=== PATIENT | female | born 1995 | race Caucasian/White ===

== ENCOUNTER 2019-05-07 16:49 | Emergency (ER) | payer MEDICAID, SELFPAY ==
[2019-05-07] VITALS (10 sets, daily range): BP systolic 91–124; BP diastolic 43–68; PULSE 63–92; RESP 16–20; TEMP 36.5–37.1; O2SAT 96–100; BMI 22.1
--- NOTE | 2019-05-07 16:56 | ED_ITS ---
Entered by Pari Wylie, acting as scribe for Documented by User: Tania Tran Key 05/07/19 17:47 HPI - Abdominal Pain General: Chief Complaint: Abdominal Pain Stated Complaint: Vomiting Time Seen by Provider: 05/07/19 16:55 Source: patient Mode of arrival: ambulatory History of Present Illness: HPI narrative: 23 yo female presents with nausea and vomiting. pt states this started last night. pt has had abdomen pain. pt states she is unable to stop vomiting and having muscle aches. pt has had diarrhea. pt denies any other symptoms at this time. MD elicited complaint: abdominal pain Onset (ago): day(s) (last night) Pain Consistency: constant Location: RLQ and LLQ Quality: cramping Radiation: LLQ and RLQ Exacerbating factors: vomiting Relieving factors: vomiting Associated Symptoms: Reports diarrhea Review of Systems GI: Reports: diarrhea PFSH ED PFSH: Statuses (acute, chronic, etc) shown below reflect problem list status as previously entered and may not be historically accurate Social History Smoking and tobacco status: never smoked Course Vital Signs: Vital signs: Vital Signs Temperature 97.7 F 05/07/19 16:57 Pulse Rate 82 05/07/19 18:35 Respiratory Rate 18 05/07/19 18:35 Blood Pressure 91/43 05/07/19 18:35 Pulse Oximetry 98 05/07/19 18:35 MDM - Abdominal Pain Lab Data: Labs: Lab Results 05/07/19 05/07/19 05/07/19 Range/Units 17:12 17:12 18:10 WBC 8.4 (4.0-10.0) 10^3/ uL RBC 4.43 (4.1-5.3) 10^6/u L Hgb 13.1 (11.5-15.3) g/dL Hct 38.6 (37.0-47.0) % MCV 87.1 (81-99) fL MCH 29.6 (28.0-34.0) pg MCHC 33.9 (30.0-36.0) g/dL RDW 12.5 (12.1-15.1) % Plt Count 248 (130-400) 10^3/c mm MPV 10.9 H (7.4-10.4) fL Neut % (Auto) 91.9 % Lymph % (Auto) 6.5 % [place] % (Auto) 1.3 % Eos % (Auto) 0.0 % Baso % (Auto) 0.1 % Neut # (Auto) 7.7 (1.8-7.7) 10^3/u L Lymph # (Auto) 0.5 L (0.8-4.8) 10^3/u L [place] # (Auto) 0.1 L (0.2-0.9) 10^3/u L Eos # (Auto) 0.0 (0.0-0.8) 10^3/u L Baso # (Auto) 0.0 (0.0-0.1) 10^3/u L Nucleated RBC % (a uto) 0 % Nucleated RBCs # 0.0 /100WBC Sodium 136 (136-145) mmol/L Potassium 3.6 (3.5-5.1) mmol/L Chloride 101 (98-107) mmol/L Carbon Dioxide 19 L (22-29) mmol/L Anion Gap 19.6 H (5-19) BUN 12 (6-20) mg/dL Creatinine 0.8 (0.5-0.9) mg/dL GFR Calculation 90.5 (90-130) mL/min Glucose 157 H (74-109) mg/dL Calcium 10.2 H (8.6-10.0) mg/Dl Total Bilirubin 0.5 (0.15-1.2) mg/dL AST 34 H (0-32) U/L ALT 40 H (0-33) U/L Alkaline Phosphata se 80 (35-105) IU/L Total Protein 7.6 (6.6-8.7) g/dL Albumin 5.0 (3.5-5.2) g/dL Globulin 2.6 (1.3-4.6) g/dL Lipase 8 L (13-60) U/L HCG, Qual Negative (Negative) Urine Color (Yellow) Urine Appearance (CLEAR) Urine pH (5-7) Ur Specific Gravit y (1.005-1.030) Urine Protein (Negative) Urine Glucose (UA) (Normal) Urine Ketones (Negative) Urine Occult Blood (Negative) Urine Nitrate (Negative) Urine Bilirubin (NEGATIVE) Urine Urobilinogen (Negative) mg/dL Ur Leukocyte Una ase (Negative) Urine RBC (0-2) /hpf Urine WBC (0-5) /hpf Ur Squamous Epith Cells (0-5) Amorphous Sediment Urine Bacteria (NONE) Urine Mucus 05/07/19 Range/Units 18:10 WBC (4.0-10.0) 10^3/ uL RBC (4.1-5.3) 10^6/u L Hgb (11.5-15.3) g/dL Hct (37.0-47.0) % MCV (81-99) fL MCH (28.0-34.0) pg MCHC (30.0-36.0) g/dL RDW (12.1-15.1) % Plt Count (130-400) 10^3/c mm MPV (7.4-10.4) fL Neut % (Auto) % Lymph % (Auto) % [place] % (Auto) % Eos % (Auto) % Baso % (Auto) % Neut # (Auto) (1.8-7.7) 10^3/u L Lymph # (Auto) (0.8-4.8) 10^3/u L [place] # (Auto) (0.2-0.9) 10^3/u L Eos # (Auto) (0.0-0.8) 10^3/u L Baso # (Auto) (0.0-0.1) 10^3/u L Nucleated RBC % (a uto) % Nucleated RBCs # /100WBC Sodium (136-145) mmol/L Potassium (3.5-5.1) mmol/L Chloride (98-107) mmol/L Carbon Dioxide (22-29) mmol/L Anion Gap (5-19) BUN (6-20) mg/dL Creatinine (0.5-0.9) mg/dL GFR Calculation (90-130) mL/min Glucose (74-109) mg/dL Calcium (8.6-10.0) mg/Dl Total Bilirubin (0.15-1.2) mg/dL AST (0-32) U/L ALT (0-33) U/L Alkaline Phosphata se (35-105) IU/L Total Protein (6.6-8.7) g/dL Albumin (3.5-5.2) g/dL Globulin (1.3-4.6) g/dL Lipase (13-60) U/L HCG, Qual (Negative) Urine Color Yellow (Yellow) Urine Appearance Cloudy (CLEAR) Urine pH 5 (5-7) Ur Specific Gravit y 1.020 (1.005-1.030) Urine Protein Trace (Negative) Urine Glucose (UA) Norm (Normal) Urine Ketones 1+ H (Negative) Urine Occult Blood Neg (Negative) Urine Nitrate Negative (Negative) Urine Bilirubin 1+ H (NEGATIVE) Urine Urobilinogen Norm (Negative) mg/dL Ur Leukocyte Una ase Negative (Negative) Urine RBC 0-4 H (0-2) /hpf Urine WBC 5-10 H (0-5) /hpf Ur Squamous Epith Cells 5-10 H (0-5) Amorphous Sediment 3+ Urine Bacteria 1+ H (NONE) Urine Mucus Trace Discharge Plan Discharge Patient Disposition: Home, Self-Care Clinical Impression: Gastroenteritis Condition: Stable Prescriptions: New ondansetron HCl [Zofran] 4 mg tablet 4 mg PO Q6H PRN (Reason: nausea and vomiting) Qty: 10 RF: 0 ketorolac 10 mg tablet 10 mg PO TID PRN (Reason: pain) Qty: 10 RF: 0 Discharge Orders: Discharge Order (Routine); Ordered 05/07/19 Ordered By: Deshaun Earl Referrals: Aureliano Rodas MD [Primary Care Provider] - Discharge Diet: Advance as tolerated Discharge Activity: Increase activity as tolerated Patient Instructions: Acute Nausea and Vomiting (ED), Gastroenteritis (ED) Activity Restrictions/Additional Instructions: Clear liquids for the next 12 hours, then advance diet as tolerated. Return for vomiting liquids despite medications, continued fever despite medications, worsening pain, other concerning symptoms. Coding Level of Care Code ED Aircraft Assembler for Chg Fwd Documented by User: Deshaun Earl DO 05/07/19 19:30 HPI - Abdominal Pain General: Chief Complaint: Abdominal Pain Stated Complaint: Vomiting Time Seen by Provider: 05/07/19 16:55 PFSH ED PFS: Statuses (acute, chronic, etc) shown below reflect problem list status as previously entered and may not be historically accurate Social History Smoking and tobacco status: never smoked Course ED course: 23-year-old female with vomiting and diarrhea. Seen earlier by Dr. Lang, and checked out to me. She states on reexam she is feeling much better. She is held down liquids here. Her labs are benign save a bicarbonate level of 19. She has had 2 L. She will be allowed discharge Vital Signs: Vital signs: Vital Signs Temperature 97.7 F 05/07/19 16:57 Pulse Rate 82 05/07/19 18:35 Respiratory Rate 18 05/07/19 18:35 Blood Pressure 91/43 05/07/19 18:35 Pulse Oximetry 98 05/07/19 18:35 MDM - Abdominal Pain Lab Data: Labs: Lab Results 05/07/19 05/07/19 05/07/19 Range/Units 17:12 17:12 18:10 WBC 8.4 (4.0-10.0) 10^3/ uL RBC 4.43 (4.1-5.3) 10^6/u L Hgb 13.1 (11.5-15.3) g/dL Hct 38.6 (37.0-47.0) % MCV 87.1 (81-99) fL MCH 29.6 (28.0-34.0) pg MCHC 33.9 (30.0-36.0) g/dL RDW 12.5 (12.1-15.1) % Plt Count 248 (130-400) 10^3/c mm MPV 10.9 H (7.4-10.4) fL Neut % (Auto) 91.9 % Lymph % (Auto) 6.5 % [place] % (Auto) 1.3 % Eos % (Auto) 0.0 % Baso % (Auto) 0.1 % Neut # (Auto) 7.7 (1.8-7.7) 10^3/u L Lymph # (Auto) 0.5 L (0.8-4.8) 10^3/u L [place] # (Auto) 0.1 L (0.2-0.9) 10^3/u L Eos # (Auto) 0.0 (0.0-0.8) 10^3/u L Baso # (Auto) 0.0 (0.0-0.1) 10^3/u L Nucleated RBC % (a uto) 0 % Nucleated RBCs # 0.0 /100WBC Sodium 136 (136-145) mmol/L Potassium 3.6 (3.5-5.1) mmol/L Chloride 101 (98-107) mmol/L Carbon Dioxide 19 L (22-29) mmol/L Anion Gap 19.6 H (5-19) BUN 12 (6-20) mg/dL Creatinine 0.8 (0.5-0.9) mg/dL GFR Calculation 90.5 (90-130) mL/min Glucose 157 H (74-109) mg/dL Calcium 10.2 H (8.6-10.0) mg/Dl Total Bilirubin 0.5 (0.15-1.2) mg/dL AST 34 H (0-32) U/L ALT 40 H (0-33) U/L Alkaline Phosphata se 80 (35-105) IU/L Total Protein 7.6 (6.6-8.7) g/dL Albumin 5.0 (3.5-5.2) g/dL Globulin 2.6 (1.3-4.6) g/dL Lipase 8 L (13-60) U/L HCG, Qual Negative (Negative) Urine Color (Yellow) Urine Appearance (CLEAR) Urine pH (5-7) Ur Specific Gravit y (1.005-1.030) Urine Protein (Negative) Urine Glucose (UA) (Normal) Urine Ketones (Negative) Urine Occult Blood (Negative) Urine Nitrate (Negative) Urine Bilirubin (NEGATIVE) Urine Urobilinogen (Negative) mg/dL Ur Leukocyte Una ase (Negative) Urine RBC (0-2) /hpf Urine WBC (0-5) /hpf Ur Squamous Epith Cells (0-5) Amorphous Sediment Urine Bacteria (NONE) Urine Mucus 05/07/19 Range/Units 18:10 WBC (4.0-10.0) 10^3/ uL RBC (4.1-5.3) 10^6/u L Hgb (11.5-15.3) g/dL Hct (37.0-47.0) % MCV (81-99) fL MCH (28.0-34.0) pg MCHC (30.0-36.0) g/dL RDW (12.1-15.1) % Plt Count (130-400) 10^3/c mm MPV (7.4-10.4) fL Neut % (Auto) % Lymph % (Auto) % [place] % (Auto) % Eos % (Auto) % Baso % (Auto) % Neut # (Auto) (1.8-7.7) 10^3/u L Lymph # (Auto) (0.8-4.8) 10^3/u L [place] # (Auto) (0.2-0.9) 10^3/u L Eos # (Auto) (0.0-0.8) 10^3/u L Baso # (Auto) (0.0-0.1) 10^3/u L Nucleated RBC % (a uto) % Nucleated RBCs # /100WBC Sodium (136-145) mmol/L Potassium (3.5-5.1) mmol/L Chloride (98-107) mmol/L Carbon Dioxide (22-29) mmol/L Anion Gap (5-19) BUN (6-20) mg/dL Creatinine (0.5-0.9) mg/dL GFR Calculation (90-130) mL/min Glucose (74-109) mg/dL Calcium (8.6-10.0) mg/Dl Total Bilirubin (0.15-1.2) mg/dL AST (0-32) U/L ALT (0-33) U/L Alkaline Phosphata se (35-105) IU/L Total Protein (6.6-8.7) g/dL Albumin (3.5-5.2) g/dL Globulin (1.3-4.6) g/dL Lipase (13-60) U/L HCG, Qual (Negative) Urine Color Yellow (Yellow) Urine Appearance Cloudy (CLEAR) Urine pH 5 (5-7) Ur Specific Gravit y 1.020 (1.005-1.030) Urine Protein Trace (Negative) Urine Glucose (UA) Norm (Normal) Urine Ketones 1+ H (Negative) Urine Occult Blood Neg (Negative) Urine Nitrate Negative (Negative) Urine Bilirubin 1+ H (NEGATIVE) Urine Urobilinogen Norm (Negative) mg/dL Ur Leukocyte Una ase Negative (Negative) Urine RBC 0-4 H (0-2) /hpf Urine WBC 5-10 H (0-5) /hpf Ur Squamous Epith Cells 5-10 H (0-5) Amorphous Sediment 3+ Urine Bacteria 1+ H (NONE) Urine Mucus Trace Discharge Plan Discharge Patient Disposition: Home, Self-Care Clinical Impression: Gastroenteritis Condition: Stable Prescriptions: New ondansetron HCl [Zofran] 4 mg tablet 4 mg PO Q6H PRN (Reason: nausea and vomiting) Qty: 10 RF: 0 ketorolac 10 mg tablet 10 mg PO TID PRN (Reason: pain) Qty: 10 RF: 0 Discharge Orders: Discharge Order (Routine); Ordered 05/07/19 Ordered By: Deshaun Earl Referrals: Aureliano Rodas MD [Primary Care Provider] - Discharge Diet: Advance as tolerated Discharge Activity: Increase activity as tolerated Patient Instructions: Acute Nausea and Vomiting (ED), Gastroenteritis (ED) Activity Restrictions/Additional Instructions: Clear liquids for the next 12 hours, then advance diet as tolerated. Return for vomiting liquids despite medications, continued fever despite medications, worsening pain, other concerning symptoms. Coding Level of Care Code ED Aircraft Assembler for Judyg Fwd The documentation recorded by the Dejan alvarado Bridget Annette, accurately reflects the service I personally performed and the decisions made by Key gillespie Eli N May 07, 2019 16:49
--- NOTE | 2019-05-07 16:59 | CTR_ITS ---
PROCEDURE INFORMATION: Exam: CT Abdomen And Pelvis With Contrast Exam date and time: 05/07/2019 5:05 PM Age: 23 years old Clinical indication: Abdominal pain; Additional info: Lower abdominal pain TECHNIQUE: Imaging protocol: Computed tomography of the abdomen and pelvis with intravenous contrast. Total DLP: 604.2 mGy-cm Radiation optimization: All CT scans at this facility use at least one of these dose optimization techniques: automated exposure control; mA and/or kV adjustment per patient size (includes targeted exams where dose is matched to clinical indication); or iterative reconstruction. Contrast material: OMNI 300; Contrast volume: 95 ml; Contrast route: IV; COMPARISON: CT abdomen pelvis w con* [id number] 03/19/2018 5:35 PM FINDINGS: Liver: Normal. No mass. Gallbladder and bile ducts: Normal. No calcified stones. No ductal dilation. Pancreas: Normal. No ductal dilation. Spleen: Normal. No splenomegaly. Adrenals: Normal. No mass. Kidneys and ureters: Normal. No hydronephrosis. Stomach and bowel: Unremarkable. No obstruction. No mucosal thickening. Appendix: No evidence of appendicitis. Intraperitoneal space: Unremarkable. No free air. No significant fluid collection. Vasculature: Unremarkable. No abdominal aortic aneurysm. Lymph nodes: Unremarkable. No enlarged lymph nodes. Bladder: Unremarkable as visualized. 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: The uterus and ovaries appear normal. Bones/joints: Unremarkable. No acute fracture. Soft tissues: Unremarkable. CT/CT abdomen pelvis w con* [id number] IMPRESSION: No acute abnormality is seen in the abdomen or pelvis. Radiation Dose CTDIVOL = (mGy): DLP = 604.2 (mGy-cm)
[2019-05-07] MEDS: sodium chloride 0.9% 1,000 ML 999 ML IV ×2 (17:31→18:37)
[2019-05-07] MEDS: ondansetron 2 mg/ML SDV 2 mL 4 MG IVP ×2 (17:32→22:20)
[2019-05-07] MEDS: morphine 4 mg/mL SDV 1 mL IVP (17:32)
[2019-05-07 17:48] LABS: Alanine Aminotransferase 40 U/L (0-33); Alkaline Phosphatase 80 IU/L (35-105); Anion Gap 19.6 (5-19); Aspartate Amino Transferase 34 U/L (0-32); Blood Urea Nitrogen 12 mg/dL (6-20); Calcium 10.2 mg/Dl (8.6-10.0); Carbon Dioxide 19 mmol/L (22-29); Chloride 101 mmol/L (98-107); Globulin 2.6 g/dL (1.3-4.6); Glomerular Filtration Rate 90.5 mL/min (90-130); Glucose 157 mg/dL (74-109); Lipase 8 U/L (13-60); Potassium 3.6 mmol/L (3.5-5.1); Sodium 136 mmol/L (136-145); Total Bilirubin 0.5 mg/dL (0.15-1.2); Total Protein 7.6 g/dL (6.6-8.7)
[2019-05-07 17:59] LABS: Basophils % 0.1 %; Hematocrit 38.6 % (37.0-47.0); Hemoglobin 13.1 g/dL (11.5-15.3); Lymphocytes # 0.5 10^3/uL (0.8-4.8); Lymphocytes % 6.5 %; Mean Corpuscular HGB Conc 33.9 g/dL (30.0-36.0); Mean Corpuscular Hemoglobin 29.6 pg (28.0-34.0); Mean Corpuscular Volume 87.1 fL (81-99); Mean Platelet Volume 10.9 fL (7.4-10.4); Monocytes # 0.1 10^3/uL (0.2-0.9); Monocytes % 1.3 %; Neutrophils # 7.7 10^3/uL (1.8-7.7); Neutrophils % 91.9 %; Nucleated Red Blood Cells % 0 %; Platelet Count 248 10^3/cmm (130-400); Red Blood Count 4.43 10^6/uL (4.1-5.3); Red Cell Distribution Width 12.5 % (12.1-15.1); White Blood Count 8.4 10^3/uL (4.0-10.0)
--- NOTE | 2019-05-07 18:15 | PC.NURSE ---
Pt to CT
[2019-05-07 18:51] LABS: HCG Qualitative Urine. Negative (Negative)
--- NOTE | 2019-05-07 19:02 | PC.NURSE ---
Report given to SUMI Maza
[2019-05-07 19:05] LABS: Urine Appearance Cloudy (CLEAR); Urine Color Yellow (Yellow)
[2019-05-07 19:06] LABS: Bilirubin Urine 1+ (NEGATIVE); Blood Urine Neg (Negative); Glucose Urine UA Norm (Normal); Ketones Urine 1+ (Negative); Leukocyte Esterase Urine Negative (Negative); Nitrate Urine Negative (Negative); Protein Urine Trace (Negative); Urobilinogen Urine Norm (Negative); pH Urine 5 (5-7)
[2019-05-07 19:14] LABS: Mucus Urine TRACE
[2019-05-07 19:15] LABS: Bacteria Urine 1+; RBC Urine 0-4 /hpf (0-2)
[2019-05-07 19:16] LABS: Add Urine Culture? No; Amorphous Sediment Urine 3+
--- NOTE | 2019-05-07 19:46 | PC.NURSE ---
Patient is a&O x 4, NAD, cooperative and resting quietly. Pt has no complaints at present.
== END 2019-05-07 22:35 | disposition home or self-care (01) ==
PROVIDERS: Emergency Medicine; Emergency Provider Emergency Medicine; Family Provider Family Medicine; PCP Family Medicine
DX: K52.9 Noninfective gastroenteritis and colitis, unspecified (principal)
CPT/HCPCS: 74177; 80053; 81001; 81025; 83690; 85025; 96360; 96361; 96374; 99283; J2270; J2405; J7030; Q9967

== ENCOUNTER 2019-08-31 08:28 | Emergency (ER) | payer MEDICAID, SELFPAY ==
--- NOTE | 2019-08-31 08:31 | W.ED.NAVMDI ---
HPI - Nausea/Vomiting/Diarrhea General: Chief complaint: Nausea/Vomiting/Diarrhea Stated complaint: N/V Time Seen by Provider: 08/31/19 08:29 Source: patient Mode of arrival: ambulatory Limitations: no limitations History of Present Illness: HPI Narrative: Patient is a 23-year-old female who presents to ED today with complaints of nausea, vomiting, diarrhea, abdominal pain that began yesterday. Patient tells me she has had a few episodes of watery nonbloody diarrhea. She reports countless episodes of vomiting but when asked specifically they are more dry heaving than actual vomit. Patient states she has had these episodes several times previously. When asked she does admit to heavy daily marijuana use over the past several years. She seems immediately agitated when I even suggested this could be cannabis hyperemesis syndrome. She states she was admitted to the hospital in 2018 and was told she needed work-up for Lupus and Crohn's so thinks her symptoms might be related to this. She never followed up or received with the work-up requested. Patient has not been running fevers. She has not had any recent travel. No sick contacts. No bad food exposure. No recent antibiotic use. MD elicited complaint: nausea, vomiting, diarrhea and abdominal pain Onset (ago): hour(s) Description of diarrhea: watery Associated nausea: Yes Associated abdominal pain: Yes Location of pain: Diffuse Pain consistency: constant Severity: moderate Quality: cramping Exacerbating factors: none Relieving factors: none Context: marijuana use Associated symtoms: Reports nausea; Denies change in vision, chest pain, dysuria, fatigue, headache(s), malaise, palpitations or syncope Review of Systems Const: Denies: fever, chills, body aches, fatigue or malaise Eyes: Denies: change in vision, blurry vision, photophobia, floaters or seeing flashes ENMT: Denies: throat pain, enlarged tonsils or painful swallowing Card: Denies: chest pain, palpitations, irregular heart rhythm, lightheadedness, syncope or shortness of breath on exertion Resp: Denies: shortness of breath, productive cough or pain on inspiration GI: Reports: abdominal pain, nausea, vomiting and diarrhea; Denies: vomiting blood, coffee grounds in vomit, difficulty swallowing, heartburn/indigestion, painful bowel movements, blood in stool, black tarry stool, mucus in stool, white/light colored stool or fatty stool : Denies: flank pain, difficulty urinating, painful urination, urinary frequency, urinary urgency or urinary hesitancy Musc: Denies: neck pain, back pain or joint pain Skin/Breast: Denies: rash Neuro: Denies: headache, numbness in extremities, weakness in extremities or changes in sensation PFSH ED PFSH: Social History Smoking and tobacco status: never smoked Physical Exam Const: COMMON NORMALS: average body habitus, oriented x3, no limitations, healthy appearing, alert and well nourished GENERAL APPEARANCE: in distress (nauseous, dry heaving ) HENMT: COMMON NORMALS: normocephalic and head/scalp atraumatic HEAD & SCALP: normocephalic and atraumatic Resp: COMMON NORMALS: normal respiratory effort and clear to auscultation bilaterally AUSCULTATION: clear to auscultation bilaterally Cardio: COMMON NORMALS: regular rate and regular rhythm RATE: regular rate RHYTHM: regular rhythm GI: COMMON NORMALS: normal to inspection, nondistended, normoactive bowel sounds, no hepatosplenomegaly and no masses PALPATION: Yes tender (mild diffusely ) and Yes no hepatosplenomegaly : COMMON NORMALS: Yes no CVA tenderness BLADDER/KIDNEY EXAM: Yes no CVA tenderness Back/Pelvis: COMMON NORMALS: no CVA tenderness Extremity: COMMON NORMALS: normal to inspection Neuro: COMMON NORMALS: oriented x3 SENSORIUM/ORIENTATION: Yes alert Skin: COMMON NORMALS: no rashes or lesions noted GENERAL SKIN EXAM: no rashes or lesions noted Course Vital Signs: Vital signs: Vital Signs Pulse Rate 75 08/31/19 11:28 Respiratory Rate 16 08/31/19 11:28 Blood Pressure 118/70 08/31/19 11:28 Pulse Oximetry 98 08/31/19 11:28 MDM - Nausea/Vomiting/Diarrhea Lab Data: Labs: Lab Results 08/31/19 08/31/19 08/31/19 Range/Units 08:39 08:39 08:39 WBC 8.6 (4.0-10.0) 10^3/ uL RBC 4.57 (4.1-5.3) 10^6/u L Hgb 13.6 (11.5-15.3) g/dL Hct 40.8 (37.0-47.0) % MCV 89.3 (81-99) fL MCH 29.8 (28.0-34.0) pg MCHC 33.3 (30.0-36.0) g/dL RDW 12.5 (12.1-15.1) % Plt Count 255 (130-400) 10^3/c mm MPV 10.5 H (7.4-10.4) fL Neut % (Auto) 73.4 % Lymph % (Auto) 22.1 % [place] % (Auto) 3.5 % Eos % (Auto) 0.2 % Baso % (Auto) 0.4 % Neut # (Auto) 6.3 (1.8-7.7) 10^3/u L Lymph # (Auto) 1.9 (0.8-4.8) 10^3/u L [place] # (Auto) 0.3 (0.2-0.9) 10^3/u L Eos # (Auto) 0.0 (0.0-0.8) 10^3/u L Baso # (Auto) 0.0 (0.0-0.1) 10^3/u L Nucleated RBC % (a uto) 0 % Nucleated RBCs # 0.0 /100WBC Sodium 138 (136-145) mmol/L Potassium 3.8 (3.5-5.1) mmol/L Chloride 103 (98-107) mmol/L Carbon Dioxide 21 L (22-29) mmol/L Anion Gap 17.8 (5-19) BUN 10 (6-20) mg/dL Creatinine 0.8 (0.5-0.9) mg/dL GFR Calculation 90.5 (90-130) mL/min Glucose 166 H (65-115) mg/dL Calculated Osmolal ity 286 (285-295) mOsm/k g Calcium 10.5 (8.5-10.5) mg/dL Total Bilirubin 0.5 (0.15-1.2) mg/dL AST 21 (0-32) U/L ALT 23 (0-33) U/L Alkaline Phosphata se 50 (35-105) IU/L Total Protein 7.8 (6.6-8.7) g/dL Albumin 4.8 (3.5-5.2) g/dL Globulin 3.0 (1.3-4.6) g/dL Lipase 13 (13-60) U/L HCG, Qual Negative (Negative) Discharge Plan Discharge Patient Disposition: Home, Self-Care Clinical Impression: Cannabis hyperemesis syndrome concurrent with and due to cannabis abuse Condition: Stable Prescriptions: Continued Zofran 4 mg tablet 4 mg PO Q6H PRN (Reason: nausea and vomiting) Qty: 15 RF: 0 No Action ketorolac 10 mg tablet 10 mg PO TID PRN (Reason: pain) Qty: 10 RF: 0 Discharge Orders: Discharge Order (Routine); Ordered 08/31/19 Ordered By: Komal Kilpatrick Referrals: Aureliano Rodas MD [Primary Care Provider] - Discharge Diet: Advance as tolerated Discharge Activity: Increase activity as tolerated Patient Instructions: Marijuana Abuse Activity Restrictions/Additional Instructions: You may return to the emergency department for worsening pain, worsening nausea/vomiting, or diarrhea. Return for fevers greater than 100.4 or greater. You may use the prescription Zofran as needed for nausea and vomiting. As we discussed daily heavy marijuana use is not healthy and most likely is causing your symptoms. Ultimately it is up to you whether you stop using this drug. Discharge Date/Time: 08/31/19 11:29 Coding Level of Care Code ED Jumpbasting Canvas Baster for Carlos Ahuja Exam Comprehensive
[2019-08-31 08:33] VITALS: BP 111/66; PULSE 71; RESP 19; O2SAT 99; BMI 23.3
[2019-08-31] MEDS: sodium chloride 0.9% 1,000 ML 999 ML IV (08:49)
[2019-08-31] MEDS: LORazepam 2 mg/mL INJ 1 mL 1 MG IVP (08:50)
[2019-08-31] MEDS: ondansetron 2 mg/ML SDV 2 mL 4 MG IVP (08:50)
[2019-08-31 08:51] LABS: Basophils % 0.4 %; Eosinophils % 0.2 %; Hematocrit 40.8 % (37.0-47.0); Hemoglobin 13.6 g/dL (11.5-15.3); Lymphocytes # 1.9 10^3/uL (0.8-4.8); Lymphocytes % 22.1 %; Mean Corpuscular HGB Conc 33.3 g/dL (30.0-36.0); Mean Corpuscular Hemoglobin 29.8 pg (28.0-34.0); Mean Corpuscular Volume 89.3 fL (81-99); Mean Platelet Volume 10.5 fL (7.4-10.4); Monocytes # 0.3 10^3/uL (0.2-0.9); Monocytes % 3.5 %; Neutrophils # 6.3 10^3/uL (1.8-7.7); Neutrophils % 73.4 %; Nucleated Red Blood Cells % 0 %; Platelet Count 255 10^3/cmm (130-400); Red Blood Count 4.57 10^6/uL (4.1-5.3); Red Cell Distribution Width 12.5 % (12.1-15.1); White Blood Count 8.6 10^3/uL (4.0-10.0)
[2019-08-31] MEDS: haloperidol inj 5 mg/mL INJ 1 mL IVP (08:52)
[2019-08-31 09:10] LABS: Alanine Aminotransferase 23 U/L (0-33); Albumin Level 4.8 g/dL (3.5-5.2); Alkaline Phosphatase 50 IU/L (35-105); Anion Gap 17.8 (5-19); Aspartate Amino Transferase 21 U/L (0-32); Blood Urea Nitrogen 10 mg/dL (6-20); Calcium 10.5 mg/dL (8.5-10.5); Carbon Dioxide 21 mmol/L (22-29); Chloride 103 mmol/L (98-107); Glomerular Filtration Rate 90.5 mL/min (90-130); Glucose 166 mg/dL (65-115); Lipase 13 U/L (13-60); Osmolality Calculated 286 mOsm/kg (285-295); Potassium 3.8 mmol/L (3.5-5.1); Sodium 138 mmol/L (136-145); Total Bilirubin 0.5 mg/dL (0.15-1.2); Total Protein 7.8 g/dL (6.6-8.7)
[2019-08-31 09:13] LABS: HCG, Serum Qual Negative (Negative)
[2019-08-31 10:16] VITALS: PULSE 70; RESP 15; O2SAT 98
--- NOTE | 2019-08-31 10:43 | PC.NURSE ---
Upon D/C pt started to vomit again. Komal MCCANN informed, orders received.
[2019-08-31 10:45] VITALS: RESP 16; O2SAT 98
[2019-08-31] MEDS: promethazine 25 mg/mL SDV 1 mL IM (11:09)
[2019-08-31 11:28] VITALS: BP 118/70; PULSE 75; RESP 16; O2SAT 98
== END 2019-08-31 11:29 | disposition home or self-care (01) ==
PROVIDERS: Emergency Provider Physician Assistant; Family Provider Family Medicine; PCP Family Medicine
DX: F12.188 Cannabis abuse with other cannabis-induced disorder (principal); R11.10 Vomiting, unspecified
CPT/HCPCS: 12345; 80053; 83690; 84703; 85025; 96361; 96372; 96374; 96375; 99282; 99283; J1630; J2060; J2405; J2550; J7030

== ENCOUNTER 2019-09-02 09:54 | Emergency (ER) | payer MEDICAID, SELFPAY ==
--- NOTE | 2019-09-02 09:57 | W.ED.NAVMDI ---
HPI - Nausea/Vomiting/Diarrhea General: Stated complaint: N/V Time Seen by Provider: 09/02/19 09:57 Source: patient Mode of arrival: ambulatory Limitations: no limitations Review of Systems General: Reports: 10 or more systems reviewed and unremarkable except in HPI and below PFSH ED PFSH: Social History Smoking and tobacco status: never smoked Physical Exam Const: COMMON NORMALS: no apparent distress and oriented x3 GENERAL APPEARANCE: cooperative HENMT: COMMON NORMALS: normocephalic, TM's normal bilaterally and external nose normal HEAD & SCALP: normal to inspection and normocephalic NOSE: external nose normal TYMPANIC MEMBRANE: TM's normal bilaterally MOUTH: oral and palatal mucosa normal THROAT: posterior oropharynx normal Eye: GENERAL EYE: normal appearance of both eyes Neck/C-Spine: COMMON NORMALS: full ROM Lymph: LYMPHATIC: no lymphadenopathy noted Chest: COMMONS NORMALS: inspection of chest normal Resp: COMMON NORMALS: normal respiratory effort EFFORT & INSPECTION: Yes able to speak in complete sentences Cardio: COMMON NORMALS: regular rate and regular rhythm RATE: regular rate RHYTHM: regular rhythm GI: COMMON NORMALS: non-tender : COMMON NORMALS: Yes no CVA tenderness BLADDER/KIDNEY EXAM: Yes no CVA tenderness Back/Pelvis: COMMON NORMALS: no CVA tenderness and thoracic and lumbar spine normal to inspection Extremity: COMMON NORMALS: normal to inspection Neuro: COMMON NORMALS: oriented x3 and moves all extremities Psych: COMMON NORMALS: mental status grossly normal and cooperative Skin: COMMON NORMALS: no rashes or lesions noted GENERAL SKIN EXAM: no rashes or lesions noted Discharge Plan Discharge Prescriptions: No Action ketorolac 10 mg tablet 10 mg PO TID PRN (Reason: pain) Qty: 10 RF: 0 Zofran 4 mg tablet 4 mg PO Q6H PRN (Reason: nausea and vomiting) Qty: 15 RF: 0 Coding Level of Care Code ED Orthotic/Prosthetic Practitioner for Carlos Ahuja
[2019-09-02 10:00] VITALS: BP 114/72; PULSE 70; RESP 17; TEMP 36.9; O2SAT 98; BMI 22.1
--- NOTE | 2019-09-02 10:02 | ED_ITS ---
HPI - Nausea/Vomiting/Diarrhea General: Chief complaint: Nausea/Vomiting/Diarrhea Stated complaint: N/V Time Seen by Provider: 09/02/19 09:57 Source: patient Mode of arrival: ambulatory Limitations: no limitations History of Present Illness: HPI Narrative: 23-year-old female who has a history of cyclical vomiting syndrome along with marijuana abuse. Patient seen here 2 days ago for cyclical vomiting. She states she has continued to vomit. Denies any pain. She is had no fever. MD elicited complaint: nausea and vomiting Pertinent past history: cyclical vomiting Onset (ago): day(s) Associated nausea: Yes Location of pain: None Exacerbating factors: none Relieving factors: none Associated symtoms: Reports nausea; Denies chest pain, dysuria or headache(s) Review of Systems Const: Denies: fever, chills, body aches or change in appetite Eyes: Denies: blurry vision or eye discomfort ENMT: Denies: throat pain or dental pain Card: Denies: chest pain Resp: Denies: shortness of breath GI: Reports: nausea and vomiting : Denies: painful urination Musc: Denies: neck pain or back pain Skin/Breast: Denies: rash Neuro: Denies: headache Psych: Denies: depression Woo/Lymph: Denies: easy bruising All/Imm: Denies: hives PFSH ED PFSH: Social History Smoking and tobacco status: never smoked Physical Exam Const: COMMON NORMALS: no apparent distress, oriented x3 and healthy appearing HENMT: COMMON NORMALS: normocephalic and head/scalp atraumatic HEAD & SCALP: normocephalic and atraumatic Eye: COMMON NORMALS: PERRL and EOMs intact bilaterally PUPIL: Yes PERRL Neck/C-Spine: COMMON NORMALS: full ROM and supple Chest: COMMONS NORMALS: inspection of chest normal and palpation of chest normal Resp: COMMON NORMALS: normal respiratory effort, no retractions, no use of accessory muscles and clear to auscultation bilaterally AUSCULTATION: clear to auscultation bilaterally Cardio: COMMON NORMALS: regular rate, regular rhythm and no murmurs RATE: regular rate RHYTHM: regular rhythm GI: COMMON NORMALS: normal to inspection, nondistended, normoactive bowel sounds, soft to palpation, non-tender and no masses PALPATION: Yes soft Extremity: COMMON NORMALS: normal to inspection and full ROM Neuro: COMMON NORMALS: oriented x3, moves all extremities and no focal motor deficits Psych: COMMON NORMALS: mental status grossly normal, thought process normal and cooperative THOUGHT PROCESS: normal thought process Skin: COMMON NORMALS: no rashes or lesions noted and no wounds GENERAL SKIN EXAM: no rashes or lesions noted Course Vital Signs: Vital signs: Vital Signs Temperature 98.4 F 09/02/19 10:00 Pulse Rate 90 09/02/19 11:42 Respiratory Rate 17 09/02/19 11:42 Blood Pressure 113/71 09/02/19 11:42 Pulse Oximetry 100 09/02/19 11:42 MDM - Nausea/Vomiting/Diarrhea MDM Narrative: Medical decision making narrative: Patient presents here with vomiting and has a history of cyclical vomiting. Patient's lab work here is normal. She is improved after IV nausea meds. Patient is stable for discharge and return if worsening. Lab Data: Labs: Lab Results 09/02/19 09/02/19 09/02/19 Range/Units 10:15 10:15 11:08 WBC 8.9 (4.0-10.0) 10^3/ uL RBC 4.61 (4.1-5.3) 10^6/u L Hgb 13.9 (11.5-15.3) g/dL Hct 41.9 (37.0-47.0) % MCV 90.9 (81-99) fL MCH 30.2 (28.0-34.0) pg MCHC 33.2 (30.0-36.0) g/dL RDW 12.4 (12.1-15.1) % Plt Count 259 (130-400) 10^3/c mm MPV 10.8 H (7.4-10.4) fL Neut % (Auto) 79.2 % Lymph % (Auto) 16.7 % Sully % (Auto) 3.6 % Eos % (Auto) 0.1 % Baso % (Auto) 0.2 % Neut # (Auto) 7.1 (1.8-7.7) 10^3/u L Lymph # (Auto) 1.5 (0.8-4.8) 10^3/u L Sully # (Auto) 0.3 (0.2-0.9) 10^3/u L Eos # (Auto) 0.0 (0.0-0.8) 10^3/u L Baso # (Auto) 0.0 (0.0-0.1) 10^3/u L Nucleated RBC % (a uto) 0 % Nucleated RBCs # 0.0 /100WBC Sodium 138 (136-145) mmol/L Potassium 3.6 (3.5-5.1) mmol/L Chloride 99 (98-107) mmol/L Carbon Dioxide 24 (22-29) mmol/L Anion Gap 18.6 (5-19) BUN 10 (6-20) mg/dL Creatinine 0.9 (0.5-0.9) mg/dL GFR Calculation 79.0 L (90-130) mL/min Glucose 128 H (65-115) mg/dL Calculated Osmolal ity 284 L (285-295) mOsm/k g Calcium 9.9 (8.5-10.5) mg/dL Total Bilirubin 0.5 (0.15-1.2) mg/dL AST 37 H (0-32) U/L ALT 40 H (0-33) U/L Alkaline Phosphata se 51 (35-105) IU/L Total Protein 7.7 (6.6-8.7) g/dL Albumin 4.9 (3.5-5.2) g/dL Globulin 2.8 (1.3-4.6) g/dL Lipase 23 (13-60) U/L HCG, Qual Negative (Negative) Discharge Plan Discharge Patient Disposition: Home, Self-Care Clinical Impression: Cyclical vomiting Condition: Stable Prescriptions: New Compazine 10 mg tablet 10 mg PO Q8H PRN (Reason: nausea and vomiting) Qty: 20 RF: 0 No Action Ativan 1 mg Tablet 1 mg PO DAILY PRN (Reason: Anxiety) RF: 0 ondansetron HCl [Zofran] 4 mg tablet 4 mg PO Q6H PRN (Reason: nausea and vomiting) Qty: 15 RF: 0 Discharge Orders: Discharge Order (Routine); Ordered 09/02/19 Ordered By: Jesse Josue Referrals: Aureliano Rodas MD [Primary Care Provider] - 1-3 days Discharge Diet: Advance as tolerated Discharge Activity: Resume usual activity Patient Instructions: Acute Nausea and Vomiting (ED) Stand Alone Forms: Work/School Release Discharge Date/Time: 09/02/19 11:45 Coding Level of Care Code ED Middleware Architect for Carlos Ahuja
[2019-09-02] MEDS: metoclopramide 5 mg/mL SDV 2 mL 10 MG IVP (10:17)
[2019-09-02] MEDS: diphenhydrAMINE 50 mg/mL SDV 1mL IVP (10:17)
[2019-09-02] MEDS: LORazepam 2 mg/mL INJ 1 mL IVP (10:17)
[2019-09-02] MEDS: sodium chloride 0.9% 1,000 ML 999 ML IV (10:22)
--- NOTE | 2019-09-02 10:30 | PC.NURSE ---
Pt spitting in to puke bucket, no vomit seen by nurse. Pt also found sticking her finger down her throat and she stated I just have to throw this up.
[2019-09-02 10:41] LABS: Basophils % 0.2 %; Eosinophils % 0.1 %; Hematocrit 41.9 % (37.0-47.0); Hemoglobin 13.9 g/dL (11.5-15.3); Lymphocytes # 1.5 10^3/uL (0.8-4.8); Lymphocytes % 16.7 %; Mean Corpuscular HGB Conc 33.2 g/dL (30.0-36.0); Mean Corpuscular Hemoglobin 30.2 pg (28.0-34.0); Mean Corpuscular Volume 90.9 fL (81-99); Mean Platelet Volume 10.8 fL (7.4-10.4); Monocytes # 0.3 10^3/uL (0.2-0.9); Monocytes % 3.6 %; Neutrophils # 7.1 10^3/uL (1.8-7.7); Neutrophils % 79.2 %; Nucleated Red Blood Cells % 0 %; Platelet Count 259 10^3/cmm (130-400); Red Blood Count 4.61 10^6/uL (4.1-5.3); Red Cell Distribution Width 12.4 % (12.1-15.1); White Blood Count 8.9 10^3/uL (4.0-10.0)
[2019-09-02 10:52] LABS: Alanine Aminotransferase 40 U/L (0-33); Albumin Level 4.9 g/dL (3.5-5.2); Alkaline Phosphatase 51 IU/L (35-105); Anion Gap 18.6 (5-19); Aspartate Amino Transferase 37 U/L (0-32); Blood Urea Nitrogen 10 mg/dL (6-20); Calcium 9.9 mg/dL (8.5-10.5); Carbon Dioxide 24 mmol/L (22-29); Chloride 99 mmol/L (98-107); Globulin 2.8 g/dL (1.3-4.6); Glucose 128 mg/dL (65-115); Lipase 23 U/L (13-60); Osmolality Calculated 284 mOsm/kg (285-295); Potassium 3.6 mmol/L (3.5-5.1); Sodium 138 mmol/L (136-145); Total Bilirubin 0.5 mg/dL (0.15-1.2); Total Protein 7.7 g/dL (6.6-8.7)
[2019-09-02 11:24] LABS: HCG Qualitative Urine. Negative (Negative)
[2019-09-02 11:42] VITALS: BP 113/71; PULSE 90; RESP 17; O2SAT 100
[2019-09-02 11:55] LABS: Add Urine Microscopic? YES; Bacteria Urine 4+; Bilirubin Urine Neg (NEGATIVE); Blood Urine Neg (Negative); Glucose Urine UA Norm (Normal); Ketones Urine Negative (Negative); Leukocyte Esterase Urine Negative (Negative); Nitrate Urine Negative (Negative); Protein Urine Trace (Negative); Specific Gravity, Urine 1.025 (1.005-1.030); Urine Appearance Hazy (CLEAR); Urine Color Yellow (Yellow); Urobilinogen Urine 1 mg/dL (Negative); WBC Urine 0-4 /hpf (0-5); pH Urine 5 (5-7)
[2019-09-02 11:56] LABS: Add Urine Culture? No
== END 2019-09-02 11:45 | disposition home or self-care (01) ==
PROVIDERS: Emergency Provider Emergency Medicine; Family Provider Family Medicine; PCP Family Medicine
DX: R11.15 Cyclical vomiting syndrome unrelated to migraine (principal)
CPT/HCPCS: 12345; 80053; 81001; 81025; 83690; 85025; 96360; 96361; 96374; 96375; 99283; J1200; J2060; J2765; J7030

== ENCOUNTER 2019-09-04 02:51 | Emergency (ER) | payer MEDICAID, SELFPAY ==
[2019-09-04 03:02] VITALS: BP 134/70; PULSE 85; RESP 22; TEMP 36.4; O2SAT 98; BMI 22.1
[2019-09-04 03:20] LABS: Basophils % 0.3 %; Eosinophils # 0.1 10^3/uL (0.0-0.8); Eosinophils % 0.7 %; Hematocrit 39.3 % (37.0-47.0); Hemoglobin 13.1 g/dL (11.5-15.3); Lymphocytes # 5.4 10^3/uL (0.8-4.8); Lymphocytes % 52.5 %; Mean Corpuscular HGB Conc 33.3 g/dL (30.0-36.0); Mean Corpuscular Volume 90.1 fL (81-99); Mean Platelet Volume 10.8 fL (7.4-10.4); Monocytes # 0.6 10^3/uL (0.2-0.9); Monocytes % 5.5 %; Neutrophils # 4.2 10^3/uL (1.8-7.7); Neutrophils % 40.7 %; Nucleated Red Blood Cells % 0 %; Platelet Count 284 10^3/cmm (130-400); Red Blood Count 4.36 10^6/uL (4.1-5.3); Red Cell Distribution Width 12.3 % (12.1-15.1); White Blood Count 10.2 10^3/uL (4.0-10.0)
[2019-09-04] MEDS: sodium chloride 0.9% 1,000 ML 999 ML IV ×2 (03:22→04:30)
[2019-09-04] MEDS: ondansetron 2 mg/ML SDV 2 mL 4 MG IVP (03:24)
[2019-09-04] MEDS: haloperidol inj 5 mg/mL INJ 1 mL 3 MG IVP ×2 (03:25→04:39)
[2019-09-04] MEDS: LORazepam 2 mg/mL INJ 1 mL 1 MG IVP ×2 (03:26→04:39)
[2019-09-04 03:28] LABS: HCG, Serum Qual Negative (Negative)
[2019-09-04 03:37] LABS: Alanine Aminotransferase 38 U/L (0-33); Albumin Level 4.5 g/dL (3.5-5.2); Alkaline Phosphatase 47 IU/L (35-105); Aspartate Amino Transferase 23 U/L (0-32); Blood Urea Nitrogen 7 mg/dL (6-20); C Reactive Protein 0.4 mg/L (0.0-4.9); Calcium 9.3 mg/dL (8.5-10.5); Carbon Dioxide 23 mmol/L (22-29); Chloride 102 mmol/L (98-107); Globulin 2.6 g/dL (1.3-4.6); Glucose 122 mg/dL (65-115); Lipase 49 U/L (13-60); Osmolality Calculated 287 mOsm/kg (285-295); Sodium 140 mmol/L (136-145); Total Bilirubin 0.4 mg/dL (0.15-1.2); Total Protein 7.1 g/dL (6.6-8.7)
--- NOTE | 2019-09-04 04:37 | ED_ITS ---
HPI - Nausea/Vomiting/Diarrhea General: Chief complaint: Abdominal Pain Stated complaint: n/v/d Time Seen by Provider: 09/04/19 03:09 History of Present Illness: HPI Narrative: 23-year-old female presents with vomiting. This is her third visit to the ER in 4 days. She denies fever. She states she has had a small amount of diarrhea. She says that her belly hurts because of all the heaving. No blood in the stool or vomit. She had the same complaint the previous 2 visits, and had been diagnosed with cyclic vomiting syndrome, possibly related to marijuana use. MD elicited complaint: nausea, vomiting, diarrhea and abdominal pain Onset (ago): day(s) (-) Description of vomiting: watery Description of diarrhea: watery Associated nausea: Yes Associated abdominal pain: Yes Location of pain: Diffuse Pain consistency: intermittent Exacerbating factors: vomiting Associated symtoms: Reports headache(s) and nausea; Denies anxiety, change in vision, chest pain, dizziness, dysuria or palpitations Review of Systems Const: Reports: chills; Denies: fever Eyes: Denies: change in vision or blurry vision ENMT: Denies: painful swallowing, swelling of lips/tongue, bleeding gums or facial/sinus pain Card: Denies: chest pain, palpitations, irregular heart rhythm or edema Resp: Denies: shortness of breath, productive cough, non-productive cough or wheezing GI: Reports: nausea : Denies: painful urination or blood in urine Musc: Denies: neck pain or back pain Skin/Breast: Denies: rash, itching or redness Neuro: Reports: headache; Denies: dizziness, vertigo or confusion Psych: Denies: anxiety PFSH ED PFSH: Social History Smoking and tobacco status: never smoked Female 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 History: Date of last menstrual period: 08/31/19 Physical Exam Const: GENERAL APPEARANCE: well developed ORIENTATION/CONSCIOUSNESS: Yes oriented to person, Yes oriented to place and Yes oriented to time HENMT: COMMON NORMALS: normocephalic, external ears normal and external nose normal HEAD & SCALP: normocephalic FACE & SINUS: normal facial exam NOSE: external nose normal and no nasal discharge EXTERNAL EAR: Yes external ears normal MOUTH: tongue normal Eye: COMMON NORMALS: PERRL, EOMs intact bilaterally and conjunctivae normal EYELID: eyelids normal CONJUNCTIVA: Yes conjunctivae normal PUPIL: Yes PERRL Neck/C-Spine: GENERAL: No tracheal deviation Chest: COMMONS NORMALS: inspection of chest normal CHEST: No tenderness Resp: COMMON NORMALS: clear to auscultation bilaterally EFFORT & INSPECTION: No tachypneic, No respiratory distress, No retractions, No uses accessory muscles and No tracheal deviation AUSCULTATION: clear to auscultation bilaterally, no rhonchi, no wheezes and lung sounds not diminished Cardio: COMMON NORMALS: regular rate and regular rhythm RATE: regular rate RHYTHM: regular rhythm HEART SOUNDS: no murmurs PERIPHERAL PULSES: radial pulses present GI: INSPECTION: No abdominal distension AUSCULTATION: No hyperactive bowel sounds and No hypoactive bowel sounds PALPATION: Yes tender (Diffuse), Yes guarding and No rigid Neuro: SENSORIUM/ORIENTATION: Yes oriented to person, Yes oriented to place and Yes oriented to time Psych: COMMON NORMALS: mental status grossly normal Skin: COMMON NORMALS: no rashes or lesions noted GENERAL SKIN EXAM: no rashes or lesions noted Course Vital Signs: Vital signs: Vital Signs Temperature 97.5 F L 09/04/19 03:02 Pulse Rate 85 09/04/19 03:02 Respiratory Rate 22 H 09/04/19 03:02 Blood Pressure 134/70 09/04/19 03:02 Pulse Oximetry 98 09/04/19 03:02 MDM - Nausea/Vomiting/Diarrhea MDM Narrative: Medical decision making narrative: 23-year-old female here for the third time with vomiting. Her white blood cell count is 10. Her potassium is 3. She has been repleted for that. She is received some fluid. She has not vomited in 2 hours. Haldol and Ativan seem to have worked best for her vomiting. She will go home on [employer]. She will be told to not fill the Compazine, as she has not yet. Lab Data: Labs: Lab Results 09/04/19 09/04/19 09/04/19 Range/Units 03:12 03:12 03:12 WBC 10.2 H (4.0-10.0) 10^3/ uL RBC 4.36 (4.1-5.3) 10^6/u L Hgb 13.1 (11.5-15.3) g/dL Hct 39.3 (37.0-47.0) % MCV 90.1 (81-99) fL MCH 30.0 (28.0-34.0) pg MCHC 33.3 (30.0-36.0) g/dL RDW 12.3 (12.1-15.1) % Plt Count 284 (130-400) 10^3/c mm MPV 10.8 H (7.4-10.4) fL Neut % (Auto) 40.7 % Lymph % (Auto) 52.5 % Kidder % (Auto) 5.5 % Eos % (Auto) 0.7 % Baso % (Auto) 0.3 % Neut # (Auto) 4.2 (1.8-7.7) 10^3/u L Lymph # (Auto) 5.4 H (0.8-4.8) 10^3/u L Kidder # (Auto) 0.6 (0.2-0.9) 10^3/u L Eos # (Auto) 0.1 (0.0-0.8) 10^3/u L Baso # (Auto) 0.0 (0.0-0.1) 10^3/u L Nucleated RBC % (a uto) 0 % Nucleated RBCs # 0.0 /100WBC Sodium 140 (136-145) mmol/L Potassium 3.0 L (3.5-5.1) mmol/L Chloride 102 (98-107) mmol/L Carbon Dioxide 23 (22-29) mmol/L Anion Gap 18.0 (5-19) BUN 7 (6-20) mg/dL Creatinine 0.9 (0.5-0.9) mg/dL GFR Calculation 79.0 L (90-130) mL/min Glucose 122 H (65-115) mg/dL Calculated Osmolal ity 287 (285-295) mOsm/k g Calcium 9.3 (8.5-10.5) mg/dL Total Bilirubin 0.4 (0.15-1.2) mg/dL AST 23 (0-32) U/L ALT 38 H (0-33) U/L Alkaline Phosphata se 47 (35-105) IU/L C-Reactive Protein 0.4 (0.0-4.9) mg/L Total Protein 7.1 (6.6-8.7) g/dL Albumin 4.5 (3.5-5.2) g/dL Globulin 2.6 (1.3-4.6) g/dL Lipase 49 (13-60) U/L HCG, Qual Negative (Negative) Discharge Plan Discharge Patient Disposition: Home, Self-Care Clinical Impression: Cyclical vomiting Condition: Stable Prescriptions: New chlorpromazine 25 mg tablet 25 mg PO TID Qty: 10 RF: 0 Discontinued prochlorperazine maleate [Compazine] 10 mg tablet 10 mg PO Q8H PRN (Reason: nausea and vomiting) Qty: 20 RF: 0 No Action Ativan 1 mg Tablet 1 mg PO DAILY PRN (Reason: Anxiety) RF: 0 ondansetron HCl [Zofran] 4 mg tablet 4 mg PO Q6H PRN (Reason: nausea and vomiting) Qty: 15 RF: 0 Discharge Orders: Discharge Order (Routine); Ordered 09/04/19 Ordered By: Deshaun Earl Referrals: Aureliano Rodas MD [Primary Care Provider] - 1-3 days Discharge Diet: Advance as tolerated Discharge Activity: Increase activity as tolerated Patient Instructions: Vomiting - Adult Activity Restrictions/Additional Instructions: Stop the prochlorperazine or Compazine. Take the chlorpromazine scheduled 3 times daily. If you are nauseated, you may use Zofran on top of that as needed. Liquid diet. Increase as tolerated. Return for fever, worsening pain despite treatment, vomiting liquids or medications despite treatment, other concerning symptoms. Coding Level of Care Code ED Finisher Polisher for Carlos Fwd Exam Comprehensive
--- NOTE | 2019-09-04 04:48 | PC.NURSE ---
while hanging 2nd liter with K rider, pt states nausea returning with active vomiting. Orders obtained from Dr Earl
[2019-09-04 06:09] VITALS: BP 136/73; PULSE 72; RESP 16; O2SAT 100
== END 2019-09-04 06:11 | disposition home or self-care (01) ==
PROVIDERS: Emergency Provider Emergency Medicine; Family Provider Family Medicine; PCP Family Medicine
DX: R11.15 Cyclical vomiting syndrome unrelated to migraine (principal)
CPT/HCPCS: 12345; 80053; 83690; 84703; 85025; 86140; 96365; 96366; 96375; 96376; 99282; 99283; A9270; J1630; J2060; J2405; J3480; J7030

== ENCOUNTER 2019-09-04 19:27 | Emergency (ER) | payer MEDICAID, SELFPAY ==
[2019-09-04 19:32] VITALS: PULSE 85; RESP 16; TEMP 37; O2SAT 98; BMI 22.1
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
[2019-09-04 20:20] LABS: Basophils % 0.1 %; Hematocrit 35.9 % (37.0-47.0); Hemoglobin 12.3 g/dL (11.5-15.3); Lymphocytes % 25.9 %; Mean Corpuscular HGB Conc 34.3 g/dL (30.0-36.0); Mean Corpuscular Hemoglobin 30.6 pg (28.0-34.0); Mean Corpuscular Volume 89.3 fL (81-99); Mean Platelet Volume 10.3 fL (7.4-10.4); Monocytes # 0.4 10^3/uL (0.2-0.9); Monocytes % 5.7 %; Neutrophils # 5.3 10^3/uL (1.8-7.7); Neutrophils % 67.9 %; Nucleated Red Blood Cells % 0 %; Platelet Count 208 10^3/cmm (130-400); Red Blood Count 4.02 10^6/uL (4.1-5.3); White Blood Count 7.8 10^3/uL (4.0-10.0)
[2019-09-04 20:37] LABS: Alanine Aminotransferase 32 U/L (0-33); Albumin Level 4.1 g/dL (3.5-5.2); Alkaline Phosphatase 41 IU/L (35-105); Anion Gap 12.3 (5-19); Aspartate Amino Transferase 20 U/L (0-32); Blood Urea Nitrogen 5 mg/dL (6-20); Calcium 9.2 mg/dL (8.5-10.5); Carbon Dioxide 22 mmol/L (22-29); Chloride 105 mmol/L (98-107); Globulin 2.4 g/dL (1.3-4.6); Glomerular Filtration Rate 90.5 mL/min (90-130); Glucose 100 mg/dL (65-115); Osmolality Calculated 278 mOsm/kg (285-295); Potassium 3.3 mmol/L (3.5-5.1); Salicylate 0.4 mg/dL (3-10); Sodium 136 mmol/L (136-145); Total Bilirubin 0.6 mg/dL (0.15-1.2); Total Protein 6.5 g/dL (6.6-8.7)
[2019-09-04 20:39] LABS: Acetaminophen < 5.0 ug/mL (10-30); Alcohol Level < 10 mg/dL (0-10)
[2019-09-04 20:54] LABS: HCG Qualitative Urine. Negative (Negative)
[2019-09-04 21:02] LABS: Amphetamines Screen Urine Negative (Negative); Barbiturates Screen Urine Negative (Negative); Benzodiazepines Screen Urine Positive (Negative); Cocaine Screen Urine Negative (Negative); Opiate Screen Urine Negative (Negative); PCP Screen Urine Negative (Negative); THC Screen Urine Positive (Negative)
== END 2019-09-04 21:21 | disposition home or self-care (01) ==
PROVIDERS: Emergency Provider Emergency Medicine; Family Provider Family Medicine; PCP Family Medicine
DX: F32.9 Major depressive disorder, single episode, unspecified (principal)
CPT/HCPCS: 12345; 36415; 80053; 80306; 80307; 81025; 85025; 99282; 99283; A9270

== ENCOUNTER 2019-09-07 12:38 | Emergency (ER) | payer MEDICAID, SELFPAY ==
[2019-09-07 12:45] VITALS: BP 161/73; PULSE 75; RESP 18; O2SAT 100; BMI 22.1
--- NOTE | 2019-09-07 12:45 | W.ED.NAVMDI ---
HPI - Nausea/Vomiting/Diarrhea General: Chief complaint: Nausea/Vomiting/Diarrhea Stated complaint: n/v x 9 days Time Seen by Provider: 09/07/19 12:45 History of Present Illness: HPI Narrative: 23-year-old female presents complaints of nausea and vomiting this is her fourth ER visit in about the last 10 days. She has had 2 within the last week she denies any hematemesis or coffee-ground emesis she is complaining of cramping abdominal pain she tried several different antiemetics at home including Reglan Zofran and promethazine. She denies fever sweats or chills denies any diarrhea. No respiratory symptoms no symptoms. Reading through the previous notes patient was thought to have chronic cannabinoid syndrome. She been treated with various antiemetics she reports no relief from any of them. She does admit to still using marijuana although she states she is cut back on the use. MD elicited complaint: nausea, vomiting and abdominal pain Pertinent past history: cyclical vomiting and other (Chronic cannabinoid syndrome) Onset (ago): week(s) Description of vomiting: bilious Associated nausea: Yes Location of pain: Diffuse, Epigastric and Periumbilical Pain consistency: colicky Severity: severe Quality: cramping Context: marijuana use Associated symtoms: Reports bloating, loss of apetite and nausea; Denies chest pain, dysuria, fatigue or malaise Review of Systems Const: Denies: fever, chills, body aches, change in appetite, fatigue or malaise ENMT: Denies: throat pain, ear pain, nasal discharge or nasal congestion Card: Denies: chest pain, edema, shortness of breath on exertion or shortness of breath when lying down Resp: Denies: shortness of breath, productive cough or non-productive cough GI: Reports: abdominal pain, nausea, vomiting and bloating; Denies: vomiting blood, coffee grounds in vomit, diarrhea, constipation, blood in stool or black tarry stool : Denies: flank pain, difficulty urinating, painful urination, urinary frequency or urinary urgency Skin/Breast: Denies: rash or itching PFS ED PFSH: Medical History (Updated 09/08/19 @ 00:00 by ) Cannabis hyperemesis syndrome concurrent with and due to cannabis abuse Surgical History (Updated 09/07/19 @ 14:07 by Mino Tate DO) S/P tonsillectomy and adenoidectomy Social History Smoking and tobacco status: never smoked Female 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 History: Date of last menstrual period: 08/31/19 Physical Exam Const: GENERAL APPEARANCE: cooperative and comfortable ORIENTATION/CONSCIOUSNESS: Yes awake, Yes oriented to person, Yes oriented to place and Yes oriented to time HENMT: COMMON NORMALS: normocephalic, head/scalp atraumatic, hearing grossly normal bilaterally, external ears normal, EAC's normal, TM's normal bilaterally, nasal mucous membranes and turbinates normal, moist oral mucous membranes and oropharynx normal HEAD & SCALP: normocephalic and atraumatic NOSE: nasal mucous membranes and turbinates normal EXTERNAL EAR: Yes external ears normal EXTERNAL AUDITORY CANAL: EAC's normal TYMPANIC MEMBRANE: TM's normal bilaterally Eye: COMMON NORMALS: PERRL, EOMs intact bilaterally, conjunctivae normal and no scleral icterus CONJUNCTIVA: Yes conjunctivae normal PUPIL: Yes PERRL Neck/C-Spine: COMMON NORMALS: full ROM, no lymphadenopathy, supple and no JVD Lymph: LYMPHATIC: no lymphadenopathy noted and no lymphedema noted Resp: COMMON NORMALS: normal respiratory effort, no retractions, no use of accessory muscles and clear to auscultation bilaterally AUSCULTATION: clear to auscultation bilaterally Cardio: COMMON NORMALS: no JVD, regular rate, regular rhythm and no murmurs RATE: regular rate RHYTHM: regular rhythm GI: COMMON NORMALS: soft to palpation and no hepatosplenomegaly AUSCULTATION: Yes normoactive bowel sounds PALPATION: Yes soft, Yes tender (Generalized), No guarding, No rigid and Yes no hepatosplenomegaly Extremity: COMMON NORMALS: normal to inspection, normal capillary refill, no clubbing, cyanosis or edema, no calf tenderness and no pedal edema Neuro: SENSORIUM/ORIENTATION: Yes oriented to person, Yes oriented to place and Yes oriented to time Skin: COMMON NORMALS: no rashes or lesions noted GENERAL SKIN EXAM: no rashes or lesions noted Course Vital Signs: Vital signs: Vital Signs Pulse Rate 74 09/07/19 15:59 Respiratory Rate 18 09/07/19 15:59 Blood Pressure 119/68 05/06/20 15:59 Pulse Oximetry 99 09/07/19 15:59 MDM - Nausea/Vomiting/Diarrhea Lab Data: Labs: Lab Results 09/07/19 09/07/19 09/07/19 Range/Units 13:00 13:00 13:00 WBC 8.0 (4.0-10.0) 10^3/ uL RBC 4.99 (4.1-5.3) 10^6/u L Hgb 15.0 (11.5-15.3) g/dL Hct 45.2 (37.0-47.0) % MCV 90.6 (81-99) fL MCH 30.1 (28.0-34.0) pg MCHC 33.2 (30.0-36.0) g/dL RDW 12.3 (12.1-15.1) % Plt Count 281 (130-400) 10^3/c mm MPV 10.8 H (7.4-10.4) fL Neut % (Auto) 79.8 % Lymph % (Auto) 15.6 % Gra[place] % (Auto) 3.9 % Eos % (Auto) 0.1 % Baso % (Auto) 0.3 % Neut # (Auto) 6.4 (1.8-7.7) 10^3/u L Lymph # (Auto) 1.2 (0.8-4.8) 10^3/u L Grainger # (Auto) 0.3 (0.2-0.9) 10^3/u L Eos # (Auto) 0.0 (0.0-0.8) 10^3/u L Baso # (Auto) 0.0 (0.0-0.1) 10^3/u L Nucleated RBC % (a uto) 0 % Nucleated RBCs # 0.0 /100WBC Sodium 136 (136-145) mmol/L Potassium 3.5 (3.5-5.1) mmol/L Chloride 99 (98-107) mmol/L Carbon Dioxide 21 L (22-29) mmol/L Anion Gap 19.5 H (5-19) BUN 7 (6-20) mg/dL Creatinine 0.9 (0.5-0.9) mg/dL GFR Calculation 79.0 L (90-130) mL/min Glucose 124 H (65-115) mg/dL Calculated Osmolal ity 279 L (285-295) mOsm/k g Calcium 9.7 (8.5-10.5) mg/dL Total Bilirubin 0.4 (0.15-1.2) mg/dL AST 28 (0-32) U/L ALT 46 H (0-33) U/L Alkaline Phosphata se 48 (35-105) IU/L Total Protein 7.3 (6.6-8.7) g/dL Albumin 4.6 (3.5-5.2) g/dL Globulin 2.7 (1.3-4.6) g/dL Lipase 35 (13-60) U/L Urine Color (Yellow) Urine Appearance (CLEAR) Urine pH (5-7) Ur Specific Gravit y (1.005-1.030) Urine Protein (Negative) Urine Glucose (UA) (Normal) Urine Ketones (Negative) Urine Blood (Negative) Urine Nitrate (Negative) Urine Bilirubin (NEGATIVE) Urine Urobilinogen (Negative) mg/dL Ur Leukocyte Una ase (Negative) Urine RBC (0-2) /hpf Urine WBC (0-5) /hpf Ur Squamous Epith Cells (0-5) Amorphous Sediment Urine Bacteria (NONE) Serum Ketones Negative (Negative) 09/07/19 Range/Units 13:15 WBC (4.0-10.0) 10^3/ uL RBC (4.1-5.3) 10^6/u L Hgb (11.5-15.3) g/dL Hct (37.0-47.0) % MCV (81-99) fL MCH (28.0-34.0) pg MCHC (30.0-36.0) g/dL RDW (12.1-15.1) % Plt Count (130-400) 10^3/c mm MPV (7.4-10.4) fL Neut % (Auto) % Lymph % (Auto) % Grainger % (Auto) % Eos % (Auto) % Baso % (Auto) % Neut # (Auto) (1.8-7.7) 10^3/u L Lymph # (Auto) (0.8-4.8) 10^3/u L Grainger # (Auto) (0.2-0.9) 10^3/u L Eos # (Auto) (0.0-0.8) 10^3/u L Baso # (Auto) (0.0-0.1) 10^3/u L Nucleated RBC % (a uto) % Nucleated RBCs # /100WBC Sodium (136-145) mmol/L Potassium (3.5-5.1) mmol/L Chloride (98-107) mmol/L Carbon Dioxide (22-29) mmol/L Anion Gap (5-19) BUN (6-20) mg/dL Creatinine (0.5-0.9) mg/dL GFR Calculation (90-130) mL/min Glucose (65-115) mg/dL Calculated Osmolal ity (285-295) mOsm/k g Calcium (8.5-10.5) mg/dL Total Bilirubin (0.15-1.2) mg/dL AST (0-32) U/L ALT (0-33) U/L Alkaline Phosphata se (35-105) IU/L Total Protein (6.6-8.7) g/dL Albumin (3.5-5.2) g/dL Globulin (1.3-4.6) g/dL Lipase (13-60) U/L Urine Color Yellow (Yellow) Urine Appearance Hazy A (CLEAR) Urine pH 6.5 (5-7) Ur Specific Gravit y 1.015 (1.005-1.030) Urine Protein Trace (Negative) Urine Glucose (UA) Norm (Normal) Urine Ketones 1+ H (Negative) Urine Blood 2+ H (Negative) Urine Nitrate Negative (Negative) Urine Bilirubin 1+ H (NEGATIVE) Urine Urobilinogen 1 H (Negative) mg/dL Ur Leukocyte Una ase Negative (Negative) Urine RBC 5-10 H (0-2) /hpf Urine WBC 0-4 H (0-5) /hpf Ur Squamous Epith Cells 0-4 H (0-5) Amorphous Sediment 3+ Urine Bacteria 1+ H (NONE) Serum Ketones (Negative) Imaging Data^: CT Abd/Pel: Radiologist's impression: CT ABDOMEN PELVIS TECHNIQUE: Contrast-enhanced CT of the abdomen and pelvis with coronal and sagittal reformatted images. CLINICAL INFORMATION: abd pain COMPARISON: May 07, 2019 DLP: 713.[address] scans at [facility] use at least one of these dose optimization techniques: automated exposure control; mA and/or kV adjustment per patient size (includes targeted exams where dose is matched to clinical indication); or iterative reconstruction. FINDINGS: Liver is normal in appearance. Normal portal vein and splenic vein. Normal spleen. Adrenal glands are normal. Normal bilateral renal parenchymal enhancement. Upper abdominal aorta is normal. Normal visualized pancreas. Normal splenic vein. Lung bases are well aerated. Tortuous slightly distended cecum with mild constipation. Cecum is low-lying in the lower anterior pelvis. Appendix appears air-filled and normal. Heterogeneous uterine enhancement. Normal physiologic ovaries bilaterally. No significant free fluid in the pelvis. No evidence of small or large bowel obstruction. Normal lumbar spine. Notified Mino Tate DO at 09/07/2019 2:[address]/CT abdomen pelvis w con* [id number] IMPRESSION: 1. Cecum is low-lying in the lower anterior pelvis with mild constipation. Colon is otherwise decompressed normal in appearance. 2. No evidence of acute appendicitis. Appendix appears normal. 3. Heterogeneous uterine enhancement with prominent ovaries bilaterally likely normal and physiologic. 4. No significant free fluid. 5. No hydronephrosis in either kidney. 6. No other significant findings. Dictated By:Quincy Dalal MD Discharge Plan Discharge Patient Disposition: Home, Self-Care Clinical Impression: Cyclical vomiting, Cannabis hyperemesis syndrome concurrent with and due to cannabis abuse Condition: Stable Prescriptions: New Ativan 1 mg tablet 1 mg PO Q8H PRN (Reason: dizziness) Qty: 14 RF: 0 No Action ondansetron HCl [Zofran] 4 mg tablet 4 mg PO Q6H PRN (Reason: nausea and vomiting) Qty: 15 RF: 0 chlorpromazine 25 mg tablet 25 mg PO TID Qty: 10 RF: 0 promethazine 25 mg Tablet 25 mg PO PRN RF: 0 Discharge Orders: Discharge Order (Routine); Ordered 09/07/19 Ordered By: Mino Tate Referrals: Aureliano Rodas MD [Primary Care Provider] - Discharge Diet: Clear Liquid Discharge Activity: Increase activity as tolerated Discharge Date/Time: 09/07/19 16:01 Coding Level of Care Code ED Bioanalyst for Chg Fwd Exam Comprehensive
--- NOTE | 2019-09-07 13:00 | CT_ITS ---
WS: [id number] CT ABDOMEN PELVIS TECHNIQUE: Contrast-enhanced CT of the abdomen and pelvis with coronal and sagittal reformatted image s. CLINICAL INFORMATION: abd pain COMPARISON: May 07, 2019 DLP: 713.[address] scans at [facility] use at least one of these dose optimization techniques: automat ed exposure control; mA and/or kV adjustment per patient size (includes targeted exams where dose is matched to clinical indication); or iterative reconstruction. FINDINGS: Liver is normal in appearance. Normal portal vein and splenic vein. Normal spleen. Adrenal glands are normal. Normal bilateral renal parenchymal enhancement. Upper abdominal aorta is normal. Normal visu alized pancreas. Normal splenic vein. Lung bases are well aerated. Tortuous slightly distended cecum with mild constipation. Cecum is low-lying in the lower anterior pe lvis. Appendix appears air-filled and normal. Heterogeneous uterine enhancement. Normal physiologic o varies bilaterally. No significant free fluid in the pelvis. No evidence of small or large bowel obst ruction. Normal lumbar spine. Notified Mino Tate DO at 09/07/2019 2:[address]/CT abdomen pelvis w con* [id number] IMPRESSION: 1. Cecum is low-lying in the lower anterior pelvis with mild constipation. Col on is otherwise decompressed normal in appearance. 2. No evidence of acute appendicitis. Appendix appears normal. 3. Heterogeneous uterine enhancement with prominent ovaries bilaterally likely normal and physiologic. 4. No significant free fluid. 5. No hydronephrosis in either kidney. 6. No other significant findings.
[2019-09-07 13:10] LABS: Basophils % 0.3 %; Eosinophils % 0.1 %; Hematocrit 45.2 % (37.0-47.0); Lymphocytes # 1.2 10^3/uL (0.8-4.8); Lymphocytes % 15.6 %; Mean Corpuscular HGB Conc 33.2 g/dL (30.0-36.0); Mean Corpuscular Hemoglobin 30.1 pg (28.0-34.0); Mean Corpuscular Volume 90.6 fL (81-99); Mean Platelet Volume 10.8 fL (7.4-10.4); Monocytes # 0.3 10^3/uL (0.2-0.9); Monocytes % 3.9 %; Neutrophils # 6.4 10^3/uL (1.8-7.7); Neutrophils % 79.8 %; Nucleated Red Blood Cells % 0 %; Platelet Count 281 10^3/cmm (130-400); Red Blood Count 4.99 10^6/uL (4.1-5.3); Red Cell Distribution Width 12.3 % (12.1-15.1)
[2019-09-07 13:49] LABS: Urine Appearance Hazy (CLEAR); Urine Color Yellow (Yellow)
[2019-09-07 13:50] LABS: Alanine Aminotransferase 46 U/L (0-33); Albumin Level 4.6 g/dL (3.5-5.2); Alkaline Phosphatase 48 IU/L (35-105); Anion Gap 19.5 (5-19); Aspartate Amino Transferase 28 U/L (0-32); Blood Urea Nitrogen 7 mg/dL (6-20); Calcium 9.7 mg/dL (8.5-10.5); Carbon Dioxide 21 mmol/L (22-29); Chloride 99 mmol/L (98-107); Globulin 2.7 g/dL (1.3-4.6); Glucose 124 mg/dL (65-115); Lipase 35 U/L (13-60); Osmolality Calculated 279 mOsm/kg (285-295); Potassium 3.5 mmol/L (3.5-5.1); Sodium 136 mmol/L (136-145); Total Bilirubin 0.4 mg/dL (0.15-1.2); Total Protein 7.3 g/dL (6.6-8.7)
[2019-09-07 13:50] LABS: Add Urine Microscopic? YES; Bilirubin Urine 1+ (NEGATIVE); Blood Urine 2+ (Negative); Glucose Urine UA Norm (Normal); Ketones Urine 1+ (Negative); Leukocyte Esterase Urine Negative (Negative); Nitrate Urine Negative (Negative); Protein Urine Trace (Negative); Specific Gravity, Urine 1.015 (1.005-1.030); Urobilinogen Urine 1 mg/dL (Negative); pH Urine 6.5 (5-7)
[2019-09-07 13:51] LABS: Amorphous Sediment Urine 3+; Bacteria Urine 1+; Squamous Epithelial Cell Urine 0-4 (0-5); WBC Urine 0-4 /hpf (0-5)
[2019-09-07 13:52] LABS: Add Urine Culture? Yes
[2019-09-07] MEDS: haloperidol inj 5 mg/mL INJ 1 mL IVP (13:59)
[2019-09-07] MEDS: sodium chloride 0.9% 1,000 ML 999 ML IV (14:00)
[2019-09-07] MEDS: LORazepam 2 mg/mL INJ 1 mL IVP (14:02)
[2019-09-07] MEDS: iohexol 300 mg/mL 100 mL Btl IV (14:12)
[2019-09-07 14:37] VITALS: BP 119/69; PULSE 75; RESP 18; O2SAT 100
[2019-09-07 15:00] LABS: Ketone (Acetest) Serum Negative (Negative)
[2019-09-07 15:59] VITALS: BP 119/68; PULSE 74; RESP 18; O2SAT 99
== END 2019-09-07 16:01 | disposition home or self-care (01) ==
PROVIDERS: Emergency Provider Family Medicine; PCP Family Medicine
DX: F12.188 Cannabis abuse with other cannabis-induced disorder (principal); R11.15 Cyclical vomiting syndrome unrelated to migraine
CPT/HCPCS: 12345; 36415; 74177; 80053; 81001; 82009; 83690; 85025; 87086; 96361; 96374; 96375; 99282; 99283; J1630; J2060; J7030; Q9967

== ENCOUNTER 2020-02-18 19:48 | Emergency (ER) | payer MEDICAID, SELFPAY ==
[2020-02-18 20:08] VITALS: BP 124/72; PULSE 67; RESP 19; TEMP 37.2; O2SAT 100; BMI 21.4
[2020-02-18] MEDS: sodium chloride 0.9% 1,000 ML 999 ML IV ×2 (20:32→22:11)
[2020-02-18] MEDS: ondansetron 2 mg/ML SDV 2 mL 4 MG IVP (20:33)
[2020-02-18 20:37] VITALS: BP 97/72; PULSE 60; RESP 18; O2SAT 100
[2020-02-18 20:48] LABS: Basophils % 0.1 %; Hematocrit 42.3 % (37.0-47.0); Lymphocytes # 0.6 10^3/uL (0.8-4.8); Lymphocytes % 2.9 %; Mean Corpuscular HGB Conc 33.1 g/dL (30.0-36.0); Mean Corpuscular Hemoglobin 29.7 pg (28.0-34.0); Mean Corpuscular Volume 89.8 fL (81-99); Mean Platelet Volume 11.1 fL (7.4-10.4); Monocytes # 0.7 10^3/uL (0.2-0.9); Monocytes % 3.4 %; Neutrophils # 19.37 10^3/uL (1.8-7.7); Neutrophils % 92.7 %; Nucleated Red Blood Cells % 0 %; Platelet Count 250 10^3/cmm (130-400); Red Blood Count 4.71 10^6/uL (4.1-5.3); Red Cell Distribution Width 12.8 % (12.1-15.1); White Blood Count 20.9 10^3/uL (4.0-10.0)
[2020-02-18 21:02] LABS: Alanine Aminotransferase 29 U/L (0-33); Albumin Level 5.1 g/dL (3.5-5.2); Alkaline Phosphatase 68 IU/L (35-105); Anion Gap 19.6 (5-19); Aspartate Amino Transferase 26 U/L (0-32); Blood Urea Nitrogen 9 mg/dL (6-20); C Reactive Protein 7.1 mg/L (0.0-4.9); Calcium 10.1 mg/dL (8.5-10.5); Carbon Dioxide 20 mmol/L (22-29); Chloride 101 mmol/L (98-107); Globulin 2.6 g/dL (1.3-4.6); Glomerular Filtration Rate 89.7 mL/min (90-130); Glucose 171 mg/dL (65-115); Lipase 9 U/L (13-60); Osmolality Calculated 287 mOsm/kg (285-295); Potassium 3.6 mmol/L (3.5-5.1); Sodium 137 mmol/L (136-145); Total Bilirubin 1.1 mg/dL (0.15-1.2); Total Protein 7.7 g/dL (6.6-8.7)
[2020-02-18] MEDS: LORazepam 2 mg/mL INJ 1 mL 1 MG IVP (21:05)
[2020-02-18 21:07] VITALS: RESP 18; O2SAT 100
[2020-02-18] MEDS: HYDROmorphone 1 mg/mL INJ 1 mL IVP (21:07)
[2020-02-18] MEDS: haloperidol inj 5 mg/mL INJ 1 mL 3 MG IVP (21:08)
[2020-02-18 21:10] VITALS: BP 105/85; PULSE 62; RESP 18; O2SAT 100
[2020-02-18 21:19] LABS: HCG, Serum Qual Negative (Negative)
[2020-02-18 21:25] LABS: Add Urine Microscopic? YES; Bilirubin Urine Neg (Negative); Blood Urine Neg (Negative); Glucose Urine UA Norm (Normal); Ketones Urine 2+ (Negative); Leukocyte Esterase Urine Trace (Negative); Nitrate Urine Negative (Negative); Protein Urine Neg (Negative); Sulfosalicylic Acid Urine Negative (Negative); Urine Appearance Clear (CLEAR); Urine Color Yellow (Yellow); Urobilinogen Urine Norm (Negative); pH Urine 9 (5-7)
[2020-02-18 21:26] LABS: RBC Urine 0-4 /hpf (0-2); Squamous Epithelial Cell Urine 15-25 /hpf (0-5); WBC Urine 25-40 /hpf (0-5)
[2020-02-18 21:27] LABS: Add Urine Culture? No; Bacteria Urine 1+ /hpf; Mucus Urine 1+ /hpf
--- NOTE | 2020-02-18 21:36 | CTR_ITS ---
PROCEDURE INFORMATION: Exam: CT Abdomen And Pelvis With Contrast Exam date and time: 02/18/2020 9:40 PM Age: 24 years old Clinical indication: Nausea and vomiting; Patient HX: C/O cyclic vomiting syndrome; Additional info: Abd pain vomtiing TECHNIQUE: Imaging protocol: Computed tomography of the abdomen and pelvis with intravenous contrast. Radiation optimization: All CT scans at this facility use at least one of these dose optimization techniques: automated exposure control; mA and/or kV adjustment per patient size (includes targeted exams where dose is matched to clinical indication); or iterative reconstruction. Contrast material: OMNI 300; Contrast volume: 95 ml; Contrast route: INTRAVENOUS (IV); COMPARISON: CT abdomen pelvis w con* [id number] 09/07/2019 2:05 PM RADIATION DOSE METRICS: Total DLP (mGy-cm): 537.73 FINDINGS: Liver: Normal. No mass. Gallbladder and bile ducts: Normal. No calcified stones. No ductal dilation. Pancreas: Normal. No ductal dilation. Spleen: The spleen is mildly enlarged measuring 14.2 centimetres. Adrenals: Normal. No mass. Kidneys and ureters: Normal. No hydronephrosis. Stomach and bowel: The stomach is filled with fluid. Appendix: No evidence of appendicitis. Intraperitoneal space: There is a physiologic amount of free fluid in the pelvis. Vasculature: Unremarkable. No abdominal aortic aneurysm. Lymph nodes: Unremarkable. No enlarged lymph nodes. Urinary bladder: Unremarkable as visualized. 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: Unremarkable as visualized. Bones/joints: There are mild disc bulges at the L4-L5 and L5-S1 levels. Soft tissues: Unremarkable. CT/CT abdomen pelvis w con* [id number] IMPRESSION: 1. Mild splenomegaly. 2. There are mild disc bulges at the L4-L5 and L5-S1 levels. Radiation Dose CTDIVOL = (mGy): DLP = 537.73 (mGy-cm)
[2020-02-18] MEDS: iohexol 300 mg/mL 100 mL Btl IV (22:00)
[2020-02-18 22:07] VITALS: BP 108/54; PULSE 85; RESP 16; O2SAT 100
--- NOTE | 2020-02-18 22:31 | W.ED.NAVMDI ---
HPI - Nausea/Vomiting/Diarrhea General: Chief complaint: Nausea/Vomiting/Diarrhea Stated complaint: n/v Time Seen by Provider: 02/18/20 20:18 History of Present Illness: HPI Narrative: 24-year-old female with a history of cyclic vomiting syndrome. She presents with progressive vomiting starting today. She is had belly pain as well. She is also had some diarrhea which is different for her. There is no history of fever. No one else around her is been ill. MD elicited complaint: nausea, vomiting and diarrhea Pertinent past history: other Onset (ago): hour(s) Description of vomiting: watery and bilious Description of diarrhea: mucus and watery Associated nausea: Yes Associated abdominal pain: Yes Location of pain: Diffuse Radiation: diffuse Pain consistency: intermittent Severity: moderate Quality: cramping and stabbing Exacerbating factors: vomiting Relieving factors: none Associated symtoms: Reports decreased urine output and nausea; Denies anxiety, change in vision, chest pain, cough, dizziness, dysuria, headache(s), palpitations, rash or short of breath Review of Systems Const: Denies: fever(s) or chills Eyes: Denies: change in vision ENMT: Denies: odynophagia, swelling of lips/tongue, post nasal drip or sinus pain Card: Denies: chest pain, palpitations or irregular heart rhythm Resp: Denies: dyspnea, productive cough, non-productive cough or wheezing GI: Reports: nausea : Denies: dysuria Musc: Denies: neck pain or back pain Skin/Breast: Denies: rash or erythema Neuro: Denies: headache(s), dizziness or vertigo Psych: Denies: anxiety PFS ED PFSH: Medical History (Updated 02/18/20 @ 22:43 by Deshaun Earl DO) Cannabis hyperemesis syndrome concurrent with and due to cannabis abuse Surgical History (Updated 09/07/19 @ 14:07 by Mino Tate DO) S/P tonsillectomy and adenoidectomy Social History Smoking and tobacco status: never smoked Female 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 History: Date of last menstrual period: 02/18/20 Physical Exam Const: GENERAL APPEARANCE: ill appearing ORIENTATION/CONSCIOUSNESS: Yes oriented to person, Yes oriented to place and Yes oriented to time HENMT: COMMON NORMALS: normocephalic, external ears normal and Normal external nose present HEAD & SCALP: normocephalic FACE & SINUS: normal facial exam NOSE: Normal external nose present and No nasal discharge present EXTERNAL EAR: Yes external ears normal THROAT: posterior oropharynx normal; no peritonsillar mass Eye: COMMON NORMALS: Equal, round and reactive pupils present, EOMs intact bilaterally and conjunctivae normal EYELID: eyelids normal CONJUNCTIVA: Yes conjunctivae normal PUPIL: Yes Equal, round and reactive pupils present Neck/C-Spine: GENERAL: No tracheal deviation Chest: COMMONS NORMALS: normal inspection of the chest CHEST: No tenderness Resp: COMMON NORMALS: clear to auscultation bilaterally EFFORT & INSPECTION: No tachypneic, No respiratory distress, No retractions, No uses accessory muscles and No tracheal deviation AUSCULTATION: clear to auscultation bilaterally, no rhonchi, no wheezes and lung sounds not diminished Cardio: COMMON NORMALS: regular rate and regular rhythm RATE: regular rate RHYTHM: regular rhythm HEART SOUNDS: no murmurs PERIPHERAL PULSES: radial pulses present GI: INSPECTION: No abdominal distension AUSCULTATION: No Hyperactive bowel sounds present and No Hypoactive bowel sounds present PALPATION: Yes Tenderness to palpation present (GI) (diffuse), Yes Guarding due to palpation present (GI) and No Rigid due to palpation PERCUSSION: no dullness to percussion and no tympanic to percussion Neuro: SENSORIUM/ORIENTATION: Yes oriented to person, Yes oriented to place and Yes oriented to time Psych: COMMON NORMALS: mental status grossly normal Skin: COMMON NORMALS: no rashes or lesions noted GENERAL SKIN EXAM: no rashes or lesions noted Course Vital Signs: Vital signs: Vital Signs Temperature 99 F 02/18/20 20:08 Pulse Rate 92 02/18/20 22:52 Respiratory Rate 16 02/18/20 22:52 Blood Pressure 109/59 02/18/20 22:52 Pulse Oximetry 100 02/18/20 22:52 MDM - Nausea/Vomiting/Diarrhea MDM Narrative: Medical decision making narrative: 24-year-old female with cannabis related cyclic vomiting syndrome. She refuses to believe that her cyclic vomiting syndrome is related at all to her cannabis use or habit. She presents with dehydration with ketones in her urine, which is a bit contaminated. Her bicarbonate level is 20. She has not vomited at all since Haldol, Ativan, and Dilaudid. She has had 2 L of IV fluid. CT scan was performed due to profound leukocytosis, and this is not normal for her during her episodes. It is essentially negative. Lab Data: Labs: Lab Results 02/18/20 02/18/20 02/18/20 Range/Units 20:30 20:30 20:30 WBC 20.9 H (4.0-10.0) 10^3/ uL RBC 4.71 (4.1-5.3) 10^6/u L Hgb 14.0 (11.5-15.3) g/dL Hct 42.3 (37.0-47.0) % MCV 89.8 (81-99) fL MCH 29.7 (28.0-34.0) pg MCHC 33.1 (30.0-36.0) g/dL RDW 12.8 (12.1-15.1) % Plt Count 250 (130-400) 10^3/c mm MPV 11.1 H (7.4-10.4) fL Neut % (Auto) 92.7 % Lymph % (Auto) 2.9 % [facility] % (Auto) 3.4 % Eos % (Auto) 0.0 % Baso % (Auto) 0.1 % Neut # (Auto) 19.37 H (1.8-7.7) 10^3/u L Lymph # (Auto) 0.6 L (0.8-4.8) 10^3/u L [facility] # (Auto) 0.7 (0.2-0.9) 10^3/u L Eos # (Auto) 0.0 (0.0-0.8) 10^3/u L Baso # (Auto) 0.0 (0.0-0.1) 10^3/u L Nucleated RBC % (a uto) 0 % Nucleated RBCs # 0.0 /100WBC Sodium 137 (136-145) mmol/L Potassium 3.6 (3.5-5.1) mmol/L Chloride 101 (98-107) mmol/L Carbon Dioxide 20 L (22-29) mmol/L Anion Gap 19.6 H (5-19) BUN 9 (6-20) mg/dL Creatinine 0.8 (0.5-0.9) mg/dL GFR Calculation 89.7 L (90-130) mL/min Glucose 171 H (65-115) mg/dL Calculated Osmolal ity 287 (285-295) mOsm/k g Calcium 10.1 (8.5-10.5) mg/dL Total Bilirubin 1.1 (0.15-1.2) mg/dL AST 26 (0-32) U/L ALT 29 (0-33) U/L Alkaline Phosphata se 68 (35-105) IU/L C-Reactive Protein 7.1 H (0.0-4.9) mg/L Total Protein 7.7 (6.6-8.7) g/dL Albumin 5.1 (3.5-5.2) g/dL Globulin 2.6 (1.3-4.6) g/dL Lipase 9 L (13-60) U/L HCG, Qual Negative (Negative) Urine Color (Yellow) Urine Appearance (CLEAR) Urine pH (5-7) Ur Specific Gravit y (1.005-1.030) Urine Protein (Negative) Urine Glucose (UA) (Normal) Urine Ketones (Negative) Urine Blood (Negative) Urine Nitrate (Negative) Urine Bilirubin (Negative) Prot Sulfosalicyli c Acd (Negative) Urine Urobilinogen (Negative) mg/dL Ur Leukocyte Una ase (Negative) Urine RBC (0-2) /hpf Urine WBC (0-5) /hpf Ur Squamous Epith Cells (0-5) /hpf Amorphous Sediment Urine Bacteria (NONE) /hpf Urine Mucus /hpf 02/17/ Range/Units 21:05 WBC (4.0-10.0) 10^3/ uL RBC (4.1-5.3) 10^6/u L Hgb (11.5-15.3) g/dL Hct (37.0-47.0) % MCV (81-99) fL MCH (28.0-34.0) pg MCHC (30.0-36.0) g/dL RDW (12.1-15.1) % Plt Count (130-400) 10^3/c mm MPV (7.4-10.4) fL Neut % (Auto) % Lymph % (Auto) % [facility] % (Auto) % Eos % (Auto) % Baso % (Auto) % Neut # (Auto) (1.8-7.7) 10^3/u L Lymph # (Auto) (0.8-4.8) 10^3/u L [facility] # (Auto) (0.2-0.9) 10^3/u L Eos # (Auto) (0.0-0.8) 10^3/u L Baso # (Auto) (0.0-0.1) 10^3/u L Nucleated RBC % (a uto) % Nucleated RBCs # /100WBC Sodium (136-145) mmol/L Potassium (3.5-5.1) mmol/L Chloride (98-107) mmol/L Carbon Dioxide (22-29) mmol/L Anion Gap (5-19) BUN (6-20) mg/dL Creatinine (0.5-0.9) mg/dL GFR Calculation (90-130) mL/min Glucose (65-115) mg/dL Calculated Osmolal ity (285-295) mOsm/k g Calcium (8.5-10.5) mg/dL Total Bilirubin (0.15-1.2) mg/dL AST (0-32) U/L ALT (0-33) U/L Alkaline Phosphata se (35-105) IU/L C-Reactive Protein (0.0-4.9) mg/L Total Protein (6.6-8.7) g/dL Albumin (3.5-5.2) g/dL Globulin (1.3-4.6) g/dL Lipase (13-60) U/L HCG, Qual (Negative) Urine Color Yellow (Yellow) Urine Appearance Clear (CLEAR) Urine pH 9 H (5-7) Ur Specific Gravit y 1.010 (1.005-1.030) Urine Protein Neg (Negative) Urine Glucose (UA) Norm (Normal) Urine Ketones 2+ H (Negative) Urine Blood Neg (Negative) Urine Nitrate Negative (Negative) Urine Bilirubin Neg (Negative) Prot Sulfosalicyli c Acd Negative (Negative) Urine Urobilinogen Norm (Negative) mg/dL Ur Leukocyte Una ase Trace H (Negative) Urine RBC 0-4 H (0-2) /hpf Urine WBC 25-40 H (0-5) /hpf Ur Squamous Epith Cells 15-25 H (0-5) /hpf Amorphous Sediment Not Reportable Urine Bacteria 1+ H (NONE) /hpf Urine Mucus 1+ /hpf Discharge Plan Discharge Patient Disposition: Home Clinical Impression: Cyclical vomiting Condition: Stable Prescriptions: Continued chlorpromazine 25 mg tablet 25 mg PO TID Qty: 10 RF: 0 No Action amoxicillin 875 mg tablet 875 mg PO BID 10 Days Qty: 20 RF: 0 ondansetron HCl [Zofran] 4 mg tablet 4 mg PO Q6H PRN (Reason: nausea and vomiting) Qty: 15 RF: 0 promethazine 25 mg Tablet 25 mg PO PRN RF: 0 Ativan 1 mg tablet 1 mg PO Q8H PRN (Reason: dizziness) Qty: 14 RF: 0 Discharge Orders: Discharge Order (Routine); Ordered 02/18/20 Ordered By: Deshaun Earl Referrals: Aureliano Rodas MD [Primary Care Provider] - 4-7 days Discharge Diet: Clear Liquid Discharge Activity: Increase activity as tolerated Patient Instructions: Vomiting - Adult Activity Restrictions/Additional Instructions: Take the prescribed medication 3 times daily, until you have not vomited in 24 hours, then you may use as needed. The medication will make you tired. Discharge Date/Time: 02/18/20 22:53 Coding Level of Care Code ED Bilingual Office Assistant for Judyg Fwd Exam Comprehensive
[2020-02-18 22:52] VITALS: BP 109/59; PULSE 92; RESP 16; O2SAT 100
== END 2020-02-18 22:53 | disposition home or self-care (01) ==
PROVIDERS: Emergency Provider Emergency Medicine; PCP Family Medicine
DX: R11.15 Cyclical vomiting syndrome unrelated to migraine (principal)
CPT/HCPCS: 12345; 74177; 80053; 81001; 83690; 84703; 85025; 86140; 96361; 96374; 96375; 99283; 99284; J1170; J1630; J2060; J2405; J7030; Q9967

== ENCOUNTER 2020-02-21 07:42 | Emergency (ER) | payer MEDICAID, SELFPAY ==
[2020-02-21 07:43] VITALS: BP 118/72; PULSE 118; RESP 20; TEMP 36.9; O2SAT 100; BMI 21.4
--- NOTE | 2020-02-21 07:54 | W.ED.NAVMDI ---
HPI - Nausea/Vomiting/Diarrhea General: Chief complaint: Nausea/Vomiting/Diarrhea Stated complaint: Throwing up Time Seen by Provider: 02/21/20 07:49 History of Present Illness: HPI Narrative: 24-year-old female presents emergency room with recurrent nausea and vomiting. She has been found to have hyperemesis cannabinoid syndrome she refuses to accept the diagnosis according to the notes from previous visit. Reviewing the chart she has had multiple different medications to treat this across the several visits of this year. She has had multiple CTs this past year all of which have been negative. She does continue to smoke marijuana on a regular basis she feels it actually helps her symptoms and does not recognize it contributes to them. MD elicited complaint: nausea and vomiting Pertinent past history: other (Hyperemesis cannabinoid syndrome) Onset (ago): day(s) (3) Description of vomiting: bilious Associated nausea: Yes Associated abdominal pain: Yes Location of pain: Diffuse Radiation: diffuse Pain consistency: constant Severity: severe Quality: cramping Exacerbating factors: eating and vomiting Relieving factors: none Context: other (Daily cannabis use) Associated symtoms: Reports anorexia and nausea; Denies anxiety, bloating, change in vision, chest pain, cough, diaphoresis, decreased urine output, dizziness, dysuria, epistaxis, fatigue, fecal incontinence, fevers/chills, headache(s), malaise, myalgias, numbness, palpitations, rash, short of breath, syncope, tenesmus, tinnitus or weakness Treatment prior to arrival: other (Description antiemetics) Review of Systems Const: Denies: fatigue, malaise or diaphoresis Eyes: Denies: change in vision ENMT: Denies: tinnitus or epistaxis Card: Denies: chest pain, palpitations or syncope Resp: Denies: dyspnea, productive cough or non-productive cough GI: Reports: nausea; Denies: bloating or fecal incontinence : Denies: dysuria Skin/Breast: Denies: rash or pruritus Neuro: Denies: headache(s) or dizziness Psych: Denies: anxiety PFSH ED PFSH: Medical History Cannabis hyperemesis syndrome concurrent with and due to cannabis abuse Surgical History S/P tonsillectomy and adenoidectomy Social History Smoking and tobacco status: never smoked Substance/Drug Use: current Substance/Drug use frequency: daily Substance/Drug use type: Marijuana Female 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 History: Date of last menstrual period: 02/13/20 Physical Exam Const: COMMON NORMALS: no acute distress GENERAL APPEARANCE: cooperative and comfortable ORIENTATION/CONSCIOUSNESS: Yes awake, Yes oriented to person, Yes oriented to place and Yes oriented to time HENMT: COMMON NORMALS: normocephalic, atraumatic, hearing grossly normal bilaterally, external ears normal, EAC's normal, TM's normal bilaterally, Normal nasal mucous membranes and turbinates present, moist oral mucous membranes and oropharynx normal HEAD & SCALP: normocephalic and atraumatic NOSE: Normal nasal mucous membranes and turbinates present EXTERNAL EAR: Yes external ears normal EXTERNAL AUDITORY CANAL: EAC's normal TYMPANIC MEMBRANE: TM's normal bilaterally Eye: COMMON NORMALS: Equal, round and reactive pupils present, EOMs intact bilaterally, conjunctivae normal and no scleral icterus CONJUNCTIVA: Yes conjunctivae normal PUPIL: Yes Equal, round and reactive pupils present Neck/C-Spine: COMMON NORMALS: full ROM, no lymphadenopathy, supple and no JVD Lymph: LYMPHATIC: no lymphadenopathy noted and no lymphedema noted Resp: COMMON NORMALS: normal respiratory effort, No retractions, No use of accessory muscles and clear to auscultation bilaterally AUSCULTATION: clear to auscultation bilaterally Cardio: COMMON NORMALS: no JVD, regular rate, regular rhythm and No murmurs present (Cardio) RATE: regular rate RHYTHM: regular rhythm GI: AUSCULTATION: Yes Hyperactive bowel sounds present PALPATION: Yes Tenderness to palpation present (GI) (diffuse) and No Guarding due to palpation present (GI) Extremity: COMMON NORMALS: normal to inspection, capillary refill normal, no clubbing, cyanosis or edema, no calf tenderness and no pedal edema Neuro: SENSORIUM/ORIENTATION: Yes oriented to person, Yes oriented to place and Yes oriented to time Skin: COMMON NORMALS: no rashes or lesions noted GENERAL SKIN EXAM: no rashes or lesions noted Course Vital Signs: Vital signs: Vital Signs Temperature 98.4 F 02/21/20 07:43 Pulse Rate 87 02/21/20 10:58 Respiratory Rate 22 H 02/21/20 10:58 Blood Pressure 124/69 02/21/20 10:58 Pulse Oximetry 100 02/21/20 07:43 MDM - Nausea/Vomiting/Diarrhea MDM Narrative: Medical decision making narrative: Patient is feeling better discharge home with medications as below for her hyperemesis and her cystitis. Encouraged abstinence from cannabis follow-up with primary care also discussed using hot showers or capsaicin cream applied to the abdominal wall. Lab Data: Labs: Lab Results 02/21/20 02/21/20 02/21/20 Range/Units 08:05 08:05 08:30 WBC 7.9 (4.0-10.0) 10^3/ uL RBC 4.28 (4.1-5.3) 10^6/u L Hgb 12.9 (11.5-15.3) g/dL Hct 38.3 (37.0-47.0) % MCV 89.5 (81-99) fL MCH 30.1 (28.0-34.0) pg MCHC 33.7 (30.0-36.0) g/dL RDW 12.8 (12.1-15.1) % Plt Count 189 (130-400) 10^3/c mm MPV 11.0 H (7.4-10.4) fL Neut % (Auto) 75.3 % Lymph % (Auto) 17.3 % [place] % (Auto) 6.5 % Eos % (Auto) 0.3 % Baso % (Auto) 0.3 % Neut # (Auto) 5.94 (1.8-7.7) 10^3/u L Lymph # (Auto) 1.4 (0.8-4.8) 10^3/u L [place] # (Auto) 0.5 (0.2-0.9) 10^3/u L Eos # (Auto) 0.0 (0.0-0.8) 10^3/u L Baso # (Auto) 0.0 (0.0-0.1) 10^3/u L Nucleated RBC % (a uto) 0 % Nucleated RBCs # 0.0 /100WBC Sodium 142 (136-145) mmol/L Potassium 3.4 L (3.5-5.1) mmol/L Chloride 106 (98-107) mmol/L Carbon Dioxide 23 (22-29) mmol/L Anion Gap 16.4 (5-19) BUN 7 (6-20) mg/dL Creatinine 0.7 (0.5-0.9) mg/dL GFR Calculation 104.6 (90-130) mL/min Glucose 125 H (65-115) mg/dL Calculated Osmolal ity 293 (285-295) mOsm/k g Calcium 9.4 (8.5-10.5) mg/dL Total Bilirubin 0.4 (0.15-1.2) mg/dL AST 17 (0-32) U/L ALT 22 (0-33) U/L Alkaline Phosphata se 61 (35-105) IU/L Total Protein 7.1 (6.6-8.7) g/dL Albumin 4.3 (3.5-5.2) g/dL Globulin 2.8 (1.3-4.6) g/dL Urine Color Yellow (Yellow) Urine Appearance Cloudy (CLEAR) Urine pH 5 (5-7) Ur Specific Gravit y 1.025 (1.005-1.030) Urine Protein 1+ H (Negative) Urine Glucose (UA) Norm (Normal) Urine Ketones 2+ H (Negative) Urine Blood 2+ H (Negative) Urine Nitrate Negative (Negative) Urine Bilirubin 1+ H (Negative) Urine Urobilinogen 1 H (Negative) mg/dL Ur Leukocyte Una ase 2+ H (Negative) Urine RBC 10-15 H (0-2) /hpf Urine WBC 40-55 H (0-5) /hpf Ur Squamous Epith Cells 5-10 H (0-5) /hpf Amorphous Sediment Not Reportable Urine Bacteria Trace (NONE) /hpf Urine Mucus Trace /hpf Serum Ketones Negative (Negative) Discharge Plan Discharge Patient Disposition: Home Clinical Impression: Cannabinoid hyperemesis syndrome, Cystitis Condition: Stable Prescriptions: New Ativan 1 mg tablet 1 mg PO Q6H PRN (Reason: nausea and vomiting) Qty: 10 RF: 0 promethazine 25 mg tablet 25 mg PO Q6H PRN (Reason: nausea and vomiting) Qty: 14 RF: 0 Macrodantin 100 mg capsule 100 mg PO BID 7 Days Qty: 14 RF: 0 Discontinued amoxicillin 875 mg tablet 875 mg PO BID 10 Days Qty: 20 RF: 0 No Action chlorpromazine 25 mg tablet 25 mg PO TID Qty: 10 RF: 0 ondansetron HCl [Zofran] 4 mg tablet 4 mg PO Q6H PRN (Reason: nausea and vomiting) Qty: 15 RF: 0 promethazine 25 mg Tablet 25 mg PO PRN RF: 0 Ativan 1 mg tablet 1 mg PO Q8H PRN (Reason: dizziness) Qty: 14 RF: 0 Discharge Orders: Discharge Order (Routine); Ordered 02/21/20 Ordered By: Mino Tate Referrals: Aureliano Rodas MD [Primary Care Provider] - Discharge Diet: Usual diet Discharge Activity: Increase activity as tolerated Activity Restrictions/Additional Instructions: Abstain from cannabis use. You were given a dose of IV antibiotics today in the emergency room, start oral antibiotics tomorrow. Clear liquid diet for 24 to 48 hours and advance as tolerated. Use as needed medications prescribed for nausea. Discharge Date/Time: 02/21/20 10:57 Coding Level of Care Code ED Farm Demonstrator for Judyg Fwd Exam Comprehensive
[2020-02-21 08:17] LABS: Basophils % 0.3 %; Eosinophils % 0.3 %; Hematocrit 38.3 % (37.0-47.0); Hemoglobin 12.9 g/dL (11.5-15.3); Lymphocytes # 1.4 10^3/uL (0.8-4.8); Lymphocytes % 17.3 %; Mean Corpuscular HGB Conc 33.7 g/dL (30.0-36.0); Mean Corpuscular Hemoglobin 30.1 pg (28.0-34.0); Mean Corpuscular Volume 89.5 fL (81-99); Monocytes # 0.5 10^3/uL (0.2-0.9); Monocytes % 6.5 %; Neutrophils # 5.94 10^3/uL (1.8-7.7); Neutrophils % 75.3 %; Nucleated Red Blood Cells % 0 %; Platelet Count 189 10^3/cmm (130-400); Red Blood Count 4.28 10^6/uL (4.1-5.3); Red Cell Distribution Width 12.8 % (12.1-15.1); White Blood Count 7.9 10^3/uL (4.0-10.0)
[2020-02-21] MEDS: sodium chloride 0.9% 1,000 ML 999 ML IV ×2 (08:20→09:31)
[2020-02-21] MEDS: ondansetron 2 mg/ML SDV 2 mL 4 MG IVP (08:20)
[2020-02-21] MEDS: LORazepam 2 mg/mL INJ 1 mL IVP (08:24)
[2020-02-21] MEDS: haloperidol inj 5 mg/mL INJ 1 mL IVP (08:27)
[2020-02-21 08:32] LABS: Ketone (Acetest) Serum Negative (Negative)
[2020-02-21 08:42] LABS: Alanine Aminotransferase 22 U/L (0-33); Albumin Level 4.3 g/dL (3.5-5.2); Alkaline Phosphatase 61 IU/L (35-105); Anion Gap 16.4 (5-19); Aspartate Amino Transferase 17 U/L (0-32); Blood Urea Nitrogen 7 mg/dL (6-20); Calcium 9.4 mg/dL (8.5-10.5); Carbon Dioxide 23 mmol/L (22-29); Chloride 106 mmol/L (98-107); Globulin 2.8 g/dL (1.3-4.6); Glomerular Filtration Rate 104.6 mL/min (90-130); Glucose 125 mg/dL (65-115); Osmolality Calculated 293 mOsm/kg (285-295); Potassium 3.4 mmol/L (3.5-5.1); Sodium 142 mmol/L (136-145); Total Bilirubin 0.4 mg/dL (0.15-1.2); Total Protein 7.1 g/dL (6.6-8.7)
[2020-02-21 08:49] VITALS: BP 125/76; PULSE 97; RESP 20
[2020-02-21 08:58] LABS: Glucose Urine UA Norm (Normal); Protein Urine 1+ (Negative); Specific Gravity, Urine 1.025 (1.005-1.030); Urine Appearance Cloudy (CLEAR); Urine Color Yellow (Yellow); pH Urine 5 (5-7)
[2020-02-21 08:59] LABS: Add Urine Microscopic? YES; Bilirubin Urine 1+ (Negative); Blood Urine 2+ (Negative); Ketones Urine 2+ (Negative); Leukocyte Esterase Urine 2+ (Negative); Nitrate Urine Negative (Negative); Urobilinogen Urine 1 mg/dL (Negative)
[2020-02-21 09:07] LABS: Add Urine Culture? Yes; Bacteria Urine TRACE /hpf; Mucus Urine TRACE /hpf; WBC Urine 40-55 /hpf (0-5)
[2020-02-21] MEDS: cefTRIAXone 1,000 MG in sodium chloride 0.9% (plus) 50 ML 100 MG IV (09:31)
[2020-02-21 09:38] VITALS: BP 120/72; PULSE 73; RESP 23
[2020-02-21 10:58] VITALS: BP 124/69; PULSE 87; RESP 22
== END 2020-02-21 10:57 | disposition home or self-care (01) ==
PROVIDERS: Emergency Provider Family Medicine; PCP Family Medicine
DX: R11.2 Nausea with vomiting, unspecified (principal); F12.90 Cannabis use, unspecified, uncomplicated; N30.90 Cystitis, unspecified without hematuria
CPT/HCPCS: 12345; 80053; 81001; 82009; 85025; 87086; 96361; 96365; 96375; 99283; 99284; J0696; J1630; J2060; J2405; J7030

== ENCOUNTER 2020-02-23 09:11 | Emergency (ER) | payer MEDICAID, SELFPAY ==
[2020-02-23 09:20] VITALS: BP 103/78; PULSE 72; RESP 16; TEMP 36.5; O2SAT 99; BMI 21.4
--- NOTE | 2020-02-23 09:26 | ED_ITS ---
HPI - Abdominal Pain General: Chief Complaint: Nausea/Vomiting/Diarrhea Stated Complaint: vomiting 4days Time Seen by Provider: 02/23/20 09:18 Source: patient Mode of arrival: ambulatory Limitations: no limitations History of Present Illness: HPI narrative: Deven is a nice 24-year-old female who comes in complaining of 4 days of nausea and vomiting. The patient states that she has been diagnosis with cannabis hyperemesis/cyclic vomiting syndrome. She states she does not believe this diagnosis as every time she smokes marijuana her nausea temporarily gets better. She cannot stop smoking marijuana. She states that what ever she was given here 4 days ago helped her the most she lists Haldol, Dilaudid and Ativan. Patient states she has abdominal pain described as a soreness from so much retching. Patient denies any blood in her vomit or blood in her stools. Patient states she has had loose stools but not necessarily valeria diarrhea. She not had a fever. She denies any chest pain or shortness of breath. She denies any headache. Patient states she has had the symptoms numerous times and just wants to get relief. She states she is taken promethazine and Zofran prior to arrival here without any improvement in her symptoms. Associated Symptoms: Reports diarrhea, nausea and vomiting; Denies chills, coffee ground emesis, constipation, GI cramping, dysuria, fever(s), heartburn, hematochezia, hematuria, hematemesis, melena and syncope Related Data: Date of Last Menstrual Period: 02/13/20 Review of Systems Const: Denies: fever(s), chills, body aches, fatigue, malaise or diaphoresis Eyes: Denies: change in vision, blurry vision, photophobia, eye discomfort, ey e discharge, eye redness or yellow eyes ENMT: Denies: throat pain, odynophagia, hoarseness, swelling of lips/tongue, ear or mastoid pain, ear discharge, change in hearing or nasal discharge Card: Denies: chest pain, palpitations, irregular heart rhythm, edema, lightheadedness, syncope, pre-syncope, dyspnea on exertion or orthopnea Resp: Denies: dyspnea, productive cough, non-productive cough, wheezing, hemoptysis or chest congestion GI: Reports: abdominal pain, nausea, vomiting and diarrhea; Denies: hematemesis, coffee ground emesis, heartburn, constipation, GI cramping, hematochezia or melena : Denies: flank pain, dysuria, urinary frequency, urinary urgency or hematuria Musc: Denies: neck pain, back pain, extremity pain, extremity swelling, joint pain, joint swelling, joint redness, joint warmth or joint stiffness Skin/Breast: Denies: rash, pruritus, erythema, skin pain or skin tenderness Neuro: Denies: headache(s), numbness in extremities, weakness in extremities, sensory changes, lack of coordination, difficulty walking, dizziness, vertigo, confusion, Slurred speech present or seizure-like activity Woo/Lymph: Denies: easy bruising, easy bleeding, petechiae, purpura or enlarged lymph nodes All/Imm: Denies: urticaria, throat swelling, tongue swelling, facial swelling or acute wheezing PFSH ED PFSH: Medical History Cannabis hyperemesis syndrome concurrent with and due to cannabis abuse Surgical History S/P tonsillectomy and adenoidectomy Social History Smoking and tobacco status: never smoked Female 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 History: Date of last menstrual period: 02/13/20 Physical Exam Const: COMMON NORMALS: no acute distress, patient oriented x3, no limitations and alert GENERAL APPEARANCE: cooperative HENMT: COMMON NORMALS: normocephalic, atraumatic, external ears normal, EAC's normal and Normal external nose present HEAD & SCALP: normal to inspection, normocephalic and atraumatic FACE & SINUS: normal facial exam and face symmetric NOSE: Normal external nose present and Normal nares present EXTERNAL EAR: Yes external ears normal EXTERNAL AUDITORY CANAL: EAC's normal MOUTH: Normal oral and palatal mucosa present, lip normal and tongue normal Eye: COMMON NORMALS: Equal, round and reactive pupils present and conjunctivae normal GENERAL EYE: appearance normal, both eyes and all related structures ALIGNMENT: Yes alignment normal PERIORBITAL: periorbital findings normal EYELID: eyelids normal CONJUNCTIVA: Yes conjunctivae normal SCLERA: sclerae normal PUPIL: Yes Equal, round and reactive pupils present Neck/C-Spine: COMMON NORMALS: full ROM, no lymphadenopathy, supple, no meningeal signs and no JVD GENERAL: Yes normal visual inspection and Yes trachea midline Chest: COMMONS NORMALS: normal inspection of the chest and normal palpation of entire chest wall Resp: COMMON NORMALS: normal respiratory effort, No retractions, No use of accessory muscles and clear to auscultation bilaterally EFFORT & INSPECTION: Yes able to speak in complete sentences and Yes symmetric chest movement AUSCULTATION: clear to auscultation bilaterally, no crackles, no rales, no rhonchi and no wheezes Cardio: COMMON NORMALS: no JVD, regular rate, regular rhythm, S1 normal heart sound present and S2 normal heart sound present RATE: regular rate RHYTHM: regular rhythm HEART SOUNDS: S1 normal heart sound present, S2 normal heart sound present, no click, no gallops, no murmurs and no rubs GI: COMMON NORMALS: Soft to palpation and No hepatosplenomegaly present PALPATION: Yes Soft to palpation, No Tenderness to palpation present (GI), No Guarding due to palpation present (GI), No Rigid due to palpation, Yes No hepatosplenomegaly present, No Hernia present, No Palpable mass present and No Pulsatile mass present : COMMON NORMALS: Yes no CVA tenderness BLADDER/KIDNEY EXAM: Yes no CVA tenderness EXTERNAL FEMALE EXAM: No Hernia present Back/Pelvis: COMMON NORMALS: no CVA tenderness, thoracic and lumbar spine normal to inspection, no thoracic nor lumbar tenderness and thoraco-lumbar ROM normal Extremity: COMMON NORMALS: normal to inspection, full ROM, capillary refill no rmal, no joint enlargement, no clubbing, cyanosis or edema and no calf tenderness Neuro: COMMON NORMALS: patient oriented x3, CN's II-XII intact bilaterally, moves all extremities, no focal motor deficits and no sensory deficits noted SENSORIUM/ORIENTATION: Yes alert MENINGEAL SIGNS: Yes no meningeal signs SPEECH: speech normal Psych: COMMON NORMALS: mental status grossly normal, Normal thought process present, cooperative, normal affect, speech normal and activity/motor behavior normal SPEECH: Yes normal speech THOUGHT PROCESS: Normal thought process present Skin: COMMON NORMALS: no rashes or lesions noted, turgor normal, no jaundice, no petechiae and no mottling GENERAL SKIN EXAM: no rashes or lesions noted and turgor normal Course Vital Signs: Vital signs: Vital Signs Temperature 97.7 F 02/23/20 09:20 Pulse Rate 76 02/23/20 13:01 Respiratory Rate 16 02/23/20 13:01 Blood Pressure 122/83 02/23/20 13:01 Pulse Oximetry 99 02/23/20 13:01 MDM - Abdominal Pain MDM Narrative: Medical decision making narrative: 1141 -patient is feeling much better at this time. She is not vomited anything up since she is been here. She is been able to keep down the oral potassium I have given her. Patient states she is feeling much better. I again counseled her on the marijuana use and she verbalizes her understanding. I do not believe she is going to stop smoking marijuana but is just telling me what I want to hear. On repeat examination I see no evidence of acute appendicitis or other acute intra- abdominal catastrophe. Patient does not appear to have any tenderness with palpation at this time. Patient is afebrile has no other complaints. She agrees to return should her symptoms change or worsen but at this time she is in sistent upon discharge. She does agree to stay until her potassium is finished infusing. Differential Diagnosis: Differential diagnosis abdominal pain: Likely abdominal pain, acute appendicitis, calculus of kidney, constipation, diverticulitis, gastroenteritis, pancreatitis and small bowel obstruction Lab Data: Attestation: I reviewed the patient's lab results. Labs: Lab Results 02/23/20 02/23/20 02/23/20 Range/Units 09:45 09:45 09:45 WBC 5.4 (4.0-10.0) 10^3/ uL RBC 4.39 (4.1-5.3) 10^6/u L Hgb 12.9 (11.5-15.3) g/dL Hct 38.6 (37.0-47.0) % MCV 87.9 (81-99) fL MCH 29.4 (28.0-34.0) pg MCHC 33.4 (30.0-36.0) g/dL RDW 12.5 (12.1-15.1) % Plt Count 259 (130-400) 10^3/c mm MPV 10.6 H (7.4-10.4) fL Neut % (Auto) 75.9 % Lymph % (Auto) 20.0 % [place] % (Auto) 3.5 % Eos % (Auto) 0.0 % Baso % (Auto) 0.4 % Neut # (Auto) 4.07 (1.8-7.7) 10^3/u L Lymph # (Auto) 1.1 (0.8-4.8) 10^3/u L [place] # (Auto) 0.2 (0.2-0.9) 10^3/u L Eos # (Auto) 0.0 (0.0-0.8) 10^3/u L Baso # (Auto) 0.0 (0.0-0.1) 10^3/u L Nucleated RBC % (a uto) 0 % Nucleated RBCs # 0.0 /100WBC Sodium 138 (136-145) mmol/L Potassium 3.3 L (3.5-5.1) mmol/L Chloride 101 (98-107) mmol/L Carbon Dioxide 26 (22-29) mmol/L Anion Gap 14.3 (5-19) BUN 5 L (6-20) mg/dL Creatinine 0.7 (0.5-0.9) mg/dL GFR Calculation 104.6 (90-130) mL/min Glucose 121 H (65-115) mg/dL Calculated Osmolal ity 285 (285-295) mOsm/k g Calcium 9.5 (8.5-10.5) mg/dL Magnesium 1.9 (1.7-2.3) mg/dL Total Bilirubin 0.5 (0.15-1.2) mg/dL AST 24 (0-32) U/L ALT 34 H (0-33) U/L Alkaline Phosphata se 66 (35-105) IU/L Creatine Kinase 64 (26-192) U/L Total Protein 7.3 (6.6-8.7) g/dL Albumin 4.4 (3.5-5.2) g/dL Globulin 2.9 (1.3-4.6) g/dL Lipase 15 (13-60) U/L HCG, Qual Negative (Negative) Urine Color (Yellow) Urine Appearance (CLEAR) Urine pH (5-7) Ur Specific Gravit y (1.005-1.030) Urine Protein (Negative) Urine Glucose (UA) (Normal) Urine Ketones (Negative) Urine Blood (Negative) Urine Nitrate (Negative) Urine Bilirubin (Negative) Urine Urobilinogen (Negative) mg/dL Ur Leukocyte Una ase (Negative) 02/23/20 Range/Units 10:00 WBC (4.0-10.0) 10^3/ uL RBC (4.1-5.3) 10^6/u L Hgb (11.5-15.3) g/dL Hct (37.0-47.0) % MCV (81-99) fL MCH (28.0-34.0) pg MCHC (30.0-36.0) g/dL RDW (12.1-15.1) % Plt Count (130-400) 10^3/c mm MPV (7.4-10.4) fL Neut % (Auto) % Lymph % (Auto) % [place] % (Auto) % Eos % (Auto) % Baso % (Auto) % Neut # (Auto) (1.8-7.7) 10^3/u L Lymph # (Auto) (0.8-4.8) 10^3/u L [place] # (Auto) (0.2-0.9) 10^3/u L Eos # (Auto) (0.0-0.8) 10^3/u L Baso # (Auto) (0.0-0.1) 10^3/u L Nucleated RBC % (a uto) % Nucleated RBCs # /100WBC Sodium (136-145) mmol/L Potassium (3.5-5.1) mmol/L Chloride (98-107) mmol/L Carbon Dioxide (22-29) mmol/L Anion Gap (5-19) BUN (6-20) mg/dL Creatinine (0.5-0.9) mg/dL GFR Calculation (90-130) mL/min Glucose (65-115) mg/dL Calculated Osmolal ity (285-295) mOsm/k g Calcium (8.5-10.5) mg/dL Magnesium (1.7-2.3) mg/dL Total Bilirubin (0.15-1.2) mg/dL AST (0-32) U/L ALT (0-33) U/L Alkaline Phosphata se (35-105) IU/L Creatine Kinase (26-192) U/L Total Protein (6.6-8.7) g/dL Albumin (3.5-5.2) g/dL Globulin (1.3-4.6) g/dL Lipase (13-60) U/L HCG, Qual (Negative) Urine Color Dark yellow (Yellow) Urine Appearance Clear (CLEAR) Urine pH 5.0 (5-7) Ur Specific Gravit y 1.020 (1.005-1.030) Urine Protein Neg (Negative) Urine Glucose (UA) Norm (Normal) Urine Ketones 2+ H (Negative) Urine Blood Neg (Negative) Urine Nitrate Negative (Negative) Urine Bilirubin 1+ H (Negative) Urine Urobilinogen 1 H (Negative) mg/dL Ur Leukocyte Una ase Negative (Negative) EKG Data ^: EKG 1: Attestation: I personally reviewed and interpreted this EKG as follows: EKG interpretation date: 02/23/20 EKG interpretation time: : Interpretation: Normal sinus rhythm with sinus arrhythmia at 62 beats a minute, normal intervals, no blocks, normal inverted juvenile T waves versus T wave inversion from hypokalemia. Discharge Plan Discharge Patient Disposition: Home Clinical Impression: Cyclical vomiting, Cannabinoid hyperemesis syndrome Condition: Stable Prescriptions: New Reglan 10 mg tablet 10 mg PO Q6H PRN (Reason: nausea and vomiting) Qty: 20 RF: 0 No Action chlorpromazine 25 mg tablet 25 mg PO TID Qty: 10 RF: 0 ondansetron HCl [Zofran] 4 mg tablet 4 mg PO Q6H PRN (Reason: nausea and vomiting) Qty: 15 RF: 0 promethazine 25 mg Tablet 25 mg PO PRN RF: 0 Ativan 1 mg tablet 1 mg PO Q8H PRN (Reason: dizziness) Qty: 14 RF: 0 Ativan 1 mg tablet 1 mg PO Q6H PRN (Reason: nausea and vomiting) Qty: 10 RF: 0 promethazine 25 mg tablet 25 mg PO Q6H PRN (Reason: nausea and vomiting) Qty: 14 RF: 0 Macrodantin 100 mg capsule 100 mg PO BID 7 Days Qty: 14 RF: 0 Discharge Orders: Discharge Order (Routine); Ordered 02/23/20 Ordered By: Tania Mackey Referrals: Aurelaino Rodas MD [Primary Care Provider] - 1-3 days Discharge Diet: Advance as tolerated and Clear Liquid Discharge Activity: Increase activity as tolerated Patient Instructions: Acute Nausea and Vomiting (ED) Activity Restrictions/Additional Instructions: Please return to the ER immediately for any of the signs or symptoms listed on your discharge instruction sheets, worsening/changing of your symptoms, you are not getting better as quickly as expected, or for ANY other cause or concerns. Avoid any type of marijuana use as this is going to perpetuate your nausea and vomiting syndrome. Be certain to follow-up with your regular doctor for definitive care. Discharge Date/Time: 02/23/20 13:05 Coding Level of Care Code ED Parts Counter Representative for Carlos Fwd Exam Comprehensive
[2020-02-23] MEDS: metoclopramide 5 mg/mL SDV 2 mL 10 MG IV (09:40)
[2020-02-23] MEDS: LORazepam 2 mg/mL INJ 1 mL 1 MG IVP (09:40)
[2020-02-23] MEDS: diphenhydrAMINE 50 mg/mL SDV 1mL 25 MG IVP (09:41)
[2020-02-23 09:50] LABS: Basophils % 0.4 %; Hematocrit 38.6 % (37.0-47.0); Hemoglobin 12.9 g/dL (11.5-15.3); Lymphocytes # 1.1 10^3/uL (0.8-4.8); Mean Corpuscular HGB Conc 33.4 g/dL (30.0-36.0); Mean Corpuscular Hemoglobin 29.4 pg (28.0-34.0); Mean Corpuscular Volume 87.9 fL (81-99); Mean Platelet Volume 10.6 fL (7.4-10.4); Monocytes # 0.2 10^3/uL (0.2-0.9); Monocytes % 3.5 %; Neutrophils # 4.07 10^3/uL (1.8-7.7); Neutrophils % 75.9 %; Nucleated Red Blood Cells % 0 %; Platelet Count 259 10^3/cmm (130-400); Red Blood Count 4.39 10^6/uL (4.1-5.3); Red Cell Distribution Width 12.5 % (12.1-15.1); White Blood Count 5.4 10^3/uL (4.0-10.0)
[2020-02-23] MEDS: sodium chloride 0.9% 1,000 ML 999 ML IV ×2 (09:54→11:17)
[2020-02-23 10:03] LABS: HCG, Serum Qual Negative (Negative)
[2020-02-23 10:09] LABS: Alanine Aminotransferase 34 U/L (0-33); Albumin Level 4.4 g/dL (3.5-5.2); Alkaline Phosphatase 66 IU/L (35-105); Anion Gap 14.3 (5-19); Aspartate Amino Transferase 24 U/L (0-32); Blood Urea Nitrogen 5 mg/dL (6-20); Calcium 9.5 mg/dL (8.5-10.5); Carbon Dioxide 26 mmol/L (22-29); Chloride 101 mmol/L (98-107); Creatine Phosphokinase 64 U/L (26-192); Globulin 2.9 g/dL (1.3-4.6); Glomerular Filtration Rate 104.6 mL/min (90-130); Glucose 121 mg/dL (65-115); Lipase 15 U/L (13-60); Magnesium 1.9 mg/dL (1.7-2.3); Osmolality Calculated 285 mOsm/kg (285-295); Potassium 3.3 mmol/L (3.5-5.1); Sodium 138 mmol/L (136-145); Total Bilirubin 0.5 mg/dL (0.15-1.2); Total Protein 7.3 g/dL (6.6-8.7)
[2020-02-23] MEDS: potassium chloride premix 100 ML 50 MEQ IV (10:37)
[2020-02-23 10:39] LABS: Add Urine Microscopic? NO
[2020-02-23] MEDS: haloperidol inj 5 mg/mL INJ 1 mL 2 MG IM (11:02)
[2020-02-23 11:09] LABS: Bilirubin Urine 1+ (Negative); Blood Urine Neg (Negative); Glucose Urine UA Norm (Normal); Ketones Urine 2+ (Negative); Leukocyte Esterase Urine Negative (Negative); Nitrate Urine Negative (Negative); Protein Urine Neg (Negative); Urine Appearance Clear (CLEAR); Urine Color Dark Yellow (Yellow); Urobilinogen Urine 1 mg/dL (Negative)
[2020-02-23] MEDS: potassium chloride ER 10 mEq Tablet 40 MEQ PO (12:20)
[2020-02-23 13:01] VITALS: BP 122/83; PULSE 76; RESP 16; O2SAT 99
--- NOTE | 2020-02-23 14:37 | ECG_ITS ---
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 Measurements Intervals [place] Rate: 62 P: 46 OR: 122 QRS: 69 QRSD: 94 T: 61 QT: 424 QTc: 432 Interpretive Statements SINUS RHYTHM WITH SINUS ARRHYTHMIA MODERATE T-WAVE ABNORMALITY, CONSIDER ANTERIOR ISCHEMIA [-0.1+ mV T WAVE IN V3/V4] Compared to ECG 03/27/2019 05:19:32 T-wave abnormality now present Possible ischemia now present Electronically Signed On 02-23-2020 18:30:21 CDT by Epifanio Israel M.D. [id number]
== END 2020-02-23 13:05 | disposition home or self-care (01) ==
PROVIDERS: Emergency Provider Emergency Medicine; PCP Family Medicine
DX: R11.2 Nausea with vomiting, unspecified (principal); F12.90 Cannabis use, unspecified, uncomplicated; R11.15 Cyclical vomiting syndrome unrelated to migraine
CPT/HCPCS: 12345; 80053; 81003; 82550; 83690; 83735; 84703; 85025; 93005; 96365; 96366; 96372; 96375; 99283; 99284; J0131; J1200; J1630; J2060; J2765; J3480; J7030

== ENCOUNTER 2020-02-26 04:33 | Observation (INO) | payer MEDICAID, SELFPAY ==
[2020-02-26] VITALS (10 sets, daily range): BP systolic 101–127; BP diastolic 50–82; PULSE 57–78; RESP 15–22; TEMP 36.5–37.4; O2SAT 94–100; BMI 21.2
[2020-02-26] MEDS: haloperidol inj 5 mg/mL INJ 1 mL 3 MG IVP (05:08)
[2020-02-26] MEDS: HYDROmorphone 1 mg/mL INJ 1 mL IVP (05:09)
[2020-02-26] MEDS: LORazepam 2 mg/mL INJ 1 mL 1 MG IVP (05:10)
[2020-02-26] MEDS: lactated ringers 1,000 ML 999 ML IV (05:10)
[2020-02-26 05:21] LABS: Add Urine Microscopic? NO
[2020-02-26 05:25] LABS: Basophils % 0.2 %; Hematocrit 40.9 % (37.0-47.0); Lymphocytes # 1.6 10^3/uL (0.8-4.8); Lymphocytes % 18.7 %; Mean Corpuscular HGB Conc 34.2 g/dL (30.0-36.0); Mean Corpuscular Hemoglobin 29.4 pg (28.0-34.0); Mean Corpuscular Volume 85.9 fL (81-99); Mean Platelet Volume 10.7 fL (7.4-10.4); Monocytes # 0.4 10^3/uL (0.2-0.9); Monocytes % 4.3 %; Neutrophils # 6.64 10^3/uL (1.8-7.7); Nucleated Red Blood Cells % 0 %; Platelet Count 358 10^3/cmm (130-400); Red Blood Count 4.76 10^6/uL (4.1-5.3); Red Cell Distribution Width 12.7 % (12.1-15.1); White Blood Count 8.8 10^3/uL (4.0-10.0)
--- NOTE | 2020-02-26 05:36 | W.ED.NAVMDI ---
HPI - Nausea/Vomiting/Diarrhea General: Chief complaint: Nausea/Vomiting/Diarrhea Stated complaint: n/v Time Seen by Provider: 02/26/20 04:40 History of Present Illness: HPI Narrative: 24-year-old female with a history of cannabis related cyclic vomiting presents with nausea and vomiting. She states that she has had no relief for a week. This is her fourth visit to the ER within a week's time for this complaint. He notes vomiting several times in the last 24 hours with retching. She is not been able to hold down liquids. She denies any fever. She complains of diffuse belly pain from retching. She states that she is breathing heavily, and beginning to feel tingly in her hands. MD elicited complaint: nausea and vomiting Pertinent past history: cyclical vomiting Onset (ago): day(s) Description of vomiting: watery Associated nausea: Yes Associated abdominal pain: Yes Location of pain: Diffuse Radiation: diffuse Pain consistency: intermittent Severity: moderate Quality: constant Exacerbating factors: none Relieving factors: none Context: marijuana use Associated symtoms: Reports dizziness and nausea; Denies anxiety, change in vision, chest pain, cough, diaphoresis, dysuria or fevers/chills Review of Systems Const: Denies: diaphoresis Eyes: Denies: change in vision or blurry vision ENMT: Denies: odynophagia, swelling of lips/tongue, dental pain, change in hearing, post nasal drip or sinus pain Card: Denies: chest pain Resp: Denies: dyspnea, productive cough, non-productive cough or wheezing GI: Reports: nausea : Denies: dysuria or hematuria Musc: Denies: neck pain, back pain, joint redness or joint warmth Skin/Breast: Denies: rash, pruritus or erythema Neuro: Reports: dizziness Psych: Denies: anxiety PFSH ED PFSH: Medical History (Updated 02/26/20 @ 06:15 by Tanisha Joseph MD) Cannabis hyperemesis syndrome concurrent with and due to cannabis abuse Surgical History S/P tonsillectomy and adenoidectomy Family History (Updated 02/26/20 @ 06:13 by Tanisha Joseph MD) Mother Cyclical vomiting Social History (Updated 02/26/20 @ 06:14 by Tanisha Joseph MD) Smoking and tobacco status: never smoked Alcohol intake: never Substance/Drug Use: current Substance/Drug use frequency: daily Substance/Drug use type: Marijuana Lives independently: Yes Housing: House Marital status: Single 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, 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: Date of last menstrual period: 02/26/20 Physical Exam Const: GENERAL APPEARANCE: anxious and ill appearing ORIENTATION/CONSCIOUSNESS: Yes oriented to person, Yes oriented to place and Yes oriented to time HENMT: COMMON NORMALS: normocephalic, external ears normal and Normal external nose present HEAD & SCALP: normocephalic FACE & SINUS: normal facial exam NOSE: Normal external nose present EXTERNAL EAR: Yes external ears normal Eye: COMMON NORMALS: Equal, round and reactive pupils present, EOMs intact bilaterally and conjunctivae normal EYELID: eyelids normal CONJUNCTIVA: Yes conjunctivae normal PUPIL: Yes Equal, round and reactive pupils present Neck/C-Spine: COMMON NORMALS: full ROM GENERAL: No tracheal deviation CERVICAL SPINE: Yes normal cervical lordosis and No Cervical spine tenderness Chest: COMMONS NORMALS: normal inspection of the chest CHEST: No tenderness Resp: COMMON NORMALS: clear to auscultation bilaterally EFFORT & INSPECTION: Yes tachypneic, No respiratory distress, No retractions, Yes uses accessory muscles and No tracheal deviation AUSCULTATION: clear to auscultation bilaterally, no rhonchi, no wheezes and lung sounds not diminished Cardio: COMMON NORMALS: regular rate and regular rhythm RATE: regular rate RHYTHM: regular rhythm HEART SOUNDS: no murmurs PERIPHERAL PULSES: radial pulses present GI: INSPECTION: No abdominal distension AUSCULTATION: No Hyperactive bowel sounds present and No Hypoactive bowel sounds present PALPATION: Yes Tenderness to palpation present (GI) (diffuse), Yes Guarding due to palpation present (GI) and No Rigid due to palpation PERCUSSION: no dullness to percussion and no tympanic to percussion Neuro: SENSORIUM/ORIENTATION: Yes oriented to person, Yes oriented to place and Yes oriented to time Psych: COMMON NORMALS: mental status grossly normal Skin: COMMON NORMALS: no rashes or lesions noted GENERAL SKIN EXAM: no rashes or lesions noted Course Consultations: Consultation #1: [email or web address] Vital Signs: Vital signs: Vital Signs Temperature 99.4 F 02/26/20 19:29 Pulse Rate 78 02/26/20 19:29 Respiratory Rate 18 02/26/20 19:29 Blood Pressure 127/78 02/26/20 19:29 Pulse Oximetry 98 02/26/20 19:29 MDM - Nausea/Vomiting/Diarrhea MDM Narrative: Medical decision making narrative: 24-year-old female on her fourth visit this week for cyclic vomiting syndrome. She again is hypokalemic. This will be repleted IV. She will come in for IV hydration, and control of her nausea and vomiting. Lab Data: Labs: Lab Results 02/26/20 02/26/20 02/26/20 Range/Units 05:10 05:10 05:10 WBC 8.8 (4.0-10.0) 10^3/ uL RBC 4.76 (4.1-5.3) 10^6/u L Hgb 14.0 (11.5-15.3) g/dL Hct 40.9 (37.0-47.0) % MCV 85.9 (81-99) fL MCH 29.4 (28.0-34.0) pg MCHC 34.2 (30.0-36.0) g/dL RDW 12.7 (12.1-15.1) % Plt Count 358 (130-400) 10^3/c mm MPV 10.7 H (7.4-10.4) fL Neut % (Auto) 76.0 % Lymph % (Auto) 18.7 % [place] % (Auto) 4.3 % Eos % (Auto) 0.0 % Baso % (Auto) 0.2 % Neut # (Auto) 6.64 (1.8-7.7) 10^3/u L Lymph # (Auto) 1.6 (0.8-4.8) 10^3/u L [place] # (Auto) 0.4 (0.2-0.9) 10^3/u L Eos # (Auto) 0.0 (0.0-0.8) 10^3/u L Baso # (Auto) 0.0 (0.0-0.1) 10^3/u L Nucleated RBC % (a uto) 0 % Nucleated RBCs # 0.0 /100WBC Sodium 140 (136-145) mmol/L Potassium 3.0 L (3.5-5.1) mmol/L Chloride 98 (98-107) mmol/L Carbon Dioxide 25 (22-29) mmol/L Anion Gap 20.0 H (5-19) BUN 7 (6-20) mg/dL Creatinine 0.7 (0.5-0.9) mg/dL GFR Calculation 104.6 (90-130) mL/min Glucose 115 (65-115) mg/dL Calculated Osmolal ity 289 (285-295) mOsm/k g Calcium 9.9 (8.5-10.5) mg/dL Phosphorus 3.6 (2.5-4.5) mg/dL Magnesium 1.8 (1.7-2.3) mg/dL Total Bilirubin 0.7 (0.15-1.2) mg/dL AST 27 (0-32) U/L ALT 56 H (0-33) U/L Alkaline Phosphata se 69 (35-105) IU/L C-Reactive Protein 2.5 (0.0-4.9) mg/L Total Protein 7.6 (6.6-8.7) g/dL Albumin 4.8 (3.5-5.2) g/dL Globulin 2.8 (1.3-4.6) g/dL Lipase 16 (13-60) U/L HCG, Qual Negative (Negative) Urine Color (Yellow) Urine Appearance (CLEAR) Urine pH (5-7) Ur Specific Gravit y (1.005-1.030) Urine Protein (Negative) Urine Glucose (UA) (Normal) Urine Ketones (Negative) Urine Blood (Negative) Urine Nitrate (Negative) Urine Bilirubin (Negative) Urine Urobilinogen (Negative) mg/dL Ur Leukocyte Una ase (Negative) 02/26/20 Range/Units 05:12 WBC (4.0-10.0) 10^3/ uL RBC (4.1-5.3) 10^6/u L Hgb (11.5-15.3) g/dL Hct (37.0-47.0) % MCV (81-99) fL MCH (28.0-34.0) pg MCHC (30.0-36.0) g/dL RDW (12.1-15.1) % Plt Count (130-400) 10^3/c mm MPV (7.4-10.4) fL Neut % (Auto) % Lymph % (Auto) % [place] % (Auto) % Eos % (Auto) % Baso % (Auto) % Neut # (Auto) (1.8-7.7) 10^3/u L Lymph # (Auto) (0.8-4.8) 10^3/u L [place] # (Auto) (0.2-0.9) 10^3/u L Eos # (Auto) (0.0-0.8) 10^3/u L Baso # (Auto) (0.0-0.1) 10^3/u L Nucleated RBC % (a uto) % Nucleated RBCs # /100WBC Sodium (136-145) mmol/L Potassium (3.5-5.1) mmol/L Chloride (98-107) mmol/L Carbon Dioxide (22-29) mmol/L Anion Gap (5-19) BUN (6-20) mg/dL Creatinine (0.5-0.9) mg/dL GFR Calculation (90-130) mL/min Glucose (65-115) mg/dL Calculated Osmolal ity (285-295) mOsm/k g Calcium (8.5-10.5) mg/dL Phosphorus (2.5-4.5) mg/dL Magnesium (1.7-2.3) mg/dL Total Bilirubin (0.15-1.2) mg/dL AST (0-32) U/L ALT (0-33) U/L Alkaline Phosphata se (35-105) IU/L C-Reactive Protein (0.0-4.9) mg/L Total Protein (6.6-8.7) g/dL Albumin (3.5-5.2) g/dL Globulin (1.3-4.6) g/dL Lipase (13-60) U/L HCG, Qual (Negative) Urine Color Yellow (Yellow) Urine Appearance Clear (CLEAR) Urine pH 7 (5-7) Ur Specific Gravit y 1.010 (1.005-1.030) Urine Protein Neg (Negative) Urine Glucose (UA) Norm (Normal) Urine Ketones 2+ H (Negative) Urine Blood Neg (Negative) Urine Nitrate Negative (Negative) Urine Bilirubin 1+ H (Negative) Urine Urobilinogen 4 H (Negative) mg/dL Ur Leukocyte Una ase Negative (Negative) Discharge Plan Discharge Admit Provider: Tanisha Joseph Discharge Date/Time: 02/26/20 06:51 Coding Level of Care Code ED Regulatory Coordinator for Chg Fwd Exam Comprehensive
[2020-02-26 05:44] LABS: Bilirubin Urine 1+ (Negative); Blood Urine Neg (Negative); Glucose Urine UA Norm (Normal); Ketones Urine 2+ (Negative); Leukocyte Esterase Urine Negative (Negative); Nitrate Urine Negative (Negative); Protein Urine Neg (Negative); Urine Appearance Clear (CLEAR); Urine Color Yellow (Yellow); Urobilinogen Urine 4 mg/dL (Negative); pH Urine 7 (5-7)
[2020-02-26 05:51] LABS: Alanine Aminotransferase 56 U/L (0-33); Albumin Level 4.8 g/dL (3.5-5.2); Alkaline Phosphatase 69 IU/L (35-105); Aspartate Amino Transferase 27 U/L (0-32); Blood Urea Nitrogen 7 mg/dL (6-20); C Reactive Protein 2.5 mg/L (0.0-4.9); Calcium 9.9 mg/dL (8.5-10.5); Carbon Dioxide 25 mmol/L (22-29); Chloride 98 mmol/L (98-107); Globulin 2.8 g/dL (1.3-4.6); Glomerular Filtration Rate 104.6 mL/min (90-130); Glucose 115 mg/dL (65-115); Lipase 16 U/L (13-60); Magnesium 1.8 mg/dL (1.7-2.3); Osmolality Calculated 289 mOsm/kg (285-295); Phosphorus 3.6 mg/dL (2.5-4.5); Sodium 140 mmol/L (136-145); Total Bilirubin 0.7 mg/dL (0.15-1.2); Total Protein 7.6 g/dL (6.6-8.7)
[2020-02-26 05:59] LABS: HCG, Serum Qual Negative (Negative)
--- NOTE | 2020-02-26 06:00 | PM.HP ---
Providers/Chief Complaint Primary Care Provider: Aureliano Rodas MD Chief Complaint: n/v History of Present Illness Deven Michael is a 24 year old female who has history of cyclical vomiting syndrome currently use marijuana, came in with chief complaint of intractable nausea vomiting. 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 She is denying fever, blood in stool, blood in vomiting. She has not been able to eat much in last few days hence decided to come to the ED today. Diagnosis in the ER revealed normal hemodynamics, sinus bradycardia, hypokalemia, patient endorses to daily marijuana use. Review of Systems Const: Reports: chills, body aches, change in appetite and fatigue; Denies: fever(s) Eyes: Denies: change in vision ENMT: Denies: throat pain Card: Denies: chest pain Resp: Denies: dyspnea GI: Reports: abdominal pain, nausea and vomiting; Denies: diarrhea or constipation : Denies: flank pain Musc: Denies: neck pain Skin/Breast: Denies: rash Neuro: Denies: headache(s) Psych: Reports: anxiety and depression Endo: Denies: polyuria Woo/Lymph: Denies: easy bruising All/Imm: Denies: urticaria Medications/Allergies Home Medications Medication Instructions Recorded Confirmed Last Taken Type ondansetron HCl [Zofran] 4 mg PO Q6H PRN #15 tab 08/31/19 02/26/20 09/02/19 05:00 Rx lorazepam [Ativan] 1 mg PO Q8H PRN #14 tab 09/07/19 12/07/19 Unknown Rx promethazine 25 mg PO PRN 09/07/19 12/07/19 09/07/19 History chlorpromazine 25 mg PO TID #10 tab 02/18/20 02/26/20 Unknown Rx lorazepam [Ativan] 1 mg PO Q6H PRN #10 tab 02/21/20 02/26/20 Unknown Rx nitrofurantoin macrocrystal 100 mg PO BID 7 Days #14 cap 02/21/20 02/26/20 Unknown Rx [Macrodantin] promethazine 25 mg PO Q6H PRN #14 tab 02/21/20 02/26/20 Unknown Rx metoclopramide HCl [Reglan] 10 mg PO Q6H PRN #20 tab 02/23/20 02/26/20 Unknown Rx Allergies Allergy/AdvReac Type Severity Reaction Status Date / Time hydrocodone Allergy ALGY-Hives Verified 02/26/20 04:49 PFSH Acute PFSH: Medical History (Updated 02/26/20 @ 06:15 by Tanisha Joseph MD) Cannabis hyperemesis syndrome concurrent with and due to cannabis abuse Surgical History S/P tonsillectomy and adenoidectomy Family History (Updated 02/26/20 @ 06:13 by Tanisha Joseph MD) Mother Cyclical vomiting Social History (Updated 02/26/20 @ 06:14 by Tanisha Joseph MD) Smoking and tobacco status: never smoked Alcohol intake: never Substance/Drug Use: current Substance/Drug use frequency: daily Substance/Drug use type: Marijuana Lives independently: Yes Housing: House Marital status: Single 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, 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: Date of last menstrual period: 02/26/20 Vitals/I&O/Wt Last Vital Signs Temp 98.1 F 02/26/20 04:43 Pulse 58 L 02/26/20 05:22 Resp 16 02/26/20 05:22 BP 118/60 02/26/20 05:22 Pulse Ox 94 02/26/20 05:22 Weight last 48 hrs Weight 63.503 kg Physical Exam Narrative: EXAM NARRATIVE: Young female, laying comfortably in her bed Clinically looks dehydrated Currently drowsy secondary to opioid use Endorses marijuana Hemodynamically stable, sinus bradycardia Awake alert oriented x3 GCS 15 S1, S2, sinus bradycardia, Abdomen soft nontender bowel sound present, splenomegaly, nontender Lower extremity no edema gangrene ulcer EOMI, PERRLA No skin ulcers or gangrene Data : 02/26/20 05:10 02/26/20 05:10 A&P Assessment and plan (1) Cannabinoid hyperemesis syndrome: Status: Acute (2) Hypokalemia: Status: Acute Additional A&P Information Hyperemesis syndrome secondary to cannabis use She is using marijuana on a daily basis, this is her fourth visit to the ER, CT abdomen is revealing splenomegaly, no history of infectious mononucleosis, nontender splenomegaly, Antiemetics alternating between Reglan and Zofran Drug screen Regular diet IV fluid resuscitation Hypokalemia: Potassium repleted Hypokalemia due to excessive vomiting THC abuse: Needs excessive reinforcement to quit marijuana, she does not think marijuana is contributing towards her symptoms. Full code Regular diet DVT prophylaxis not indicated, she is low risk, she is young and active Attestations Medical Necessity Statement*: Patient discharge in less than 48 hours continued IV antiemetics IV fluid resuscitation for dehydration and cyclical vomiting syndrome Time Spent in Patient Care: 25mins Coding Level of Care Code Acute Handy Worker for Carlos Ahuja Diagnoses Cannabinoid hyperemesis syndrome R11.2; F12.90 Hypokalemia E87.6
[2020-02-26] MEDS: potassium chloride premix 100 ML 25 MEQ IV (06:30)
[2020-02-26] MEDS: sodium chloride 0.9% 1,000 ML 100 ML IV (06:32)
[2020-02-26] MEDS: lactated ringers 1,000 ML 100 ML IV ×2 (08:15→18:05)
[2020-02-26] MEDS: potassium chloride ER 10 mEq Tablet 40 MEQ PO (08:15)
--- NOTE | 2020-02-26 09:53 | PM.MISC ---
Miscellaneous Note Note: Patient reports feeling slightly better this morning. Admits smoking marijuana for long period of time and we have discussed that is likely the cause of her cyclical nausea and vomiting. Potassium repleted and IV fluids switched to LR. Patient denies shortness of breath or chest pain.
--- NOTE | 2020-02-26 11:52 | PC.NURSE ---
pt called this nurse into room and requested that I call her mom, Bryant, and add her to pt contact list at [phone].
[2020-02-26 14:02] LABS: Amphetamines Screen Urine Negative (Negative); Barbiturates Screen Urine Negative (Negative); Benzodiazepines Screen Urine Positive (Negative); Cocaine Screen Urine Negative (Negative); Opiate Screen Urine Positive (Negative); PCP Screen Urine Negative (Negative); THC Screen Urine Positive (Negative)
[2020-02-26] MEDS: ondansetron 2 mg/ML SDV 2 mL 4 MG IVP ×2 (14:26→17:32)
--- NOTE | 2020-02-26 19:20 | PC.NURSE ---
while talking with pt, was discovered that pts 1 and 2 year old were staying with Daija, pts 13 year old sister. pt stated, my mom picked them up at a little after 4pm. case management notified who stated to hotline event. placed call to [facility] at [phone] and talked to Di, worker ID number [id number]. Dr. Anders notified.
[2020-02-26] MEDS: metoclopramide 5 mg/mL SDV 2 mL IVP (20:03)
[2020-02-27] VITALS: BP 120/70; PULSE 70; RESP 18; TEMP 37.2; O2SAT 96
[2020-02-27] MEDS: ondansetron 2 mg/ML SDV 2 mL 4 MG IVP (00:53)
[2020-02-27 04:00] VITALS: BP 97/51; PULSE 69; RESP 18; TEMP 36.6; O2SAT 97
[2020-02-27 05:50] LABS: Anion Gap 13.9 (5-19); Blood Urea Nitrogen 6 mg/dL (6-20); Calcium 9.6 mg/dL (8.5-10.5); Carbon Dioxide 25 mmol/L (22-29); Chloride 100 mmol/L (98-107); Glomerular Filtration Rate 104.6 mL/min (90-130); Glucose 99 mg/dL (65-115); Osmolality Calculated 278 mOsm/kg (285-295); Potassium 3.9 mmol/L (3.5-5.1); Sodium 135 mmol/L (136-145)
[2020-02-27] MEDS: metoclopramide 5 mg/mL SDV 2 mL IVP (05:51)
[2020-02-27 07:36] VITALS: BP 117/71; PULSE 62; RESP 18; TEMP 36.8; O2SAT 98
--- NOTE | 2020-02-27 09:53 | PC.CHAP ---
Pastoral Care Encounter/Spiritual Assessment Type of Contact [] Declined market development analyst visit [] Patient/Family/Request visit [] Outpatient visit [] Follow-up visit [] Physician referral [] Code/Alert [x] Routine visit [] Staff referral [] Actively dying [] Patient sleeping [] Family support [] [] Out of room [] Palliative care [] [] Receiving care in room [] Pre-surgical visit [] Trauma [] Long length of stay [] ICU visit [] Other: Relational/Emotional Strength [] Patient feels connected with others/family/visitors/staff [] Distress [] Loneliness/isolation [] Abandonment Spirituality of Patient [] Person of [place] [] Attends Methodist of their [place] [] Believes in Prayer [] Reads Bible or Worship materials [] There are Spiritual issues to be addressed Matrix Drier Tender Interventions [x] Prayer [x] Active listening [x] Non-anxious presence [] Spiritual/emotional support [] Crisis/trauma care [] Spiritual counseling [] Bereavement support [] Provided bereavement packet [] Provided Bible/devotional materials [] Provided toy/stuffed animal, coloring book to patient or family member [] Provided Communion [] Anointing/[place] [] Salvation [x] Completed spiritual assessment [] Other: Impact on Illness or Injury [] Angry [] Fearful [] Anxious [] Often cries [] Exhaustion [] Unable to work [] Unable to attend zoroastrianism [] Unable to walk/stand [] Unable to read [] Unable to drive [] Unable to eat/drink [] Unable to sleep [] Unable to be with family [] Patient intubated [] Other: Summary patient anxious to return home... two very small children.. grandmother taking care of them. we prayed for strength ..... Time spent with patient 10 min
--- NOTE | 2020-02-27 10:05 | P.DS_ITS ---
Discharge Providers Date of Admission: 02/26/20 06:21 Date of Discharge: February 27, 2020 Attending Provider at Admission: Tanisha Joseph MD Attending Provider at Discharge: Yi Joyce DO Primary Care Provider: Aureliano Rodas MD Diagnoses at Discharge Discharge Diagnosis (1) Cannabinoid hyperemesis syndrome: Status: Acute (2) Hypokalemia: Status: Acute Reason for Visit Reason for Visit: n/v Hospital Course Hospital Course: Patient is a 24-year-old female who has a history of cyclic vomiting syndrome recurrent use of marijuana but came in with concern for intractable nausea vomiting. Patient had dehydration and reported 15 episodes of vomiting per day. She was admitted to the hospital given IV fluids and antiemetics and continued to show improvement. On date of discharge she was awake in bed and requesting discharge to home. Long discussion with patient about continued use of marijuana and recommendation to stop using due to concern for cannabinoid induced hyperemesis, she verbalized understanding and agreed with plan. She denied any chest pain, no shortness of breath, no abdominal pain on date of discharge Physical Exam Const: COMMON NORMALS: patient oriented x3 and alert GENERAL APPEARANCE: cooperative ORIENTATION/CONSCIOUSNESS: Yes awake, Yes oriented to person, Yes oriented to place and Yes oriented to time HENMT: COMMON NORMALS: normocephalic and atraumatic HEAD & SCALP: normocephalic and atraumatic Eye: COMMON NORMALS: Equal, round and reactive pupils present PUPIL: Yes Equal, round and reactive pupils present Neck/C-Spine: COMMON NORMALS: supple GENERAL: Yes normal visual inspection Resp: COMMON NORMALS: normal respiratory effort and clear to auscultation bilaterally EFFORT & INSPECTION: Yes able to speak in complete sentences AUSCULTATION: clear to auscultation bilaterally, no rhonchi and no wheezes Cardio: COMMON NORMALS: regular rate, regular rhythm and No murmurs present (Cardio) RATE: regular rate RHYTHM: regular rhythm GI: COMMON NORMALS: non-tender INSPECTION: No abdominal distension Extremity: COMMON NORMALS: no clubbing, cyanosis or edema Neuro: COMMON NORMALS: patient oriented x3, CN's II-XII intact bilaterally, moves all extremities and no focal motor deficits SENSORIUM/ORIENTATION: Yes alert, Yes oriented to person, Yes oriented to place and Yes oriented to time SPEECH: speech normal Psych: COMMON NORMALS: mental status grossly normal and cooperative Skin: COMMON NORMALS: no rashes or lesions noted GENERAL SKIN EXAM: no rashes or lesions noted Discharge Data Data Completed and Pending: Labs from last 24 hours 02/27/20 02/26/20 04:47 13:43 Sodium 135 L Potassium 3.9 Chloride 100 Carbon Dioxide 25 Anion Gap 13.9 BUN 6 Creatinine 0.7 GFR Calculation 104.6 Glucose 99 Calculated Osmolal ity 278 L Calcium 9.6 Urine Opiates Scre en Positive H Ur Barbiturates Sc reen Negative Ur Phencyclidine S crn Negative Ur Amphetamines Sc reen Negative U Benzodiazepines Scrn Positive H Urine Cocaine Scre en Negative U Marijuana (THC) Screen Positive H Vitals: Last Vital Signs Temp 98.3 F 02/27/20 07:36 Pulse 62 02/27/20 07:36 Resp 18 02/27/20 07:36 BP 117/71 02/27/20 07:36 Pulse Ox 98 02/27/20 07:36 Discharge Plan Discharge Patient Disposition: Home Condition: Stable Prescriptions: Continued chlorpromazine 25 mg tablet 25 mg PO TID Qty: 10 RF: 0 Tylenol Extra Strength 500 mg Tablet 1,000 mg PO PRN RF: 0 ibuprofen 200 mg Tablet 600 mg PO PRN RF: 0 ondansetron HCl [Zofran] 4 mg tablet 4 mg PO Q6H PRN (Reason: nausea and vomiting) Qty: 15 RF: 0 lorazepam [Ativan] 1 mg tablet 1 mg PO Q6H PRN (Reason: nausea and vomiting) Qty: 10 RF: 0 promethazine 25 mg tablet 25 mg PO Q6H PRN (Reason: nausea and vomiting) Qty: 14 RF: 0 nitrofurantoin macrocrystal [Macrodantin] 100 mg capsule 100 mg PO BID 7 Days Qty: 14 RF: 0 metoclopramide HCl [Reglan] 10 mg tablet 10 mg PO Q6H PRN (Reason: nausea and vomiting) Qty: 20 RF: 0 Discharge Orders: Discharge Order (Routine); Ordered 02/27/20 Ordered By: Yi Joyce Referrals: Aureliano Rodas MD [Primary Care Provider] - 4-7 days Discharge Diet: Advance as tolerated Discharge Activity: Increase activity as tolerated Patient Instructions: Cannabis Abuse (GEN) Activity Restrictions/Additional Instructions: Strongly encourage cessation from cannabinoids due to concern for cyclic vomiting syndrome believed to be secondary to cannabinoid use. Follow-up with primary care provider in 4 to 7 days Increase activity as tolerated, increase diet as tolerated Call your physician or present to the ED for any acute illness or concern Discharge Attestations Time Spent in Discharge Care*: greater than 30 min Quality Metrics Clinical Quality Measures During this hospital stay, did patient experience: None Coding Level of Care Code Acute Wildlife Control Operator for Carlos Ahuja Diagnoses Cannabinoid hyperemesis syndrome R11.2; F12.90 Hypokalemia E87.6
[2020-02-27 11:03] VITALS: BP 117/71; PULSE 62; RESP 18; TEMP 36.8; O2SAT 98
--- NOTE | 2020-02-27 11:04 | PC.NURSE ---
Reviewed patient discharge with patient at this time. Patient verbalized understanding of discharge instructions including follow up with Dr. Rodas on ThursdayMarch 05. Patient denies any nausea or vomiting at this time. Patient is A&Ox3. Respirations even and non-labored on room air. Patient wheel chaired to private car.
== END 2020-02-27 11:00 | disposition home or self-care (01) ==
LOC: ER 04:40 → MEDSURG 06:35
PROVIDERS: Emergency Medicine; Admitting Provider Internal Medicine; PCP Family Medicine; Visit Provider Family Medicine
DX: R11.2 Nausea with vomiting, unspecified (principal); F12.90 Cannabis use, unspecified, uncomplicated; E87.6 Hypokalemia
CPT/HCPCS: 12345; 36415; 80048; 80053; 80306; 81003; 83690; 83735; 84100; 84703; 85025; 86140; 96361; 96365; 96367; 96375; 99283; 99285; G0378; J1170; J1630; J2060; J2405; J2765; J3480; J7030

== ENCOUNTER 2020-04-19 09:09 | Emergency (ER) | payer MEDICAID, SELFPAY ==
[2020-04-19] VITALS (7 sets, daily range): BP systolic 101–127; BP diastolic 55–73; PULSE 63–80; RESP 17–18; TEMP 36.6; O2SAT 91–100; BMI 21.4
--- NOTE | 2020-04-19 09:18 | ED_ITS ---
HPI - Nausea/Vomiting/Diarrhea General: Chief complaint: Nausea/Vomiting/Diarrhea Stated complaint: N/V Time Seen by Provider: 04/19/20 09:16 History of Present Illness: HPI Narrative: Patient is a 24-year-old female comes to the ED with nausea and vomiting. Patient has been seen here in the ED multiple times for same complaint with most recent back on February 22 and she was diagnosed with cannabinoid hyperemesis syndrome. Symptoms started approximately 3 days ago. Her nausea and vomiting improves and she takes a hot shower. Denies any fever, chills, shortness of breath, chest pain, abdominal pain, bladder or bowel symptoms. Patient says she has been trying to drink a lot of water for the past 3 days but she keeps throwing it up. Patient is a chronic marijuana smoker. Associated nausea: Yes Associated symtoms: Reports nausea; Denies change in vision, chest pain, dysuria, fatigue, headache(s) or palpitations Review of Systems Const: Denies: fever(s), chills or fatigue Eyes: Denies: change in vision or eye discomfort ENMT: Denies: throat pain, odynophagia, nasal discharge or nasal congestion Card: Denies: chest pain, palpitations, edema, swelling of feet/ankles, dyspnea on exertion or orthopnea Resp: Denies: dyspnea, productive cough or non-productive cough GI: Reports: nausea and vomiting; Denies: abdominal pain, diarrhea, constipation or hematochezia : Denies: flank pain, dysuria or hematuria Musc: Denies: neck pain, back pain or extremity swelling Skin/Breast: Denies: rash or new lesions Neuro: Denies: headache(s), numbness in extremities or weakness in extremities PFSH ED PFSH: Medical History Cannabinoid hyperemesis syndrome Cannabis hyperemesis syndrome concurrent with and due to cannabis abuse Surgical History S/P tonsillectomy and adenoidectomy Family History Mother Cyclical vomiting Social History Smoking and tobacco status: never smoked Alcohol intake: never Lives independently: Yes Housing: House Marital status: Single 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, 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: Date of last menstrual period: 02/26/20 Physical Exam Const: COMMON NORMALS: no acute distress, patient oriented x3, healthy appearing and alert GENERAL APPEARANCE: cooperative and comfortable HENMT: COMMON NORMALS: normocephalic HEAD & SCALP: normocephalic MOUTH: Normal oral and palatal mucosa present and moist mucous membranes abnormal (Mild dehydration.) THROAT: posterior oropharynx normal and uvula midline Eye: COMMON NORMALS: Equal, round and reactive pupils present PUPIL: Yes Equal, round and reactive pupils present Neck/C-Spine: COMMON NORMALS: supple GENERAL: Yes normal visual inspection Resp: COMMON NORMALS: normal respiratory effort, No retractions, No use of accessory muscles and clear to auscultation bilaterally AUSCULTATION: clear to auscultation bilaterally Cardio: COMMON NORMALS: regular rate, regular rhythm, S1 normal heart sound present, S2 normal heart sound present, No gallops present (Cardio), No clicks present (Cardio), No murmurs present (Cardio) and Peripheral pulses 2+ throughout RATE: regular rate RHYTHM: regular rhythm HEART SOUNDS: S1 normal heart sound present and S2 normal heart sound present PERIPHERAL PULSES: Peripheral pulses 2+ throughout GI: COMMON NORMALS: Normal to inspection, nondistended, normoactive bowel sounds present, Soft to palpation, non-tender and no masses PALPATION: Yes Soft to palpation : COMMON NORMALS: Yes no CVA tenderness BLADDER/KIDNEY EXAM: Yes no CVA tenderness Back/Pelvis: COMMON NORMALS: no CVA tenderness Extremity: COMMON NORMALS: normal to inspection and no pedal edema Neuro: COMMON NORMALS: patient oriented x3 and moves all extremities SENSORIUM/ORIENTATION: Yes alert Skin: GENERAL SKIN EXAM: dry skin Course Reevaluation(s): Reevaluation #1: Patient's nausea improved after she received some Ativan, Haldol and Dilaudid. Notes when she received in previous visits to help her nausea and at work today. Patient says her symptoms have improved and she is ready go home and rest. Time: 11:44 Vital Signs: Vital signs: Vital Signs Temperature 97.8 F 04/19/20 09:16 Pulse Rate 80 04/19/20 09:51 Respiratory Rate 18 04/19/20 10:51 Blood Pressure 127/59 04/19/20 09:51 Pulse Oximetry 98 04/19/20 10:51 MDM - Nausea/Vomiting/Diarrhea MDM Narrative: Medical decision making narrative: Patient is a 24-year-old female who comes to the ED with nausea and vomiting. Patient has been seen here for same complaint before and she has been diagnosed with cannabinoid hyperemesis syndrome. She is having the same symptoms as her past visit and says her nausea and vomiting improves with hot shower and she admits to being in marijuana smoker. Labs were unremarkable. hCG negative. Patient was given IV fluids and Reglan and had minimal improvement. She was then given a dose of Haldol, Ativan and Dilaudid, which has been done here in the ED to help her symptoms previously. Her symptoms improved greatly and she was ready to go home be discharged. Patient diagnosed hyperemesis cannabinoid syndrome and sent home with prescription for Zofran. Return to ED precautions given. Follow-up with PCP in 7 to 10 days. Patient understood agree with plan. Lab Data: Attestation: I reviewed the patient's lab results. Labs: Lab Results 04/19/20 04/19/20 04/19/20 Range/Units 09:39 09:39 09:55 WBC 12.2 H (4.0-10.0) 10^3/ uL RBC 4.73 (4.1-5.3) 10^6/u L Hgb 14.4 (11.5-15.3) g/dL Hct 42.2 (37.0-47.0) % MCV 89.2 (81-99) fL MCH 30.4 (28.0-34.0) pg MCHC 34.1 (30.0-36.0) g/dL RDW 13.0 (12.1-15.1) % Plt Count 242 (130-400) 10^3/c mm MPV 10.8 H (7.4-10.4) fL Neut % (Auto) 75.6 % Lymph % (Auto) 15.9 % [place] % (Auto) 7.8 % Eos % (Auto) 0.1 % Baso % (Auto) 0.1 % Neut # (Auto) 9.20 H (1.8-7.7) 10^3/u L Lymph # (Auto) 1.9 (0.8-4.8) 10^3/u L [place] # (Auto) 1.0 H (0.2-0.9) 10^3/u L Eos # (Auto) 0.0 (0.0-0.8) 10^3/u L Baso # (Auto) 0.0 (0.0-0.1) 10^3/u L Nucleated RBC % (a uto) 0 % Nucleated RBCs # 0.0 /100WBC Sodium 135 L (136-145) mmol/L Potassium 3.4 L (3.5-5.1) mmol/L Chloride 95 L (98-107) mmol/L Carbon Dioxide 26 (22-29) mmol/L Anion Gap 17.4 (5-19) BUN 9 (6-20) mg/dL Creatinine 0.7 (0.5-0.9) mg/dL GFR Calculation 104.6 (90-130) mL/min Glucose 94 (65-115) mg/dL Calculated Osmolal ity 278 L (285-295) mOsm/k g Calcium 9.8 (8.5-10.5) mg/dL Total Bilirubin 0.6 (0.15-1.2) mg/dL AST 25 (0-32) U/L ALT 28 (0-33) U/L Alkaline Phosphata se 67 (35-105) IU/L Total Protein 7.5 (6.6-8.7) g/dL Albumin 4.8 (3.5-5.2) g/dL Globulin 2.7 (1.3-4.6) g/dL HCG, Qual Negative (Negative) Discharge Plan Discharge Patient Disposition: Home Clinical Impression: Cannabinoid hyperemesis syndrome Condition: Stable Prescriptions: New Zofran 4 mg tablet 4 mg PO Q8H Qty: 15 RF: 0 No Action chlorpromazine 25 mg tablet 25 mg PO TID Qty: 10 RF: 0 Tylenol Extra Strength 500 mg Tablet 1,000 mg PO PRN RF: 0 ibuprofen 200 mg Tablet 600 mg PO PRN RF: 0 ondansetron HCl [Zofran] 4 mg tablet 4 mg PO Q6H PRN (Reason: nausea and vomiting) Qty: 15 RF: 0 lorazepam [Ativan] 1 mg tablet 1 mg PO Q6H PRN (Reason: nausea and vomiting) Qty: 10 RF: 0 promethazine 25 mg tablet 25 mg PO Q6H PRN (Reason: nausea and vomiting) Qty: 14 RF: 0 metoclopramide HCl [Reglan] 10 mg tablet 10 mg PO Q6H PRN (Reason: nausea and vomiting) Qty: 20 RF: 0 Discharge Orders: Discharge ED (Routine); Ordered 04/19/20 Ordered By: Tony Villanueva Referrals: Aureliano Rodas MD [Primary Care Provider] - Discharge Diet: Advance as tolerated Discharge Activity: Increase activity as tolerated Patient Instructions: Acute Nausea and Vomiting (ED) Activity Restrictions/Additional Instructions: Follow-up with medical provider as directed in 7 to 10 days. Take medications as prescribed. Return to the ER or your medical provider if condition worsens. Please read and understand discharge instructions. If any questions, please ask. Coding Level of Care Code ED Prosthetics Assistant for [facility] Exam Comprehensive
[2020-04-19] MEDS: metoclopramide 5 mg/mL SDV 2 mL 10 MG IVP (09:48)
[2020-04-19 09:49] LABS: Basophils % 0.1 %; Eosinophils % 0.1 %; Hematocrit 42.2 % (37.0-47.0); Hemoglobin 14.4 g/dL (11.5-15.3); Lymphocytes # 1.9 10^3/uL (0.8-4.8); Lymphocytes % 15.9 %; Mean Corpuscular HGB Conc 34.1 g/dL (30.0-36.0); Mean Corpuscular Hemoglobin 30.4 pg (28.0-34.0); Mean Corpuscular Volume 89.2 fL (81-99); Mean Platelet Volume 10.8 fL (7.4-10.4); Monocytes % 7.8 %; Neutrophils % 75.6 %; Nucleated Red Blood Cells % 0 %; Platelet Count 242 10^3/cmm (130-400); Red Blood Count 4.73 10^6/uL (4.1-5.3); White Blood Count 12.2 10^3/uL (4.0-10.0)
[2020-04-19] MEDS: sodium chloride 0.9% 1,000 ML 999 ML IV (09:49)
[2020-04-19 10:12] LABS: Alanine Aminotransferase 28 U/L (0-33); Albumin Level 4.8 g/dL (3.5-5.2); Alkaline Phosphatase 67 IU/L (35-105); Aspartate Amino Transferase 25 U/L (0-32); Blood Urea Nitrogen 9 mg/dL (6-20); Calcium 9.8 mg/dL (8.5-10.5); Carbon Dioxide 26 mmol/L (22-29); Chloride 95 mmol/L (98-107); Globulin 2.7 g/dL (1.3-4.6); Glomerular Filtration Rate 104.6 mL/min (90-130); Glucose 94 mg/dL (65-115); Osmolality Calculated 278 mOsm/kg (285-295); Sodium 135 mmol/L (136-145); Total Bilirubin 0.6 mg/dL (0.15-1.2); Total Protein 7.5 g/dL (6.6-8.7)
[2020-04-19 10:13] LABS: Anion Gap 17.4 (5-19); Potassium 3.4 mmol/L (3.5-5.1)
[2020-04-19] MEDS: LORazepam 2 mg/mL INJ 1 mL 1 MG IVP (10:17)
[2020-04-19] MEDS: haloperidol inj 5 mg/mL INJ 1 mL IVP (10:17)
[2020-04-19 10:19] LABS: HCG, Serum Qual Negative (Negative)
[2020-04-19] MEDS: HYDROmorphone 1 mg/mL INJ 1 mL IVP (10:51)
[2020-04-19 12:18] LABS: Bilirubin Urine 1+ (Negative); Blood Urine Neg (Negative); Glucose Urine UA Norm (Normal); Ketones Urine 1+ (Negative); Leukocyte Esterase Urine 1+ (Negative); Nitrate Urine Negative (Negative); Protein Urine Trace (Negative); Urine Appearance Cloudy (CLEAR); Urine Color Yellow (Yellow); Urobilinogen Urine Norm (Negative); pH Urine 6 (5-7)
[2020-04-19 12:32] LABS: Bacteria Urine 1+ /hpf; Mucus Urine 1+ /hpf; RBC Urine 0-4 /hpf (0-2); Squamous Epithelial Cell Urine 0-4 /hpf (0-5)
== END 2020-04-19 12:54 | disposition home or self-care (01) ==
PROVIDERS: Emergency Provider Physician Assistant; PCP Family Medicine
DX: R11.2 Nausea with vomiting, unspecified (principal); F12.90 Cannabis use, unspecified, uncomplicated
CPT/HCPCS: 12345; 80053; 81001; 84703; 85025; 96361; 96374; 96375; 99282; 99283; J1170; J1630; J2060; J2765; J7030

== ENCOUNTER 2020-04-20 07:27 | Emergency (ER) | payer MEDICAID, SELFPAY ==
[2020-04-20 07:32] VITALS: BP 118/74; PULSE 75; RESP 16; TEMP 36.9; O2SAT 98; BMI 21.4
--- NOTE | 2020-04-20 07:37 | W.ED.NAVMDI ---
HPI - Nausea/Vomiting/Diarrhea General: Chief complaint: Nausea/Vomiting/Diarrhea Stated complaint: N/V more than 48hours Time Seen by Provider: 04/20/20 07:30 History of Present Illness: HPI Narrative: Patient is a 24-year-old female comes to the ED with nausea and vomiting. Patient was seen here yesterday for same complaint. She has been diagnosed with cannabinoid hyperemesis syndrome in the past. Patient said her symptoms improved for couple hours after she was treated here in the ED yesterday but then her nausea vomiting came back. She has now had this nausea and vomiting symptoms for the past 4 days. Patient is a chronic marijuana smoker and states that hot shower does improve her symptoms. She denies any other change in her symptoms or any onset of new symptoms such as fever, bladder or bowel symptoms. Associated nausea: Yes Associated symtoms: Reports nausea; Denies change in vision, chest pain, dysuria, fatigue, headache(s) or palpitations Review of Systems Const: Denies: fever(s), chills or fatigue Eyes: Denies: change in vision or eye discomfort ENMT: Denies: throat pain, odynophagia, nasal discharge or nasal congestion Card: Denies: chest pain, palpitations, edema, swelling of feet/ankles, dyspnea on exertion or orthopnea Resp: Denies: dyspnea, productive cough or non-productive cough GI: Reports: nausea and vomiting; Denies: abdominal pain, diarrhea, constipation or hematochezia : Denies: flank pain, dysuria or hematuria Musc: Denies: neck pain, back pain or extremity swelling Skin/Breast: Denies: rash or new lesions Neuro: Denies: headache(s), numbness in extremities or weakness in extremities PFSH ED PFSH: Medical History Cannabinoid hyperemesis syndrome Cannabis hyperemesis syndrome concurrent with and due to cannabis abuse Surgical History S/P tonsillectomy and adenoidectomy Family History Mother Cyclical vomiting Social History Smoking and tobacco status: never smoked Alcohol intake: never Substance/Drug Use: current Substance/Drug use frequency: daily Substance/Drug use type: Marijuana Lives independently: Yes Housing: House Marital status: Single 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, works at night as [employer] Female 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 History: Date of last menstrual period: 04/05/20 Physical Exam Const: COMMON NORMALS: no acute distress, patient oriented x3, healthy appearing and alert GENERAL APPEARANCE: cooperative and comfortable HENMT: COMMON NORMALS: normocephalic HEAD & SCALP: normocephalic MOUTH: Normal oral and palatal mucosa present and moist mucous membranes abnormal (mild dehydration) THROAT: posterior oropharynx normal and uvula midline Eye: COMMON NORMALS: Equal, round and reactive pupils present PUPIL: Yes Equal, round and reactive pupils present Neck/C-Spine: COMMON NORMALS: supple GENERAL: Yes normal visual inspection Resp: COMMON NORMALS: normal respiratory effort, No retractions, No use of accessory muscles and clear to auscultation bilaterally AUSCULTATION: clear to auscultation bilaterally Cardio: COMMON NORMALS: regular rate, regular rhythm, S1 normal heart sound present, S2 normal heart sound present, No gallops present (Cardio), No clicks present (Cardio), No murmurs present (Cardio) and Peripheral pulses 2+ throughout RATE: regular rate RHYTHM: regular rhythm HEART SOUNDS: S1 normal heart sound present and S2 normal heart sound present PERIPHERAL PULSES: Peripheral pulses 2+ throughout GI: COMMON NORMALS: Normal to inspection, nondistended, normoactive bowel sounds present, Soft to palpation, non-tender and no masses PALPATION: Yes Soft to palpation : COMMON NORMALS: Yes no CVA tenderness BLADDER/KIDNEY EXAM: Yes no CVA tenderness Back/Pelvis: COMMON NORMALS: no CVA tenderness Extremity: COMMON NORMALS: normal to inspection and no pedal edema Neuro: COMMON NORMALS: patient oriented x3 and moves all extremities SENSORIUM/ORIENTATION: Yes alert Skin: GENERAL SKIN EXAM: dry skin Course Vital Signs: Vital signs: Vital Signs Temperature 98.4 F 04/20/20 07:32 Pulse Rate 88 04/20/20 09:45 Respiratory Rate 18 04/20/20 09:45 Blood Pressure 98/54 04/20/20 09:45 Pulse Oximetry 98 04/20/20 09:45 MDM - Nausea/Vomiting/Diarrhea MDM Narrative: Medical decision making narrative: Patient is a 24-year-old female comes to the ED with nausea and vomiting. She has a history of cannabinoid hyperemesis syndrome and was seen here yesterday for same complaint. Patient was given IV fluids and meds and her nausea and vomiting improved greatly. Labs were unremarkable. She was then discharged home with prescription for dissolvable Zofran tablets. Return to ED precautions given. Cessation of marijuana discussed. Patient told to follow-up with PCP in 7 to 10 days. Patient understood agree with plan. Lab Data: Attestation: I reviewed the patient's lab results. Labs: Lab Results 04/20/20 04/20/20 Range/Units 07:40 07:40 WBC 10.2 H (4.0-10.0) 10^3/ uL RBC 4.77 (4.1-5.3) 10^6/u L Hgb 14.3 (11.5-15.3) g/dL Hct 42.5 (37.0-47.0) % MCV 89.1 (81-99) fL MCH 30.0 (28.0-34.0) pg MCHC 33.6 (30.0-36.0) g/dL RDW 12.6 (12.1-15.1) % Plt Count 231 (130-400) 10^3/c mm MPV 10.8 H (7.4-10.4) fL Neut % (Auto) 90.8 % Lymph % (Auto) 6.8 % [place] % (Auto) 1.9 % Eos % (Auto) 0.0 % Baso % (Auto) 0.1 % Neut # (Auto) 9.23 H (1.8-7.7) 10^3/u L Lymph # (Auto) 0.7 L (0.8-4.8) 10^3/u L [place] # (Auto) 0.2 (0.2-0.9) 10^3/u L Eos # (Auto) 0.0 (0.0-0.8) 10^3/u L Baso # (Auto) 0.0 (0.0-0.1) 10^3/u L Nucleated RBC % (a uto) 0 % Nucleated RBCs # 0.0 /100WBC Sodium 136 (136-145) mmol/L Potassium 3.5 (3.5-5.1) mmol/L Chloride 94 L (98-107) mmol/L Carbon Dioxide 26 (22-29) mmol/L Anion Gap 19.5 H (5-19) BUN 9 (6-20) mg/dL Creatinine 0.8 (0.5-0.9) mg/dL GFR Calculation 89.7 L (90-130) mL/min Glucose 106 (65-115) mg/dL Calculated Osmolal ity 281 L (285-295) mOsm/k g Calcium 9.9 (8.5-10.5) mg/dL Total Bilirubin 0.6 (0.15-1.2) mg/dL AST 20 (0-32) U/L ALT 30 (0-33) U/L Alkaline Phosphata se 69 (35-105) IU/L Total Protein 7.7 (6.6-8.7) g/dL Albumin 5.0 (3.5-5.2) g/dL Globulin 2.7 (1.3-4.6) g/dL Discharge Plan Discharge Patient Disposition: Home Clinical Impression: Cannabinoid hyperemesis syndrome Condition: Stable Prescriptions: New ondansetron 4 mg tablet,disintegrating 4 mg PO Q8H Qty: 21 RF: 0 No Action chlorpromazine 25 mg tablet 25 mg PO TID Qty: 10 RF: 0 Tylenol Extra Strength 500 mg Tablet 1,000 mg PO PRN RF: 0 ibuprofen 200 mg Tablet 600 mg PO PRN RF: 0 ondansetron HCl [Zofran] 4 mg tablet 4 mg PO Q6H PRN (Reason: nausea and vomiting) Qty: 15 RF: 0 lorazepam [Ativan] 1 mg tablet 1 mg PO Q6H PRN (Reason: nausea and vomiting) Qty: 10 RF: 0 promethazine 25 mg tablet 25 mg PO Q6H PRN (Reason: nausea and vomiting) Qty: 14 RF: 0 metoclopramide HCl [Reglan] 10 mg tablet 10 mg PO Q6H PRN (Reason: nausea and vomiting) Qty: 20 RF: 0 Zofran 4 mg tablet 4 mg PO Q8H Qty: 15 RF: 0 Discharge Orders: Discharge ED (Routine); Ordered 04/20/20 Ordered By: Tony Villanueva Referrals: Aureliano Rodas MD [Primary Care Provider] - Discharge Diet: Advance as tolerated Discharge Activity: Increase activity as tolerated Patient Instructions: Acute Nausea and Vomiting (ED) Activity Restrictions/Additional Instructions: Follow-up with medical provider as directed in 7 to 10 days for reevaluation. Take medications as prescribed. Sending you with a prescription for dissolvable Zofran tablet. Cessation of marijuana important to prevent any future episodes. Drink plenty fluids and stay hydrated. Return to the ER or your medical provider if condition worsens. Please read and understand discharge instructions. If any questions, please ask. Coding Level of Care Code ED Volunteer Services Specialist for [facility] F[facility] Exam Comprehensive
[2020-04-20 07:57] LABS: Basophils % 0.1 %; Hematocrit 42.5 % (37.0-47.0); Hemoglobin 14.3 g/dL (11.5-15.3); Lymphocytes # 0.7 10^3/uL (0.8-4.8); Lymphocytes % 6.8 %; Mean Corpuscular HGB Conc 33.6 g/dL (30.0-36.0); Mean Corpuscular Volume 89.1 fL (81-99); Mean Platelet Volume 10.8 fL (7.4-10.4); Monocytes # 0.2 10^3/uL (0.2-0.9); Monocytes % 1.9 %; Neutrophils # 9.23 10^3/uL (1.8-7.7); Neutrophils % 90.8 %; Nucleated Red Blood Cells % 0 %; Platelet Count 231 10^3/cmm (130-400); Red Blood Count 4.77 10^6/uL (4.1-5.3); Red Cell Distribution Width 12.6 % (12.1-15.1); White Blood Count 10.2 10^3/uL (4.0-10.0)
[2020-04-20] MEDS: sodium chloride 0.9% 1,000 ML 999 ML IV (07:58)
[2020-04-20] MEDS: haloperidol inj 5 mg/mL INJ 1 mL 3 MG IVP (07:59)
[2020-04-20] MEDS: LORazepam 2 mg/mL INJ 1 mL IVP (08:01)
[2020-04-20] MEDS: HYDROmorphone 1 mg/mL INJ 1 mL 0.5 MG IVP (08:04)
[2020-04-20 08:13] VITALS: BP 129/71; PULSE 60; RESP 18; O2SAT 95
[2020-04-20 08:15] LABS: Alanine Aminotransferase 30 U/L (0-33); Alkaline Phosphatase 69 IU/L (35-105); Anion Gap 19.5 (5-19); Aspartate Amino Transferase 20 U/L (0-32); Blood Urea Nitrogen 9 mg/dL (6-20); Calcium 9.9 mg/dL (8.5-10.5); Carbon Dioxide 26 mmol/L (22-29); Chloride 94 mmol/L (98-107); Globulin 2.7 g/dL (1.3-4.6); Glomerular Filtration Rate 89.7 mL/min (90-130); Glucose 106 mg/dL (65-115); Osmolality Calculated 281 mOsm/kg (285-295); Potassium 3.5 mmol/L (3.5-5.1); Sodium 136 mmol/L (136-145); Total Bilirubin 0.6 mg/dL (0.15-1.2); Total Protein 7.7 g/dL (6.6-8.7)
[2020-04-20 09:13] VITALS: BP 98/54; PULSE 88; RESP 18; O2SAT 98
[2020-04-20 09:45] VITALS: BP 98/54; PULSE 88; RESP 18; O2SAT 98
== END 2020-04-20 10:00 | disposition home or self-care (01) ==
PROVIDERS: Emergency Provider Physician Assistant; PCP Family Medicine
DX: R11.2 Nausea with vomiting, unspecified (principal); F12.90 Cannabis use, unspecified, uncomplicated
CPT/HCPCS: 12345; 80053; 85025; 96361; 96374; 96375; 99283; J1170; J1630; J2060; J7030

== ENCOUNTER 2020-06-03 08:25 | Emergency (ER) | payer MEDICAID, SELFPAY ==
[2020-06-03 08:29] VITALS: BP 123/80; PULSE 87; RESP 16; TEMP 36.7; O2SAT 97; BMI 21.4
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
[2020-06-03] MEDS: ketorolac 60 mg/2 mL INJ IM (08:59)
[2020-06-03 09:21] VITALS: RESP 18
== END 2020-06-03 09:17 | disposition home or self-care (01) ==
PROVIDERS: Emergency Provider Physician Assistant; PCP Family Medicine
DX: M25.511 Pain in right shoulder (principal)
CPT/HCPCS: 12345; 73030; 96372; 99281; 99283; J1885

== ENCOUNTER 2020-06-11 18:49 | Emergency (ER) | payer MEDICAID, SELFPAY ==
[2020-06-11 19:17] VITALS: BP 117/76; PULSE 52; RESP 14; TEMP 36.9; O2SAT 99; BMI 22.9
--- NOTE | 2020-06-11 20:05 | W.ED.NAVMDI ---
HPI - Nausea/Vomiting/Diarrhea General: Chief complaint: Nausea/Vomiting/Diarrhea Stated complaint: vomiting 2 days Time Seen by Provider: 06/11/20 20:00 Source: patient Mode of arrival: ambulatory Limitations: no limitations History of Present Illness: HPI Narrative: Patient is a 24-year-old female who presents to ED today with a complaint of nausea and vomiting. She tells me she has a history of cyclic vomiting syndrome and states her symptoms today feel identical. Patient is a heavy cannabis user. She has been told by multiple providers that they feel this is most likely contributing to her symptoms however patient is in denial regarding this. Patient states she has had nausea and vomiting for 3 days now. She is not having any bloody emesis. She does not complain of abdominal pain at this time. She has no changes in bowel movements. No fevers. No urinary symptoms at this time. MD elicited complaint: nausea and vomiting Pertinent past history: cyclical vomiting Onset (ago): day(s) Associated nausea: Yes Associated abdominal pain: No Severity: moderate Relieving factors: hot shower/bath and other (marijuana ) Associated symtoms: Reports nausea; Denies change in vision, chest pain, dysuria, fatigue, headache(s) or malaise Review of Systems Const: Denies: fever(s), chills, body aches, fatigue or malaise Eyes: Denies: change in vision ENMT: Denies: throat pain, odynophagia or hoarseness Card: Denies: chest pain Resp: Denies: dyspnea GI: Reports: nausea and vomiting; Denies: abdominal pain, diarrhea, change in bowel habits or change in stool character : Denies: flank pain or dysuria Musc: Denies: neck pain, back pain or joint pain Skin/Breast: Denies: rash Neuro: Denies: headache(s) PFSH ED PFSH: Medical History (Updated 06/11/20 @ 21:20 by SIOBHAN Krishna) Cannabinoid hyperemesis syndrome Cannabis hyperemesis syndrome concurrent with and due to cannabis abuse Surgical History S/P tonsillectomy and adenoidectomy Family History Mother Cyclical vomiting Social History Smoking and tobacco status: never smoked Alcohol intake: never Lives independently: Yes Housing: House Marital status: Single 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, 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: Date of last menstrual period: 06/03/20 Physical Exam Const: COMMON NORMALS: no acute distress, average body habitus, patient oriented x3, no limitations, healthy appearing, alert and well nourished GENERAL APPEARANCE: cooperative ORIENTATION/CONSCIOUSNESS: Yes awake, Yes oriented to person, Yes oriented to place and Yes oriented to time OTHER: appears nauseous HENMT: COMMON NORMALS: normocephalic and atraumatic HEAD & SCALP: normocephalic and atraumatic Resp: COMMON NORMALS: normal respiratory effort and clear to auscultation bilaterally AUSCULTATION: clear to auscultation bilaterally Cardio: COMMON NORMALS: regular rate and regular rhythm RATE: regular rate RHYTHM: regular rhythm GI: COMMON NORMALS: Normal to inspection, nondistended, normoactive bowel sounds present, Soft to palpation, non-tender, No hepatosplenomegaly present and no masses PALPATION: Yes Soft to palpation and Yes No hepatosplenomegaly present : COMMON NORMALS: Yes no CVA tenderness BLADDER/KIDNEY EXAM: Yes no CVA tenderness Back/Pelvis: COMMON NORMALS: no CVA tenderness Neuro: [place] COMA SCALE: document GCS findings [place] coma scale eye opening: Spontaneous [place] coma scale verbal response: Orientated [place] coma scale motor response: [place] commands [place] coma scale total score: 15 COMMON NORMALS: patient oriented x3 SENSORIUM/ORIENTATION: Yes alert, Yes oriented to person, Yes oriented to place and Yes oriented to time Skin: COMMON NORMALS: no rashes or lesions noted GENERAL SKIN EXAM: no rashes or lesions noted Course Reevaluation(s): Reevaluation #1: Patient is resting comfortable in NAD. Time: 21:11 Vital Signs: Vital signs: Vital Signs Temperature 98.4 F 06/11/20 19:17 Pulse Rate 58 L 06/11/20 20:16 Respiratory Rate 19 H 06/11/20 20:34 Blood Pressure 122/51 06/11/20 20:16 Pulse Oximetry 98 06/11/20 20:34 MDM - Nausea/Vomiting/Diarrhea MDM Narrative: Medical decision making narrative: Patient is resting comfortably in no acute distress. She has not had any further episodes of nausea and vomiting while here. She has a very mild elevation in anion gap. 3+ urine ketones. She was given 1.5L NS here. She has mild elevations to her LFTs-these have been present previously. She has no abdominal pain. Patient tells me she feels comfortable going home. She states she has Zofran she may take at home as needed. Marijuana cessation discussed although I think it is unlikely she will take this advice. Lab Data: Labs: Lab Results 06/11/20 06/11/20 06/11/20 Range/Units 20:40 20:40 20:40 WBC 11.9 H (4.0-10.0) 10^3/ uL RBC 4.25 (4.1-5.3) 10^6/u L Hgb 12.8 (11.5-15.3) g/dL Hct 37.3 (37.0-47.0) % MCV 87.8 (81-99) fL MCH 30.1 (28.0-34.0) pg MCHC 34.3 (30.0-36.0) g/dL RDW 12.1 (12.1-15.1) % Plt Count 358 (130-400) 10^3/c mm MPV 10.7 H (7.4-10.4) fL Neut % (Auto) 92.3 % Lymph % (Auto) 6.4 % [place] % (Auto) 0.9 % Eos % (Auto) 0.0 % Baso % (Auto) 0.1 % Neut # (Auto) 11.00 H (1.8-7.7) 10^3/u L Lymph # (Auto) 0.8 (0.8-4.8) 10^3/u L [place] # (Auto) 0.1 L (0.2-0.9) 10^3/u L Eos # (Auto) 0.0 (0.0-0.8) 10^3/u L Baso # (Auto) 0.0 (0.0-0.1) 10^3/u L Nucleated RBC % (a uto) 0 % Nucleated RBCs # 0.0 /100WBC Sodium 136 (136-145) mmol/L Potassium 3.7 (3.5-5.1) mmol/L Chloride 98 (98-107) mmol/L Carbon Dioxide 22 (22-29) mmol/L Anion Gap 19.7 H (5-19) BUN 12 (6-20) mg/dL Creatinine 0.9 (0.5-0.9) mg/dL GFR Calculation 78.3 L (90-130) mL/min Glucose 124 H (65-115) mg/dL Calculated Osmolal ity 283 L (285-295) mOsm/k g Calcium 9.7 (8.5-10.5) mg/dL Total Bilirubin 0.6 (0.15-1.2) mg/dL AST 39 H (0-32) U/L ALT 40 H (0-33) U/L Alkaline Phosphata se 73 (35-105) IU/L Total Protein 8.4 (6.6-8.7) g/dL Albumin 4.7 (3.5-5.2) g/dL Globulin 3.7 (1.3-4.6) g/dL Lipase 10 L (13-60) U/L HCG, Qual Negative (Negative) Urine Color (Yellow) Urine Appearance (CLEAR) Urine pH (5-7) Ur Specific Gravit y (1.005-1.030) Urine Protein (Negative) Urine Glucose (UA) (Normal) Urine Ketones (Negative) Urine Blood (Negative) Urine Nitrate (Negative) Urine Bilirubin (Negative) Urine Urobilinogen (Negative) mg/dL Ur Leukocyte Una ase (Negative) 06/11/20 Range/Units 20:40 WBC (4.0-10.0) 10^3/ uL RBC (4.1-5.3) 10^6/u L Hgb (11.5-15.3) g/dL Hct (37.0-47.0) % MCV (81-99) fL MCH (28.0-34.0) pg MCHC (30.0-36.0) g/dL RDW (12.1-15.1) % Plt Count (130-400) 10^3/c mm MPV (7.4-10.4) fL Neut % (Auto) % Lymph % (Auto) % [place] % (Auto) % Eos % (Auto) % Baso % (Auto) % Neut # (Auto) (1.8-7.7) 10^3/u L Lymph # (Auto) (0.8-4.8) 10^3/u L [place] # (Auto) (0.2-0.9) 10^3/u L Eos # (Auto) (0.0-0.8) 10^3/u L Baso # (Auto) (0.0-0.1) 10^3/u L Nucleated RBC % (a uto) % Nucleated RBCs # /100WBC Sodium (136-145) mmol/L Potassium (3.5-5.1) mmol/L Chloride (98-107) mmol/L Carbon Dioxide (22-29) mmol/L Anion Gap (5-19) BUN (6-20) mg/dL Creatinine (0.5-0.9) mg/dL GFR Calculation (90-130) mL/min Glucose (65-115) mg/dL Calculated Osmolal ity (285-295) mOsm/k g Calcium (8.5-10.5) mg/dL Total Bilirubin (0.15-1.2) mg/dL AST (0-32) U/L ALT (0-33) U/L Alkaline Phosphata se (35-105) IU/L Total Protein (6.6-8.7) g/dL Albumin (3.5-5.2) g/dL Globulin (1.3-4.6) g/dL Lipase (13-60) U/L HCG, Qual (Negative) Urine Color Yellow (Yellow) Urine Appearance Clear (CLEAR) Urine pH 6 (5-7) Ur Specific Gravit y 1.015 (1.005-1.030) Urine Protein Neg (Negative) Urine Glucose (UA) Norm (Normal) Urine Ketones 3+ H (Negative) Urine Blood Neg (Negative) Urine Nitrate Negative (Negative) Urine Bilirubin Neg (Negative) Urine Urobilinogen Norm (Negative) mg/dL Ur Leukocyte Una ase Negative (Negative) Discharge Plan Discharge Patient Disposition: Home Clinical Impression: Cannabinoid hyperemesis syndrome Condition: Stable Prescriptions: No Action chlorpromazine 25 mg tablet 25 mg PO TID Qty: 10 RF: 0 Tylenol Extra Strength 500 mg Tablet 1,000 mg PO PRN RF: 0 ibuprofen 200 mg Tablet 600 mg PO PRN RF: 0 ondansetron 4 mg tablet,disintegrating 4 mg PO Q8H Qty: 21 RF: 0 ondansetron HCl [Zofran] 4 mg tablet 4 mg PO Q6H PRN (Reason: nausea and vomiting) Qty: 15 RF: 0 lorazepam [Ativan] 1 mg tablet 1 mg PO Q6H PRN (Reason: nausea and vomiting) Qty: 10 RF: 0 promethazine 25 mg tablet 25 mg PO Q6H PRN (Reason: nausea and vomiting) Qty: 14 RF: 0 metoclopramide HCl [Reglan] 10 mg tablet 10 mg PO Q6H PRN (Reason: nausea and vomiting) Qty: 20 RF: 0 Zofran 4 mg tablet 4 mg PO Q8H Qty: 15 RF: 0 Discharge Orders: Discharge ED (Routine); Ordered 06/11/20 Ordered By: Komal Kilpatrick Referrals: Aureliano Rodas MD [Primary Care Provider] - Patient Instructions: Medicinal Use of Cannabis (ED) Coding Level of Care Code ED Dice Spotter for Judyg Fwd Exam Comprehensive
[2020-06-11 20:16] VITALS: BP 122/51; PULSE 58; RESP 19; O2SAT 100
[2020-06-11] MEDS: ondansetron 2 mg/ML SDV 2 mL 4 MG IVP (20:30)
[2020-06-11] MEDS: LORazepam 2 mg/mL INJ 1 mL 1 MG IVP (20:32)
[2020-06-11 20:34] VITALS: RESP 19; O2SAT 98
[2020-06-11] MEDS: HYDROmorphone 1 mg/mL INJ 1 mL 0.5 MG IVP (20:34)
[2020-06-11] MEDS: haloperidol inj 5 mg/mL INJ 1 mL IVP (20:36)
[2020-06-11 20:51] LABS: Basophils % 0.1 %; Hematocrit 37.3 % (37.0-47.0); Hemoglobin 12.8 g/dL (11.5-15.3); Lymphocytes # 0.8 10^3/uL (0.8-4.8); Lymphocytes % 6.4 %; Mean Corpuscular HGB Conc 34.3 g/dL (30.0-36.0); Mean Corpuscular Hemoglobin 30.1 pg (28.0-34.0); Mean Corpuscular Volume 87.8 fL (81-99); Mean Platelet Volume 10.7 fL (7.4-10.4); Monocytes # 0.1 10^3/uL (0.2-0.9); Monocytes % 0.9 %; Neutrophils % 92.3 %; Nucleated Red Blood Cells % 0 %; Platelet Count 358 10^3/cmm (130-400); Red Blood Count 4.25 10^6/uL (4.1-5.3); Red Cell Distribution Width 12.1 % (12.1-15.1); White Blood Count 11.9 10^3/uL (4.0-10.0)
[2020-06-11] MEDS: sodium chloride 0.9% 1,000 ML 999 ML IV (20:51)
[2020-06-11 20:54] LABS: Add Urine Microscopic? NO
[2020-06-11 20:59] LABS: Bilirubin Urine Neg (Negative); Blood Urine Neg (Negative); Glucose Urine UA Norm (Normal); Ketones Urine 3+ (Negative); Leukocyte Esterase Urine Negative (Negative); Nitrate Urine Negative (Negative); Protein Urine Neg (Negative); Specific Gravity, Urine 1.015 (1.005-1.030); Urine Appearance Clear (CLEAR); Urine Color Yellow (Yellow); Urobilinogen Urine Norm (Negative); pH Urine 6 (5-7)
[2020-06-11 21:01] LABS: HCG, Serum Qual Negative (Negative)
[2020-06-11 21:07] LABS: Alanine Aminotransferase 40 U/L (0-33); Albumin Level 4.7 g/dL (3.5-5.2); Alkaline Phosphatase 73 IU/L (35-105); Anion Gap 19.7 (5-19); Aspartate Amino Transferase 39 U/L (0-32); Blood Urea Nitrogen 12 mg/dL (6-20); Calcium 9.7 mg/dL (8.5-10.5); Carbon Dioxide 22 mmol/L (22-29); Chloride 98 mmol/L (98-107); Globulin 3.7 g/dL (1.3-4.6); Glomerular Filtration Rate 78.3 mL/min (90-130); Glucose 124 mg/dL (65-115); Lipase 10 U/L (13-60); Osmolality Calculated 283 mOsm/kg (285-295); Potassium 3.7 mmol/L (3.5-5.1); Sodium 136 mmol/L (136-145); Total Bilirubin 0.6 mg/dL (0.15-1.2); Total Protein 8.4 g/dL (6.6-8.7)
[2020-06-11 21:34] VITALS: BP 103/44; PULSE 93; RESP 18; O2SAT 100
== END 2020-06-11 21:35 | disposition home or self-care (01) ==
PROVIDERS: Emergency Provider Physician Assistant; PCP Family Medicine
DX: R11.2 Nausea with vomiting, unspecified (principal); F12.90 Cannabis use, unspecified, uncomplicated
CPT/HCPCS: 12345; 80053; 81003; 83690; 84703; 85025; 96361; 96374; 96375; 99283; J1170; J1630; J2060; J2405; J7030

== ENCOUNTER 2020-06-14 11:54 | Emergency (ER) | payer MEDICAID, SELFPAY ==
[2020-06-14 12:04] VITALS: BP 97/51; PULSE 73; RESP 16; TEMP 37.1; O2SAT 18; BMI 22.9
--- NOTE | 2020-06-14 12:14 | ED_ITS ---
HPI - Nausea/Vomiting/Diarrhea General: Chief complaint: Nausea/Vomiting/Diarrhea Stated complaint: N/V X 4 DAYS Time Seen by Provider: 06/14/20 12:08 History of Present Illness: HPI Narrative: Patient complains about flareup of her cannabis hyperemesis syndrome. Said the medicine she received here in the ER other day helped for about a couple days but has come back now. Patient states her flareups usually last around 8 days. Denies any fever or chills. Does complain nausea and vomiting. MD elicited complaint: nausea and vomiting Pertinent past history: cyclical vomiting Onset (ago): day(s) Description of vomiting: food contents and watery Associated nausea: Yes Associated abdominal pain: Yes Location of pain: Diffuse Severity: moderate Quality: cramping Exacerbating factors: eating Relieving factors: none Context: marijuana use Associated symtoms: Reports no associated symptoms and nausea; Denies anxiety, change in vision, chest pain or headache(s) Review of Systems Const: Denies: fever(s), chills or body aches Eyes: Denies: change in vision or blurry vision ENMT: Denies: throat pain or nasal congestion Card: Denies: chest pain or dyspnea on exertion Resp: Denies: dyspnea, productive cough or non-productive cough GI: Reports: nausea and vomiting Musc: Denies: extremity pain Skin/Breast: Denies: rash Neuro: Denies: headache(s) Psych: Denies: anxiety or depression Woo/Lymph: Denies: easy bruising PFSH ED PFSH: Medical History (Updated 06/11/20 @ 21:20 by SIOBHAN Krishna) Cannabinoid hyperemesis syndrome Cannabis hyperemesis syndrome concurrent with and due to cannabis abuse Surgical History S/P tonsillectomy and adenoidectomy Family History Mother Cyclical vomiting Social History Smoking and tobacco status: never smoked Alcohol intake: never Lives independently: Yes Housing: House Marital status: Single 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, 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: Date of last menstrual period: 06/10/20 Physical Exam Const: COMMON NORMALS: no acute distress, average body habitus and patient oriented x3 HENMT: COMMON NORMALS: normocephalic HEAD & SCALP: normal to inspection and normocephalic FACE & SINUS: normal facial exam Eye: COMMON NORMALS: conjunctivae normal GENERAL EYE: appearance normal, both eyes and all related structures CONJUNCTIVA: Yes conjunctivae normal Neck/C-Spine: COMMON NORMALS: no JVD Chest: COMMONS NORMALS: normal inspection of the chest Resp: COMMON NORMALS: normal respiratory effort and clear to auscultation bilaterally AUSCULTATION: clear to auscultation bilaterally Cardio: COMMON NORMALS: no JVD, regular rate and regular rhythm RATE: regular rate RHYTHM: regular rhythm GI: COMMON NORMALS: Normal to inspection, nondistended, normoactive bowel sounds present Extremity: COMMON NORMALS: normal to inspection and full ROM Neuro: COMMON NORMALS: patient oriented x3 Course Vital Signs: Vital signs: Vital Signs Temperature 98.8 F 06/14/20 12:04 Pulse Rate 73 06/14/20 12:04 Respiratory Rate 16 06/14/20 12:04 Blood Pressure 97/51 06/14/20 12:04 Pulse Oximetry 18 L 06/14/20 12:04 Discharge Plan Discharge Prescriptions: No Action chlorpromazine 25 mg tablet 25 mg PO TID Qty: 10 RF: 0 Tylenol Extra Strength 500 mg Tablet 1,000 mg PO PRN RF: 0 ibuprofen 200 mg Tablet 600 mg PO PRN RF: 0 ondansetron 4 mg tablet,disintegrating 4 mg PO Q8H Qty: 21 RF: 0 ondansetron HCl [Zofran] 4 mg tablet 4 mg PO Q6H PRN (Reason: nausea and vomiting) Qty: 15 RF: 0 lorazepam [Ativan] 1 mg tablet 1 mg PO Q6H PRN (Reason: nausea and vomiting) Qty: 10 RF: 0 promethazine 25 mg tablet 25 mg PO Q6H PRN (Reason: nausea and vomiting) Qty: 14 RF: 0 metoclopramide HCl [Reglan] 10 mg tablet 10 mg PO Q6H PRN (Reason: nausea and vomiting) Qty: 20 RF: 0 Zofran 4 mg tablet 4 mg PO Q8H Qty: 15 RF: 0 Coding Level of Care Code ED Planishing Hammer Operator for Chg Fwd
[2020-06-14] MEDS: sodium chloride 0.9% 1,000 ML 999 ML IV (12:40)
[2020-06-14] MEDS: promethazine 25 mg/mL SDV 1 mL IM (12:42)
[2020-06-14 12:43] LABS: Add Urine Microscopic? NO
[2020-06-14] MEDS: LORazepam 2 mg/mL INJ 1 mL IVP (12:46)
[2020-06-14 12:48] LABS: Basophils % 0.1 %; Eosinophils % 0.1 %; Hematocrit 35.4 % (37.0-47.0); Hemoglobin 12.2 g/dL (11.5-15.3); Lymphocytes % 12.2 %; Mean Corpuscular HGB Conc 34.5 g/dL (30.0-36.0); Mean Platelet Volume 10.6 fL (7.4-10.4); Monocytes # 0.1 10^3/uL (0.2-0.9); Monocytes % 1.6 %; Neutrophils # 7.09 10^3/uL (1.8-7.7); Neutrophils % 85.6 %; Nucleated Red Blood Cells % 0 %; Platelet Count 318 10^3/cmm (130-400); Red Blood Count 4.07 10^6/uL (4.1-5.3); White Blood Count 8.3 10^3/uL (4.0-10.0)
[2020-06-14] MEDS: SUMAtriptan 6 mg/0.5 mL SDV SUBCUT (12:50)
[2020-06-14 13:00] LABS: Bilirubin Urine Neg (Negative); Blood Urine Neg (Negative); Glucose Urine UA Norm (Normal); Ketones Urine Negative (Negative); Leukocyte Esterase Urine Negative (Negative); Nitrate Urine Negative (Negative); Protein Urine Neg (Negative); Specific Gravity, Urine 1.015 (1.005-1.030); Urine Appearance Clear (CLEAR); Urine Color Yellow (Yellow); Urobilinogen Urine Norm (Negative); pH Urine 6.5 (5-7)
[2020-06-14 13:09] LABS: Alanine Aminotransferase 32 U/L (0-33); Albumin Level 4.4 g/dL (3.5-5.2); Alkaline Phosphatase 63 IU/L (35-105); Anion Gap 15.7 (5-19); Aspartate Amino Transferase 21 U/L (0-32); Blood Urea Nitrogen 6 mg/dL (6-20); Calcium 9.1 mg/dL (8.5-10.5); Carbon Dioxide 24 mmol/L (22-29); Chloride 102 mmol/L (98-107); Creatinine Clr Calc Pharmacy 130.8214; Globulin 3.1 g/dL (1.3-4.6); Glomerular Filtration Rate 104.6 mL/min (90-130); Glucose 105 mg/dL (65-115); Lipase 15 U/L (13-60); Osmolality Calculated 284 mOsm/kg (285-295); Potassium 3.7 mmol/L (3.5-5.1); Sodium 138 mmol/L (136-145); Total Bilirubin 0.3 mg/dL (0.15-1.2); Total Protein 7.5 g/dL (6.6-8.7)
[2020-06-14 14:21] VITALS: BP 110/60; PULSE 77; RESP 16; O2SAT 100
== END 2020-06-14 14:22 | disposition home or self-care (01) ==
PROVIDERS: Emergency Provider Nurse Practitioner Family; PCP Family Medicine
DX: R11.2 Nausea with vomiting, unspecified (principal)
CPT/HCPCS: 80053; 81003; 83690; 85025; 96361; 96372; 96374; 99283; J2060; J2550; J3030; J7030

== ENCOUNTER 2020-08-18 12:01 | Emergency (ER) | payer MEDICAID, SELFPAY ==
[2020-08-18 12:05] VITALS: BMI 23.6
[2020-08-18 12:10] VITALS: BP 110/59; PULSE 69; RESP 18; TEMP 36.8; O2SAT 100
--- NOTE | 2020-08-18 12:11 | CTR_ITS ---
PROCEDURE INFORMATION: Exam: CT Head Without Contrast Exam date and time: 08/18/2020 12:17 PM Age: 24 years old Clinical indication: Injury or trauma; Fall; Blunt trauma (contusions or hematomas); Additional info: Head injury. Right eyebrow lac TECHNIQUE: Imaging protocol: Computed tomography of the head without contrast. Sagittal and coronal reformatted images were created and reviewed. Radiation optimization: All CT scans at this facility use at least one of these dose optimization techniques: automated exposure control; mA and/or kV adjustment per patient size (includes targeted exams where dose is matched to clinical indication); or iterative reconstruction. COMPARISON: CT head wo con* [id number] 02/28/2019 7:01 PM RADIATION DOSE METRICS: Total DLP (mGy-cm): 895.42 FINDINGS: Brain: No acute intracranial hemorrhage. No acute infarct. No intra-axial or extra-axial masses. Farley-white matter differentiation is preserved. No cerebral edema. No extra-axial fluid collections. No midline shift. No evidence for Chiari 1 malformation. Cerebral ventricles: No hydrocephalus. Bones/joints: No acute fracture. Paranasal sinuses: Visualized sinuses are unremarkable. No fluid levels. Mastoid air cells: Unremarkable as visualized. Orbital cavity: No acute abnormality in the visualized orbits. Soft tissues: Right supraorbital laceration/mild contusion. CT/CT head wo con* [id number] IMPRESSION: 1. No acute abnormality of the brain. 2. Right supraorbital laceration/mild contusion. 3. Incidental/nonacute findings are listed in the report. The Radiation Dose CTDIVOL = (mGy): DLP = 895.42 (mGy-cm)
--- NOTE | 2020-08-18 12:11 | ECG_ITS ---
[facility] Test Date: 2020-08-18 Pat Name: Deven Michael Department: Room: Gender: Female Press Setter: : 1995 Requested By: Emil Acuña Order Number: [id number] Heaton MD: Amy Pagan M.D. Measurements Intervals [place] Rate: 73 P: 24 DC: 128 QRS: 47 QRSD: 97 T: 15 QT: 356 QTc: 392 Interpretive Statements SINUS RHYTHM Compared to ECG 02/23/2020 10:22:11 Sinus arrhythmia no longer present T-wave abnormality no longer present Possible ischemia no longer present Electronically Signed On 08-19-2020 10:37:28 CDT by Amy Pagan M.D. [id number]
[2020-08-18 12:24] LABS: Basophils % 0.2 %; Eosinophils % 0.1 %; Lymphocytes # 2.4 10^3/uL (0.8-4.8); Lymphocytes % 25.9 %; Mean Corpuscular HGB Conc 32.5 g/dL (30.0-36.0); Mean Corpuscular Hemoglobin 29.2 pg (28.0-34.0); Mean Corpuscular Volume 89.9 fL (81-99); Mean Platelet Volume 10.6 fL (7.4-10.4); Monocytes # 0.6 10^3/uL (0.2-0.9); Monocytes % 6.1 %; Neutrophils % 67.5 %; Nucleated Red Blood Cells % 0 %; Platelet Count 321 10^3/cmm (130-400); Red Blood Count 4.45 10^6/uL (4.1-5.3); Red Cell Distribution Width 12.9 % (12.1-15.1); White Blood Count 9.3 10^3/uL (4.0-10.0)
[2020-08-18] MEDS: sodium chloride 0.9% 1,000 ML 999 ML IV (12:24)
[2020-08-18 12:30] LABS: HCG, Serum Qual Negative (Negative)
--- NOTE | 2020-08-18 12:32 | CTR_ITS ---
PROCEDURE INFORMATION: Exam: CT Orbits Without Contrast Exam date and time: 08/18/2020 12:41 PM Age: 24 years old Clinical indication: Injury or trauma; Fall; Blunt trauma (contusions or hematomas); Forehead; Additional info: Fall. Right eyebrow laceration TECHNIQUE: Imaging protocol: Computed tomography images of the orbits without contrast. Sagittal and coronal reformatted images were created and reviewed. Radiation optimization: All CT scans at this facility use at least one of these dose optimization techniques: automated exposure control; mA and/or kV adjustment per patient size (includes targeted exams where dose is matched to clinical indication); or iterative reconstruction. COMPARISON: CT head wo con* [id number] 02/28/2019 7:01 PM RADIATION DOSE METRICS: Total DLP (mGy-cm): 461.24 FINDINGS: Orbital cavity: Globes and lenses, extraocular muscles, and optic nerves are intact bilaterally. No acute intraorbital abnormality. Paranasal sinuses: Paranasal sinuses are clear. Mastoid air cells: Visualized mastoid air cells are clear. Bones/joints: Right and left temporomandibular joints are intact. Right and left pterygoid plates are intact. Mild right nasal septal deviation. Age-indeterminate nondisplaced fractures of the right and left nasal bones. Soft tissues: Right supraorbital laceration/small contusion. No radiopaque foreign body. CT/CT orbit BI wo con* [id number] IMPRESSION: 1. Age-indeterminate nondisplaced fractures of the right and left nasal bones. Recommend correlation with symptoms of pain in these areas. 2. Right supraorbital laceration/small contusion. 3. Incidental/nonacute findings are listed in the report. Radiation Dose CTDIVOL = (mGy): DLP = 461.24 (mGy-cm)
--- NOTE | 2020-08-18 12:33 | W.ED.SYNCOPE ---
HPI - Syncope General: Chief Complaint: Syncope Stated Complaint: SYNCOPE; HEAD LAC Time Seen by Provider: 08/18/20 12:03 History of Present Illness: HPI narrative: The patient is a 24-year-old female with past medical history multiple syncopal events in the past. She has not seen a putaway driver about this. She says she sometimes gets hypoglycemic and passes out. Today's episode she was at work and went to the bathroom to urinate and when she stood up she felt lightheaded and passed out hitting her right face on a drain pipe. She has a 7 cm laceration extending to the superior dye, eyebrow, and forehead. It is shaped irregularly. She does not remember her last tetanus shot. She says she does not know how long she was out however she suspects it was 30 seconds. Bystanders who found her saw her shaking so she is worried that she had a seizure. She had no postictal or confusion after the event. She says she did not eat dinner last night or this morning no food. She says she does drink liquids. complaint: loss of consciousness and felt faint Onset (ago): minute(s) (.5) Prodromal symptoms: lightheaded Context: after urination and standing up Injuries sustained associated with event: face Associated symptoms: Reports headache(s); Deny abdominal pain or chest pain Review of Systems General: Reports: 10 or more systems reviewed and unremarkable except in HPI and below Const: Denies: fatigue Eyes: Denies: change in vision, blurry vision or eye redness ENMT: Denies: throat pain, swelling of lips/tongue, ear or mastoid pain or nasal congestion Card: Denies: chest pain, palpitations, irregular heart rhythm, edema, dyspnea on exertion or orthopnea Resp: Denies: dyspnea, productive cough or non-productive cough GI: Denies: abdominal pain, diarrhea or GI cramping : Denies: flank pain, difficulty voiding, urinary frequency or urinary urgency Musc: Denies: neck pain, back pain, extremity pain, joint pain, joint redness, limited range of motion or muscle weakness Skin/Breast: Denies: rash, pruritus, erythema, skin pain or skin tenderness Neuro: Reports: headache(s); Denies: numbness in extremities, weakness in extremities, sensory changes, difficulty walking, dizziness, confusion or Slurred speech present Psych: Denies: anxiety or depression Endo: Denies: polyuria All/Imm: Denies: urticaria, throat swelling or tongue swelling PFSH ED PFSH: Medical History (Updated 08/18/20 @ 14:17 by Emil Acuña MD) Cannabinoid hyperemesis syndrome Cannabis hyperemesis syndrome concurrent with and due to cannabis abuse Surgical History S/P tonsillectomy and adenoidectomy Family History Mother Cyclical vomiting Social History Smoking and tobacco status: never smoked Alcohol intake: never Lives independently: Yes Housing: House Marital status: Single 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, works at night as [employer] Female 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 History: Date of last menstrual period: 07/15/20 Physical Exam Const: COMMON NORMALS: no acute distress, average body habitus, patient oriented x3, no limitations, healthy appearing, alert and well nourished GENERAL APPEARANCE: cooperative, comfortable, well kempt and well developed ORIENTATION/CONSCIOUSNESS: Yes awake, Yes oriented to person, Yes oriented to place and Yes oriented to time HENMT: COMMON NORMALS: normocephalic, external ears normal and Normal external nose present HEAD & SCALP: normal to inspection and normocephalic NOSE: Normal external nose present EXTERNAL EAR: Yes external ears normal MOUTH: Normal oral and palatal mucosa present THROAT: posterior oropharynx normal Eye: COMMON NORMALS: Equal, round and reactive pupils present and EOMs intact bilaterally GENERAL EYE: appearance normal, both eyes and all related structures PUPIL: Yes Equal, round and reactive pupils present Neck/C-Spine: COMMON NORMALS: full ROM, no lymphadenopathy, no meningeal signs and no JVD GENERAL: Yes normal visual inspection Lymph: LYMPHATIC: no lymphadenopathy noted Chest: COMMONS NORMALS: normal inspection of the chest and normal palpation of entire chest wall Resp: COMMON NORMALS: normal respiratory effort, No retractions, No use of accessory muscles, clear to auscultation bilaterally and percussion normal EFFORT & INSPECTION: Yes able to speak in complete sentences AUSCULTATION: clear to auscultation bilaterally PERCUSSION: percussion normal Cardio: COMMON NORMALS: no JVD, regular rate, regular rhythm, S1 normal heart sound present, S2 normal heart sound present and Peripheral pulses 2+ throughout RATE: regular rate RHYTHM: regular rhythm HEART SOUNDS: S1 normal heart sound present and S2 normal heart sound present PERIPHERAL PULSES: Peripheral pulses 2+ throughout GI: COMMON NORMALS: Normal to inspection, nondistended, normoactive bowel sounds present, Soft to palpation, non-tender and no masses INSPECTION: Yes normal to inspection PALPATION: Yes Soft to palpation : COMMON NORMALS: Yes no CVA tenderness BLADDER/KIDNEY EXAM: Yes no CVA tenderness Back/Pelvis: COMMON NORMALS: no CVA tenderness, thoracic and lumbar spine normal to inspection, no thoracic nor lumbar tenderness and thoraco-lumbar ROM normal Extremity: COMMON NORMALS: normal to inspection, full ROM, capillary refill normal, no joint enlargement and no pedal edema GENERAL: Yes normal exam except as noted Neuro: COMMON NORMALS: patient oriented x3, CN's II-XII intact bilaterally, moves all extremities, no focal motor deficits, no sensory deficits noted and gait normal SENSORIUM/ORIENTATION: Yes alert, Yes oriented to person, Yes oriented to place and Yes oriented to time MENINGEAL SIGNS: Yes no meningeal signs Psych: COMMON NORMALS: mental status grossly normal, Normal thought process present, cooperative, normal affect and speech normal APPEARANCE: Yes well kempt ATTITUDE: Yes calm SPEECH: Yes normal speech THOUGHT PROCESS: Normal thought process present Skin: COMMON NORMALS: no rashes or lesions noted NARRATIVE SKIN EXAM: Normal except the patient has a 6 cm irregular protestant to the superior orbital skin through the right eyebrow extended to the right forehead area. It does appear deep. Not actively bleeding. GENERAL SKIN EXAM: no rashes or lesions noted Course Vital Signs: Vital signs: Vital Signs Temperature 98.2 F 08/18/20 12:10 Pulse Rate 84 08/18/20 14:06 Respiratory Rate 16 08/18/20 14:06 Blood Pressure 109/71 08/18/20 14:06 Pulse Oximetry 100 08/18/20 14:06 MDM - Syncope MDM Narrative: Medical decision making narrative: The patient and her mother request an evaluation by plastic surgeon to repair the laceration. I discussed with them that I could repair the laceration here but if they are demanding a plastic surgeon evaluation she could be transferred to [place] for evaluation. They do not want an ambulance transfer. They prefer to get the head CT done here and sign AGAINST MEDICAL ADVICE and drive to [place] likely to an emergency room there and ask for a plastic surgeon there. I discussed with him there at time limits on repairing lacerations and recommended that they again do it here however they refused. I recommended they drive straight to [place] to the nearest ER and they agree they will do just that. She was given a Keflex, a liter of fluids, and updated tetanus. Head CT is unremarkable except for the laceration. Old nasal fracture seen on orbital CT. She is not tender there. Return to ER at any time for evaluation Lab Data: Labs: Lab Results 08/18/20 08/18/20 08/18/20 Range/Units 12:03 12:03 12:03 WBC 9.3 (4.0-10.0) 10^3/ uL RBC 4.45 (4.1-5.3) 10^6/u L Hgb 13.0 (11.5-15.3) g/dL Hct 40.0 (37.0-47.0) % MCV 89.9 (81-99) fL MCH 29.2 (28.0-34.0) pg MCHC 32.5 (30.0-36.0) g/dL RDW 12.9 (12.1-15.1) % Plt Count 321 (130-400) 10^3/c mm MPV 10.6 H (7.4-10.4) fL Neut % (Auto) 67.5 % Lymph % (Auto) 25.9 % [place] % (Auto) 6.1 % Eos % (Auto) 0.1 % Baso % (Auto) 0.2 % Neut # (Auto) 6.30 (1.8-7.7) 10^3/u L Lymph # (Auto) 2.4 (0.8-4.8) 10^3/u L [place] # (Auto) 0.6 (0.2-0.9) 10^3/u L Eos # (Auto) 0.0 (0.0-0.8) 10^3/u L Baso # (Auto) 0.0 (0.0-0.1) 10^3/u L Nucleated RBC % (a uto) 0 % Nucleated RBCs # 0.0 /100WBC Sodium 137 (136-145) mmol/L Potassium 4.1 (3.5-5.1) mmol/L Chloride 104 (98-107) mmol/L Carbon Dioxide 24 (22-29) mmol/L Anion Gap 13.1 (5-19) BUN 8 (6-20) mg/dL Creatinine 0.7 (0.5-0.9) mg/dL GFR Calculation 104.6 (90-130) mL/min Glucose 130 H (65-115) mg/dL Calculated Osmolal ity 284 L (285-295) mOsm/k g Calcium 8.9 (8.5-10.5) mg/dL Total Bilirubin 0.4 (0.15-1.2) mg/dL AST 17 (0-32) U/L ALT 16 (0-33) U/L Alkaline Phosphata se 81 (35-105) IU/L Total Protein 7.9 (6.6-8.7) g/dL Albumin 4.4 (3.5-5.2) g/dL Globulin 3.5 (1.3-4.6) g/dL HCG, Qual Negative (Negative) Discharge Plan Discharge Patient Disposition: Left Against Medical Advice Clinical Impression: Syncope, Laceration of face Condition: Stable Prescriptions: No Action chlorpromazine 25 mg tablet 25 mg PO TID Qty: 10 RF: 0 Tylenol Extra Strength 500 mg Tablet 1,000 mg PO PRN RF: 0 ibuprofen 200 mg Tablet 600 mg PO PRN RF: 0 ondansetron 4 mg tablet,disintegrating 4 mg PO Q8H Qty: 21 RF: 0 ondansetron HCl [Zofran] 4 mg tablet 4 mg PO Q6H PRN (Reason: nausea and vomiting) Qty: 15 RF: 0 lorazepam [Ativan] 1 mg tablet 1 mg PO Q6H PRN (Reason: nausea and vomiting) Qty: 10 RF: 0 promethazine 25 mg tablet 25 mg PO Q6H PRN (Reason: nausea and vomiting) Qty: 14 RF: 0 metoclopramide HCl [Reglan] 10 mg tablet 10 mg PO Q6H PRN (Reason: nausea and vomiting) Qty: 20 RF: 0 Zofran 4 mg tablet 4 mg PO Q8H Qty: 15 RF: 0 Imitrex 50 mg tablet See Rx Instructions .ROUTE .COMPLEX Qty: 10 RF: 0 promethazine 25 mg tablet 25 mg PO TID PRN (Reason: nausea and vomiting) Qty: 14 RF: 0 Referrals: Aureliano Rodas MD [Primary Care Provider] - Patient Instructions: Opioid Safety Coding Level of Care Code ED Technology Methodology Consultant for Chg Fwd Exam Comprehensive
[2020-08-18 12:39] LABS: Alanine Aminotransferase 16 U/L (0-33); Albumin Level 4.4 g/dL (3.5-5.2); Alkaline Phosphatase 81 IU/L (35-105); Anion Gap 13.1 (5-19); Aspartate Amino Transferase 17 U/L (0-32); Blood Urea Nitrogen 8 mg/dL (6-20); Calcium 8.9 mg/dL (8.5-10.5); Carbon Dioxide 24 mmol/L (22-29); Chloride 104 mmol/L (98-107); Globulin 3.5 g/dL (1.3-4.6); Glomerular Filtration Rate 104.6 mL/min (90-130); Glucose 130 mg/dL (65-115); Osmolality Calculated 284 mOsm/kg (285-295); Potassium 4.1 mmol/L (3.5-5.1); Sodium 137 mmol/L (136-145); Total Bilirubin 0.4 mg/dL (0.15-1.2); Total Protein 7.9 g/dL (6.6-8.7)
[2020-08-18 13:10] VITALS: BP 97/61; PULSE 87; RESP 18; O2SAT 100
[2020-08-18 13:19] VITALS: RESP 18
[2020-08-18] MEDS: morphine 4 mg/mL SDV 1 mL 2 MG IVP (13:19)
[2020-08-18] MEDS: tetanus-dipt-pertussis 0.5 mL SDV IM (13:20)
[2020-08-18 14:06] VITALS: BP 109/71; PULSE 84; RESP 16; O2SAT 100
== END 2020-08-18 14:06 | disposition left against medical advice (07) ==
PROVIDERS: Emergency Provider Family Medicine; PCP Family Medicine
DX: R55 Syncope and collapse (principal); S01.81XA Laceration without foreign body of other part of head, initial encounter; W18.30XA Fall on same level, unspecified, initial encounter; Z23 Encounter for immunization; Z53.21 Procedure and treatment not carried out due to patient leaving prior to being seen by health care provider
CPT/HCPCS: 70450; 70480; 80053; 84703; 85025; 90471; 90715; 93005; 96361; 96374; 99284; J2270; J7030

== ENCOUNTER 2021-01-21 05:32 | Emergency (ER) | payer MEDICAID, SELFPAY ==
[2021-01-21 05:40] VITALS: BP 121/75; PULSE 67; RESP 18; TEMP 36.7; O2SAT 100; BMI 24.3
[2021-01-21] MEDS: diphenhydrAMINE 50 mg/mL SDV 1mL IVP (05:54)
[2021-01-21] MEDS: metoclopramide 5 mg/mL SDV 2 mL 10 MG IVP (05:54)
[2021-01-21] MEDS: sodium chloride 0.9% 1,000 ML 999 ML IV (05:54)
--- NOTE | 2021-01-21 05:55 | PC.NURSE ---
iv started by lisa mercer
--- NOTE | 2021-01-21 06:01 | PC.NURSE ---
pt states this pain is from 'wretching all night'
[2021-01-21 06:07] LABS: Basophils % 0.2 %; Eosinophils % 0.2 %; Hematocrit 37.5 % (37.0-47.0); Hemoglobin 12.7 g/dL (11.5-15.3); Lymphocytes # 1.9 10^3/uL (0.8-4.8); Lymphocytes % 15.8 %; Mean Corpuscular HGB Conc 33.9 g/dL (30.0-36.0); Mean Corpuscular Hemoglobin 30.2 pg (28.0-34.0); Mean Corpuscular Volume 89.1 fl (81-99); Mean Platelet Volume 10.6 fL (7.4-10.4); Monocytes # 0.6 10^3/uL (0.2-0.9); Monocytes % 4.8 %; Neutrophils # 9.43 10^3/uL (1.8-7.7); Neutrophils % 78.7 %; Nucleated Red Blood Cells % 0 %; Platelet Count 218 10^3/cmm (130-400); Red Blood Count 4.21 10^6/uL (4.1-5.3); Red Cell Distribution Width 12.7 % (12.1-15.1)
--- NOTE | 2021-01-21 06:12 | ED_ITS ---
HPI - Nausea/Vomiting/Diarrhea General: Chief complaint: Nausea/Vomiting/Diarrhea Stated complaint: Vomiting Time Seen by Provider: 01/21/21 05:54 History of Present Illness: HPI Narrative: 25-year-old female with a history of hyperemesis cannabinoid syndrome. She presents emergency room again complaining of nausea and vomiting that began about 5 hours previously. Unfortunately this is been a recurrent issue in the last year and 1/2 to 2 years for her. She denies any hematemesis coffee-ground emesis denies dysuria urgency or frequency flank pain. No significant abdominal pain other than abdominal wall pain from frequent vomiting. Patient states usual medicines for nausea do not help her and she needs to be hospitalized and knocked out MD elicited complaint: nausea and vomiting Pertinent past history: cyclical vomiting Onset (ago): hour(s) (5) Description of vomiting: watery and bilious Associated nausea: Yes Associated abdominal pain: Yes Location of pain: Diffuse Pain consistency: constant Severity: moderate Quality: aching Exacerbating factors: eating Relieving factors: none Context: marijuana use Associated symtoms: Reports anxiety, anorexia, malaise and nausea; Denies altered mental status, bloating, change in vision, chest pain, cough, diaphoresis, decreased urine output, dizziness, dysuria, epistaxis, fatigue, fecal incontinence, fevers/chills, headache(s), myalgias, numbness, palpitation s, rash, short of breath, syncope, tenesmus, tinnitus or weakness Treatment prior to arrival: other (Promethazine) Review of Systems Const: Reports: malaise; Denies: fatigue or diaphoresis Eyes: Denies: change in vision ENMT: Denies: tinnitus or epistaxis Card: Denies: chest pain, palpitations or syncope Resp: Denies: dyspnea, productive cough or non-productive cough GI: Reports: nausea; Denies: bloating or fecal incontinence : Denies: dysuria Skin/Breast: Denies: rash or pruritus Neuro: Denies: headache(s) or dizziness Psych: Reports: anxiety PFSH ED PFSH: Medical History (Updated 01/21/21 @ 06:31 by Mino Tate DO) Cannabinoid hyperemesis syndrome Cannabis hyperemesis syndrome concurrent with and due to cannabis abuse Surgical History S/P tonsillectomy and adenoidectomy Family History Mother Cyclical vomiting Social History Smoking and tobacco status: never smoked Alcohol intake: never Lives independently: Yes Housing: House Marital status: Single 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, 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: Date of last menstrual period: 07/15/20 Physical Exam Const: COMMON NORMALS: no acute distress EXAM LIMITATIONS: no altered mental status ORIENTATION/CONSCIOUSNESS: Yes awake, Yes oriented to person, Yes oriented to place and Yes oriented to time HENMT: COMMON NORMALS: normocephalic, atraumatic and hearing grossly normal bilaterally HEAD & SCALP: normocephalic and atraumatic Eye: COMMON NORMALS: Equal, round and reactive pupils present, EOMs intact bilaterally, conjunctivae normal and no scleral icterus CONJUNCTIVA: Yes conjunctivae normal PUPIL: Yes Equal, round and reactive pupils present Neck/C-Spine: COMMON NORMALS: no JVD Resp: COMMON NORMALS: normal respiratory effort, No retractions, No use of accessory muscles and clear to auscultation bilaterally AUSCULTATION: clear to auscultation bilaterally Cardio: COMMON NORMALS: no JVD, regular rate, regular rhythm and No murmurs present (Cardio) RATE: regular rate RHYTHM: regular rhythm GI: COMMON NORMALS: No hepatosplenomegaly present AUSCULTATION: Yes normoactive bowel sounds PALPATION: Yes Tenderness to palpation present (GI) (Diffuse abdominal wall tenderness no guarding no rebound no peritoneal sign), No Guarding due to palpation present (GI) and Yes No hepatosplenomegaly present OTHER: Abdominal pain on exam disproportionate to exam. Light abdominal wall touch elicits significant complaint. Not present with distraction. Extremity: COMMON NORMALS: normal to inspection, capillary refill normal, no clubbing, cyanosis or edema, no calf tenderness and no pedal edema Neuro: SENSORIUM/ORIENTATION: Yes oriented to person, Yes oriented to place and Yes oriented to time Skin: COMMON NORMALS: no rashes or lesions noted GENERAL SKIN EXAM: no rashes or lesions noted Course Vital Signs: Vital signs: Vital Signs Temperature 98.1 F 01/21/21 05:40 Pulse Rate 67 01/21/21 05:40 Respiratory Rate 18 01/21/21 05:40 Blood Pressure 121/75 01/21/21 05:40 Pulse Oximetry 100 01/21/21 05:40 MDM - Nausea/Vomiting/Diarrhea Lab Data: Labs: Lab Results 01/21/21 01/21/21 Range/Units 05:55 05:55 WBC 12.0 H (4.0-10.0) 10^3/ uL RBC 4.21 (4.1-5.3) 10^6/u L Hgb 12.7 (11.5-15.3) g/dL Hct 37.5 (37.0-47.0) % MCV 89.1 (81-99) fl MCH 30.2 (28.0-34.0) pg MCHC 33.9 (30.0-36.0) g/dL RDW 12.7 (12.1-15.1) % Plt Count 218 (130-400) 10^3/c mm MPV 10.6 H (7.4-10.4) fL Neut % (Auto) 78.7 % Lymph % (Auto) 15.8 % [place] % (Auto) 4.8 % Eos % (Auto) 0.2 % Baso % (Auto) 0.2 % Neut # (Auto) 9.43 H (1.8-7.7) 10^3/u L Lymph # (Auto) 1.9 (0.8-4.8) 10^3/u L [place] # (Auto) 0.6 (0.2-0.9) 10^3/u L Eos # (Auto) 0.0 (0.0-0.8) 10^3/u L Baso # (Auto) 0.0 (0.0-0.1) 10^3/u L Nucleated RBC % (a uto) 0 % Nucleated RBCs # 0.0 /100WBC Sodium 138 (136-145) mmol/L Potassium 3.4 L (3.5-5.1) mmol/L Chloride 104 (98-107) mmol/L Carbon Dioxide 24 (22-29) mmol/L Anion Gap 13.4 (5-19) BUN 9 (6-20) mg/dL Creatinine 0.7 (0.5-0.9) mg/dL GFR Calculation 103.7 (90-130) mL/min Glucose 139 H (65-115) mg/dL Calculated Osmolal ity 287 (285-295) mOsm/k g Calcium 8.8 (8.5-10.5) mg/dL Total Bilirubin 0.2 (0.15-1.2) mg/dL AST 18 (0-32) U/L ALT 19 (0-33) U/L Alkaline Phosphata se 82 (35-105) IU/L Total Protein 6.3 L (6.6-8.7) g/dL Albumin 3.7 (3.5-5.2) g/dL Globulin 2.6 (1.3-4.6) g/dL Lipase 18 (13-60) U/L Discharge Plan Discharge Patient Disposition: Home Clinical Impression: Cannabinoid hyperemesis syndrome, Hypokalemia Condition: Stable Prescriptions: New lorazepam [Ativan] 1 mg tablet 1 mg PO Q6H PRN (Reason: nausea and vomiting) Qty: 10 RF: 0 potassium chloride 20 mEq tablet extended release 20 meq PO BID Qty: 7 RF: 0 No Action chlorpromazine 25 mg tablet 25 mg PO TID Qty: 10 RF: 0 Tylenol Extra Strength 500 mg Tablet 1,000 mg PO PRN RF: 0 ibuprofen 200 mg Tablet 600 mg PO PRN RF: 0 ondansetron 4 mg tablet,disintegrating 4 mg PO Q8H Qty: 21 RF: 0 ondansetron HCl [Zofran] 4 mg tablet 4 mg PO Q6H PRN (Reason: nausea and vomiting) Qty: 15 RF: 0 lorazepam [Ativan] 1 mg tablet 1 mg PO Q6H PRN (Reason: nausea and vomiting) Qty: 10 RF: 0 promethazine 25 mg tablet 25 mg PO Q6H PRN (Reason: nausea and vomiting) Qty: 14 RF: 0 metoclopramide HCl [Reglan] 10 mg tablet 10 mg PO Q6H PRN (Reason: nausea and vomiting) Qty: 20 RF: 0 Zofran 4 mg tablet 4 mg PO Q8H Qty: 15 RF: 0 Imitrex 50 mg tablet See Rx Instructions .ROUTE .COMPLEX Qty: 10 RF: 0 promethazine 25 mg tablet 25 mg PO TID PRN (Reason: nausea and vomiting) Qty: 14 RF: 0 Discharge Orders: Discharge ED (Routine); Ordered 01/21/21 Ordered By: Mino Tate Patient Instructions: Opioid Safety Coding Level of Care Code ED [employer] Manager for Chg Fwd Exam Comprehensive
[2021-01-21] MEDS: haloperidol inj 5 mg/mL INJ 1 mL 2.5 MG IVP (06:18)
[2021-01-21 06:26] LABS: Alanine Aminotransferase 19 U/L (0-33); Albumin Level 3.7 g/dL (3.5-5.2); Alkaline Phosphatase 82 IU/L (35-105); Anion Gap 13.4 (5-19); Aspartate Amino Transferase 18 U/L (0-32); Blood Urea Nitrogen 9 mg/dL (6-20); Calcium 8.8 mg/dL (8.5-10.5); Carbon Dioxide 24 mmol/L (22-29); Chloride 104 mmol/L (98-107); Globulin 2.6 g/dL (1.3-4.6); Glomerular Filtration Rate 103.7 mL/min (90-130); Glucose 139 mg/dL (65-115); Lipase 18 U/L (13-60); Osmolality Calculated 287 mOsm/kg (285-295); Potassium 3.4 mmol/L (3.5-5.1); Sodium 138 mmol/L (136-145); Total Bilirubin 0.2 mg/dL (0.15-1.2); Total Protein 6.3 g/dL (6.6-8.7)
== END 2021-01-21 06:48 | disposition home or self-care (01) ==
PROVIDERS: Emergency Medicine; Emergency Provider Family Medicine
DX: E87.6 Hypokalemia (principal); R11.10 Vomiting, unspecified; F12.90 Cannabis use, unspecified, uncomplicated
CPT/HCPCS: 80053; 83690; 85025; 96374; 96375; 99283; J1200; J1630; J2765; J7030

== ENCOUNTER 2022-01-07 07:56 | Emergency (ER) | payer MEDICAID, SELFPAY ==
[2022-01-07 08:01] VITALS: BP 120/85; PULSE 83; RESP 18; TEMP 36.6; O2SAT 97; BMI 26.6
--- NOTE | 2022-01-07 08:13 | CT_ITS ---
WS: [id number] CT CERVICAL TRAUMA TECHNIQUE: Noncontrast CT of the cervical spine with coronal and sagittal reformatted images. CLINICAL INFORMATION: trauma COMPARISON: None. DLP: 1319.[address] scans at [facility] use at least one of these dose optimization techniques: automated e xposure control; mA and/or kV adjustment per patient size (includes targeted exams where dose is matc hed to clinical indication); or iterative reconstruction. FINDINGS: Straightening of the normal cervical lordosis. Normal craniocervical junction. Normal C1-C2 articulat ion. Dens is normal in appearance. Normal occipital condyles. No high-grade spinal canal narrowing. N ormal C1 ring. No evidence of acute fracture or dislocation. Normal prevertebral soft tissues. Mastoids air cells are well aerated. CT/CT cervical spin wo con* [id number] IMPRESSION: No evidence of acute fracture or dislocation.
--- NOTE | 2022-01-07 08:13 | CT_ITS ---
WS: [id number] CT HEAD TECHNIQUE: Noncontrast CT of the head obtained from the skullbase to the vertex. CLINICAL INFORMATION: trauma COMPARISON: August 18, 2020 DLP: 1319.[address] scans at [facility] use at least one of these dose optimization techniques: automated e xposure control; mA and/or kV adjustment per patient size (includes targeted exams where dose is matc hed to clinical indication); or iterative reconstruction. FINDINGS: No evidence of intracranial hemorrhage or mass effect. Ventricular system and basal cisterns are nielsen nt. No extra-axial fluid collections. No evidence of mass or mass effect. Normal leonard-white different iation. Soft tissue edema overlying the RIGHT inferior frontal calvarium. No visualized fractures. Mastoid ai r cells well aerated. Slightly low-lying cerebellar tonsils. CT/CT head wo con* [id number] IMPRESSION: 1. No evidence of intracranial hemorrhage or mass effect. 2. Soft tissue edema overlying the RIGHT inferior frontal calvarium. No visual ized fractures. 3. No acute intracranial findings.
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
[2022-01-07] MEDS: ketorolac 30 mg/mL INJ IVP (08:21)
[2022-01-07] MEDS: ondansetron 2 mg/ML SDV 2 mL 4 MG IVP (08:21)
[2022-01-07] MEDS: tetanus-dipt-pertussis 0.5 mL SDV IM (08:22)
[2022-01-07 08:30] VITALS: BP 121/72; PULSE 84; O2SAT 98
[2022-01-07 08:44] LABS: Basophils % 0.2 %; Eosinophils # 0.1 10^3/uL (0.0-0.8); Eosinophils % 0.9 %; Hematocrit 40.2 % (37.0-47.0); Hemoglobin 13.4 g/dL (11.5-15.3); Lymphocytes # 2.3 10^3/uL (0.8-4.8); Lymphocytes % 35.2 %; Mean Corpuscular HGB Conc 33.3 g/dL (30.0-36.0); Mean Corpuscular Hemoglobin 30.9 pg (28.0-34.0); Mean Corpuscular Volume 92.8 fl (81-99); Mean Platelet Volume 10.6 fL (7.4-10.4); Monocytes # 0.6 10^3/uL (0.2-0.9); Monocytes % 8.5 %; Neutrophils # 3.59 10^3/uL (1.8-7.7); Neutrophils % 54.6 %; Nucleated Red Blood Cells % 0 %; Platelet Count 217 10^3/cmm (130-400); Red Blood Count 4.33 10^6/uL (4.1-5.3); Red Cell Distribution Width 12.3 % (12.1-15.1); White Blood Count 6.6 10^3/uL (4.0-10.0)
[2022-01-07] MEDS: midazolam 1 mg/mL INJ 2 mL IVP (09:15)
[2022-01-07 09:17] LABS: Anion Gap 13.9 (5-19); Blood Urea Nitrogen 8 mg/dL (6-20); Calcium 9.1 mg/dL (8.5-10.5); Carbon Dioxide 18 mmol/L (22-29); Chloride 106 mmol/L (98-107); Glomerular Filtration Rate 122.8 mL/min (90-130); Glucose 97 mg/dL (65-115); Osmolality Calculated 276 mOsm/kg (285-295); Potassium 3.9 mmol/L (3.5-5.1); Sodium 134 mmol/L (136-145)
[2022-01-07 09:30] VITALS: BP 100/76; PULSE 77; O2SAT 99
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
[2022-01-07 10:32] LABS: Add Urine Microscopic? NO; Charge for UA Resulting for Rev
[2022-01-07 10:39] LABS: Bilirubin Urine Neg (Negative); Blood Urine Neg (Negative); Glucose Urine UA Norm (Normal); Ketones Urine Negative (Negative); Leukocyte Esterase Urine Negative (Negative); Nitrate Urine Negative (Negative); Protein Urine Neg (Negative); Urine Appearance Clear (CLEAR); Urine Color Yellow (Yellow); Urobilinogen Urine Norm (Negative); pH Urine 6 (5-7)
[2022-01-07 11:07] VITALS: BP 115/63; PULSE 78; O2SAT 97
--- NOTE | 2022-01-08 14:35 | DCPLANNER ---
Addendum entered by Pippa Ritter 01/10/22 07:58: Patient had a follow up appointment scheduled with Dr. Wilson at ortho - patient did attend appointment. Original Note: industrial safety and health manager had message to schedule a follow up appointment for patient with ortho. industrial safety and health manager sent patients information to the front office staff at ortho. Patients information will be printed and reviewed. Clinic will call patient with appointment information.
== END 2022-01-07 11:11 | disposition home or self-care (01) ==
PROVIDERS: Emergency Provider Family Medicine
DX: M79.671 Pain in right foot (principal); S01.81XA Laceration without foreign body of other part of head, initial encounter; V89.2XXA Person injured in unspecified motor-vehicle accident, traffic, initial encounter; Z23 Encounter for immunization
CPT/HCPCS: 70450; 72125; 73630; 80048; 81003; 85025; 90471; 90715; 96374; 96375; 99285; E0114; J1885; J2250; J2405

== ENCOUNTER 2022-01-08 13:25 | Outpatient (CLI) | payer MEDICAID, SELFPAY | END 2022-01-08 13:26 | disposition home or self-care (01) | LOC: SPT 13:26 | PROVIDERS: Visit Provider Podiatrist Foot & Ankle Surgery | DX: M79.671 Pain in right foot (principal); S99.921A Unspecified injury of right foot, initial encounter; V49.9XXA Car occupant (driver) (passenger) injured in unspecified traffic accident, initial encounter | CPT/HCPCS: 97760; 99203; 99204; L4361 ==

== ENCOUNTER 2022-01-22 07:31 | Outpatient (CLI) | payer MEDICAID, SELFPAY ==
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
== END 2022-01-22 07:32 | disposition home or self-care (01) ==
PROVIDERS: PCP Family Medicine; Visit Provider Podiatrist Foot & Ankle Surgery
DX: M79.671 Pain in right foot (principal); Q66.89 Other specified congenital deformities of feet
CPT/HCPCS: 73700

== ENCOUNTER → 2022-02-06 14:03 | Outpatient (BNVA) | payer MEDICAID, SELFPAY | PROVIDERS: PCP Family Medicine; Visit Provider Podiatrist Foot & Ankle Surgery | DX: S99.921D Unspecified injury of right foot, subsequent encounter (principal); S92.044D Nondisplaced other fracture of tuberosity of right calcaneus, subsequent encounter for fracture with routine healing; S92.001D Unspecified fracture of right calcaneus, subsequent encounter for fracture with routine healing; V89.2XXD Person injured in unspecified motor-vehicle accident, traffic, subsequent encounter | CPT/HCPCS: 73630; 99214 ==

== ENCOUNTER → 2022-04-14 14:13 | Outpatient (BNVA) | payer MEDICAID, SELFPAY | PROVIDERS: PCP Family Medicine; Visit Provider Podiatrist Foot & Ankle Surgery | DX: S92.001D Unspecified fracture of right calcaneus, subsequent encounter for fracture with routine healing (principal); V89.2XXD Person injured in unspecified motor-vehicle accident, traffic, subsequent encounter | CPT/HCPCS: 73650; 99213 ==

== ENCOUNTER 2022-12-12 12:21 | Emergency (ER) | payer MEDICAID, SELFPAY ==
[2022-12-12 12:25] VITALS: BP 117/73; PULSE 61; RESP 22; O2SAT 100; BMI 24.9
--- NOTE | 2022-12-12 13:17 | ED_ITS ---
HPI - Nausea/Vomiting/Diarrhea General: Chief complaint: Nausea/Vomiting/Diarrhea Stated complaint: NV Time Seen by Provider: 12/12/22 12:31 Source: patient Mode of arrival: ambulatory Limitations: no limitations History of Present Illness: 27-year-old female has a history of cyclical vomiting syndrome states that this morning a.m. she started vomiting states she has vomited multiple times and cannot get it under control she is got abdominal cramping she denies any fevers denies any chest pain. Associated nausea: Yes Associated symtoms: Reports nausea; Denies chest pain or headache(s) Review of Systems Const: Denies: fever(s) or chills ENMT: Denies: throat pain or dental pain Card: Denies: chest pain Resp: Denies: dyspnea GI: Reports: abdominal pain, nausea and vomiting; Denies: diarrhea Musc: Denies: neck pain or back pain Skin/Breast: Denies: rash Neuro: Denies: headache(s) PFS ED PFSH: Medical History (Updated 12/12/22 @ 15:22 by Jesse Josue MD) Cannabinoid hyperemesis syndrome Cannabis hyperemesis syndrome concurrent with and due to cannabis abuse Surgical History S/P tonsillectomy and adenoidectomy Family History Mother Cyclical vomiting Social History Smoking and tobacco status: never smoked Alcohol intake: never Substance/Drug Use: current Substance/Drug use frequency: daily Lives independently: Yes Housing: House Marital status: Single 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, works at night as [email or web address] Female 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 History: Date of last menstrual period: 12/12/22 Physical Exam Const: COMMON NORMALS: patient oriented x3 HENMT: COMMON NORMALS: normocephalic and atraumatic HEAD & SCALP: normocephalic and atraumatic Eye: COMMON NORMALS: Equal, round and reactive pupils present and EOMs intact bilaterally PUPIL: Yes Equal, round and reactive pupils present Neck/C-Spine: COMMON NORMALS: full ROM and supple Chest: COMMONS NORMALS: normal inspection of the chest and normal palpation of entire chest wall Resp: COMMON NORMALS: normal respiratory effort, No retractions, No use of accessory muscles and clear to auscultation bilaterally AUSCULTATION: clear to auscultation bilaterally Cardio: COMMON NORMALS: regular rate, regular rhythm and No murmurs present (Cardio) RATE: regular rate RHYTHM: regular rhythm GI: COMMON NORMALS: Normal to inspection, nondistended, normoactive bowel sounds present, Soft to palpation, non-tender and no masses PALPATION: Yes Soft to palpation Extremity: COMMON NORMALS: normal to inspection and full ROM Neuro: COMMON NORMALS: patient oriented x3, moves all extremities and no focal motor deficits Psych: COMMON NORMALS: mental status grossly normal, Normal thought process present and cooperative THOUGHT PROCESS: Normal thought process present Skin: COMMON NORMALS: no rashes or lesions noted and no wounds GENERAL SKIN EXAM: no rashes or lesions noted Course Vital Signs: Vital signs: Vital Signs Pulse Rate 61 12/12/22 12:25 Respiratory Rate 22 H 12/12/22 12:25 Blood Pressure 117/73 12/12/22 12:25 Pulse Oximetry 100 12/12/22 12:25 Oxygen Delivery Me thod Room Air 12/12/22 12:25 MDM - Nausea/Vomiting/Diarrhea Medical Decision Making Patient presents here with vomiting likely cyclic vomiting syndrome she feels much improved here after meds blood work here is normal she is stable for discharge she is to follow-up with her PCP we will prescribe her Zofran. Medical Records I reviewed the patient's medical records. Lab Data I reviewed the patient's lab results. 12/12/22 12:50 12/12/22 14:40 Laboratory Results WBC 10.3 10^3/uL (4.0-10.0) H 12/12/22 12:50 RBC 4.55 10^6/uL (4.1-5.3) 12/12/22 12:50 Hgb 13.9 g/dL (11.5-15.3) 12/12/22 12:50 Hct 40.6 % (37.0-47.0) 12/12/22 12:50 MCV 89.2 fl (81-99) 12/12/22 12:50 MCH 30.5 pg (28.0-34.0) 12/12/22 12:50 MCHC 34.2 g/dL (30.0-36.0) 12/12/22 12:50 RDW 12.0 % (12.1-15.1) L 12/12/22 12:50 Plt Count 319 10^3/cmm (130-400) 12/12/22 12:50 MPV 11.4 fL (7.4-10.4) H 12/12/22 12:50 Neut % (Auto) 82.8 % 12/12/22 12:50 Lymph % (Auto) 14.4 % 12/12/22 12:50 [place] % (Auto) 2.3 % 12/12/22 12:50 Eos % (Auto) 0.1 % 12/12/22 12:50 Baso % (Auto) 0.1 % 12/12/22 12:50 Neut # (Auto) 8.56 10^3/uL (1.8-7.7) H 12/12/22 12:50 Lymph # (Auto) 1.5 10^3/uL (0.8-4.8) 12/12/22 12:50 [place] # (Auto) 0.2 10^3/uL (0.2-0.9) 12/12/22 12:50 Eos # (Auto) 0.0 10^3/uL (0.0-0.8) 12/12/22 12:50 Baso # (Auto) 0.0 10^3/uL (0.0-0.1) 12/12/22 12:50 Nucleated RBC % (auto) 0 % 12/12/22 12:50 Nucleated RBCs # 0.0 /100WBC 12/12/22 12:50 Sodium 140 mmol/L (136-145) 12/12/22 14:40 Potassium 4.1 mmol/L (3.5-5.1) 12/12/22 14:40 Chloride 109 mmol/L (98-107) H 12/12/22 14:40 Carbon Dioxide 20 mmol/L (22-29) L 12/12/22 14:40 Anion Gap 15.1 (5-19) 12/12/22 14:40 BUN 8 mg/dL (6-20) 12/12/22 14:40 Creatinine 0.6 mg/dL (0.5-0.9) 12/12/22 14:40 GFR Calculation 121.8 mL/min (90-130) 12/12/22 14:40 Glucose 113 mg/dL (65-115) 12/12/22 14:40 Calculated Osmolality 289 mOsm/kg (285-295) 12/12/22 14:40 Calcium 8.4 mg/dL (8.5-10.5) L 12/12/22 14:40 Total Bilirubin 0.3 mg/dL (0.15-1.2) 12/12/22 14:40 AST 14 U/L (0-32) 12/12/22 14:40 ALT 14 U/L (0-33) 12/12/22 14:40 Alkaline Phosphatase 48 U/L (35-105) 12/12/22 14:40 Total Protein 6.3 g/dL (6.6-8.7) L 12/12/22 14:40 Albumin 3.9 g/dL (3.5-5.2) 12/12/22 14:40 Globulin 2.4 g/dL (1.3-4.6) 12/12/22 14:40 Lipase Cancelled 12/12/22 12:50 HCG, Qual Negative (Negative) 12/12/22 14:40 Discharge Plan Discharge Patient Disposition: Home Clinical Impression: Vomiting Condition: Stable Prescriptions: New ondansetron 4 mg tablet,disintegrating 4 mg PO Q6H PRN (Reason: nausea and vomiting) Qty: 14 0RF No Action lorazepam [Ativan] 1 mg tablet 1 mg PO Q6H PRN (Reason: nausea and vomiting) Qty: 10 0RF sumatriptan succinate [Imitrex] 50 mg tablet See Rx Instructions .ROUTE .COMPLEX Qty: 10 0RF Rx Instructions: take 1 tab at onset of nausea ; if no relief may repeat 1 tab after at least 2 hrs; max = 4 tabs/24 hr tizanidine 4 mg tablet 4 mg PO Q6H PRN (Reason: muscle spasticity) Qty: 20 0RF Rx Instructions: do not exceed 3 doses per 24 hrs diclofenac sodium 75 mg tablet,delayed release (DR/EC) 75 mg PO Q12H PRN (Reason: pain) Qty: 20 0RF Discharge Orders: Discharge ED (Routine); Ordered 12/12/22 Ordered By: Jesse Josue Referrals: Aureliano Rodas MD [Primary Care Provider] - 1-3 days Discharge Diet: Advance as tolerated Discharge Activity: Resume usual activity Patient Instructions: Acute Nausea and Vomiting (ED) Coding Level of Care Code ED Charging Manipulator for Carlos Ahuja
[2022-12-12 13:23] LABS: Basophils % 0.1 %; Eosinophils % 0.1 %; Hematocrit 40.6 % (37.0-47.0); Hemoglobin 13.9 g/dL (11.5-15.3); Lymphocytes # 1.5 10^3/uL (0.8-4.8); Lymphocytes % 14.4 %; Mean Corpuscular HGB Conc 34.2 g/dL (30.0-36.0); Mean Corpuscular Hemoglobin 30.5 pg (28.0-34.0); Mean Corpuscular Volume 89.2 fl (81-99); Mean Platelet Volume 11.4 fL (7.4-10.4); Monocytes # 0.2 10^3/uL (0.2-0.9); Monocytes % 2.3 %; Neutrophils # 8.56 10^3/uL (1.8-7.7); Neutrophils % 82.8 %; Nucleated Red Blood Cells % 0 %; Platelet Count 319 10^3/cmm (130-400); Red Blood Count 4.55 10^6/uL (4.1-5.3); White Blood Count 10.3 10^3/uL (4.0-10.0)
[2022-12-12] MEDS: sodium chloride 0.9% 1,000 ML 999 ML IV (13:25)
[2022-12-12] MEDS: HYDROmorphone 1 mg/mL INJ 1 mL 0.5 MG IVP (13:26)
[2022-12-12] MEDS: LORazepam 2 mg/mL INJ 1 mL IVP (13:26)
[2022-12-12 15:09] LABS: HCG, Serum Qual Negative (Negative)
[2022-12-12 15:17] LABS: Alanine Aminotransferase 14 U/L (0-33); Albumin Level 3.9 g/dL (3.5-5.2); Alkaline Phosphatase 48 U/L (35-105); Anion Gap 15.1 (5-19); Aspartate Amino Transferase 14 U/L (0-32); Blood Urea Nitrogen 8 mg/dL (6-20); Calcium 8.4 mg/dL (8.5-10.5); Carbon Dioxide 20 mmol/L (22-29); Chloride 109 mmol/L (98-107); Globulin 2.4 g/dL (1.3-4.6); Glomerular Filtration Rate 121.8 mL/min (90-130); Glucose 113 mg/dL (65-115); Osmolality Calculated 289 mOsm/kg (285-295); Potassium 4.1 mmol/L (3.5-5.1); Sodium 140 mmol/L (136-145); Total Bilirubin 0.3 mg/dL (0.15-1.2); Total Protein 6.3 g/dL (6.6-8.7)
== END 2022-12-12 15:48 | disposition home or self-care (01) ==
PROVIDERS: Emergency Provider Emergency Medicine; PCP Family Medicine
DX: R11.11 Vomiting without nausea (principal)
CPT/HCPCS: 80053; 84703; 85025; 96361; 96374; 96375; 99284; J1170; J2060; J7030

== ENCOUNTER 2022-12-14 09:52 | Emergency (ER) | payer MEDICAID, SELFPAY ==
[2022-12-14 09:56] VITALS: BP 144/84; PULSE 75; RESP 17; O2SAT 98
--- NOTE | 2022-12-14 10:02 | W.ED.NAVMDI ---
HPI - Nausea/Vomiting/Diarrhea General: Chief complaint: Nausea/Vomiting/Diarrhea Stated complaint: n/V Time Seen by Provider: 12/14/22 09:54 Source: patient Mode of arrival: ambulatory History of Present Illness: 27-year-old female presents emergency room with persistent nausea vomiting was seen 3 days ago discharged home after fluids labs were normal. Was given Zofran to use as needed at home unfortunately she lost her discharge paperwork so she was not able to get that filled she has persistent symptoms today. She has had multiple visits to the emergency room over the last few years with a similar type presentation. Her symptoms in the past have been associated with marijuana use. No hematochezia melena hematemesis or coffee-ground emesis MD elicited complaint: nausea and vomiting Pertinent past history: other (Hyperemesis cannabinoid) Onset (ago): day(s) Associated nausea: Yes Associated abdominal pain: Yes Location of pain: Diffuse Quality: cramping Exacerbating factors: eating Relieving factors: none Associated symtoms: Reports bloating, anorexia and nausea; Denies anxiety, change in vision, chest pain, cough, diaphoresis, decreased urine output, dizziness, dysuria, epistaxis, fatigue, fecal incontinence, fevers/chills, headache(s), malaise, myalgias, numbness, palpitations, rash, short of breath, syncope, tenesmus, tinnitus or weakness Review of Systems Const: Denies: fever(s), chills, fatigue, malaise or diaphoresis Eyes: Denies: change in vision ENMT: Denies: tinnitus or epistaxis Card: Denies: chest pain, palpitations or syncope Resp: Denies: dyspnea, productive cough or non-productive cough GI: Reports: abdominal pain, nausea, vomiting and bloating; Denies: hematemesis, fecal incontinence, hematochezia or melena : Denies: dysuria, urinary frequency or urinary urgency Skin/Breast: Denies: rash or pruritus Neuro: Denies: headache(s) or dizziness Psych: Denies: anxiety PFSH ED PFSH: Medical History (Updated 12/14/22 @ 11:32 by Mino Tate DO) Cannabinoid hyperemesis syndrome Cannabis hyperemesis syndrome concurrent with and due to cannabis abuse Surgical History S/P tonsillectomy and adenoidectomy Family History Mother Cyclical vomiting Social History Smoking and tobacco status: never smoked Alcohol intake: never Substance/Drug Use: current Substance/Drug use frequency: daily Lives independently: Yes Housing: House Marital status: Single 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, 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 Const: GENERAL APPEARANCE: cooperative ORIENTATION/CONSCIOUSNESS: Yes awake, Yes oriented to person, Yes oriented to place and Yes oriented to time HENMT: COMMON NORMALS: normocephalic, atraumatic and hearing grossly normal bilaterally HEAD & SCALP: normocephalic and atraumatic Resp: COMMON NORMALS: normal respiratory effort, No retractions, No use of accessory muscles and clear to auscultation bilaterally AUSCULTATION: clear to auscultation bilaterally Cardio: COMMON NORMALS: regular rate, regular rhythm and No murmurs present (Cardio) RATE: regular rate RHYTHM: regular rhythm GI: COMMON NORMALS: Soft to palpation and No hepatosplenomegaly present AUSCULTATION: Yes normoactive bowel sounds PALPATION: Yes Soft to palpation, No Tenderness to palpation present (GI), No Guarding due to palpation present (GI) and Yes No hepatosplenomegaly present Extremity: COMMON NORMALS: normal to inspection, capillary refill normal, no clubbing, cyanosis or edema, no calf tenderness and no pedal edema Neuro: SENSORIUM/ORIENTATION: Yes oriented to person, Yes oriented to place and Yes oriented to time Skin: COMMON NORMALS: no rashes or lesions noted GENERAL SKIN EXAM: no rashes or lesions noted Course Vital Signs: Vital signs: Vital Signs Pulse Rate 76 12/14/22 10:15 Respiratory Rate 23 H 12/14/22 10:15 Blood Pressure 129/69 12/14/22 10:15 Pulse Oximetry 100 12/14/22 10:15 Oxygen Delivery Me thod Room Air 12/14/22 10:15 MDM - Nausea/Vomiting/Diarrhea Medical Decision Making Patient improved with medications and fluids given. Mild hypokalemia also given oral potassium supplement. Discharge home with olanzapine and Ativan to use as needed for persistent nausea and vomiting encouraged to abstain from marijuana products Medical Records I reviewed the patient's medical records. Lab Data I reviewed the patient's lab results. 12/14/22 10:05 12/14/22 10:38 Laboratory Results WBC 8.0 10^3/uL (4.0-10.0) 12/14/22 10:05 RBC 4.71 10^6/uL (4.1-5.3) 12/14/22 10:05 Hgb 14.4 g/dL (11.5-15.3) 12/14/22 10:05 Hct 43.4 % (37.0-47.0) 12/14/22 10:05 MCV 92.1 fl (81-99) 12/14/22 10:05 MCH 30.6 pg (28.0-34.0) 12/14/22 10:05 MCHC 33.2 g/dL (30.0-36.0) 12/14/22 10:05 RDW 12.6 % (12.1-15.1) 12/14/22 10:05 Plt Count 294 10^3/cmm (130-400) 12/14/22 10:05 MPV 11.0 fL (7.4-10.4) H 12/14/22 10:05 Neut % (Auto) 79.9 % 12/14/22 10:05 Lymph % (Auto) 16.8 % 12/14/22 10:05 Lamar % (Auto) 2.3 % 12/14/22 10:05 Eos % (Auto) 0.1 % 12/14/22 10:05 Baso % (Auto) 0.1 % 12/14/22 10:05 Neut # (Auto) 6.37 10^3/uL (1.8-7.7) 12/14/22 10:05 Lymph # (Auto) 1.3 10^3/uL (0.8-4.8) 12/14/22 10:05 Lamar # (Auto) 0.2 10^3/uL (0.2-0.9) 12/14/22 10:05 Eos # (Auto) 0.0 10^3/uL (0.0-0.8) 12/14/22 10:05 Baso # (Auto) 0.0 10^3/uL (0.0-0.1) 12/14/22 10:05 Nucleated RBC % (auto) 0 % 12/14/22 10:05 Nucleated RBCs # 0.0 /100WBC 12/14/22 10:05 Sodium 139 mmol/L (136-145) 12/14/22 10:38 Potassium 3.1 mmol/L (3.5-5.1) L 12/14/22 10:38 Chloride 105 mmol/L (98-107) 12/14/22 10:38 Carbon Dioxide 19 mmol/L (22-29) L 12/14/22 10:38 Anion Gap 18.1 (5-19) 12/14/22 10:38 BUN 5 mg/dL (6-20) L 12/14/22 10:38 Creatinine 0.6 mg/dL (0.5-0.9) 12/14/22 10:38 GFR Calculation 121.8 mL/min (90-130) 12/14/22 10:38 Glucose 117 mg/dL (65-115) H 12/14/22 10:38 Calculated Osmolality 286 mOsm/kg (285-295) 12/14/22 10:38 Calcium 8.6 mg/dL (8.5-10.5) 12/14/22 10:38 Total Bilirubin 0.2 mg/dL (0.15-1.2) 12/14/22 10:38 AST 18 U/L (0-32) 12/14/22 10:38 ALT 19 U/L (0-33) 12/14/22 10:38 Alkaline Phosphatase 47 U/L (35-105) 12/14/22 10:38 Total Protein 6.5 g/dL (6.6-8.7) L 12/14/22 10:38 Albumin 3.8 g/dL (3.5-5.2) 12/14/22 10:38 Globulin 2.7 g/dL (1.3-4.6) 12/14/22 10:38 Lipase 29 U/L (13-60) 12/14/22 10:38 Discharge Plan Discharge Patient Disposition: Home Clinical Impression: Cannabinoid hyperemesis syndrome Condition: Stable Prescriptions: New olanzapine 10 mg tablet,disintegrating 10 mg PO Q8H PRN (Reason: nausea and vomiting) Qty: 10 0RF Ativan 2 mg tablet 2 mg buccal TID PRN (Reason: nausea and vomiting) Qty: 10 0RF No Action ondansetron 4 mg tablet,disintegrating 4 mg PO Q6H PRN (Reason: nausea and vomiting) Qty: 14 0RF Discharge Orders: Discharge ED (Routine); Ordered 12/14/22 Ordered By: Mino Tate Referrals: Aureliano Rodas MD [Primary Care Provider] - Discharge Diet: Clear Liquid Discharge Activity: Increase activity as tolerated Patient Instructions: Cannabis Use Disorder (ED), Opioid Safety, Pain Management Activity Restrictions/Additional Instructions: Avoid use of marijuana products. You can use the lorazepam olanzapine as needed for recurrent episodes of nausea and vomiting Coding Level of Care Code ED Any Commodity Sales Deliverer for Carlos Ahuja
[2022-12-14] MEDS: LORazepam 2 mg/mL INJ 1 mL IVP (10:12)
[2022-12-14 10:13] LABS: Basophils % 0.1 %; Eosinophils % 0.1 %; Hematocrit 43.4 % (37.0-47.0); Hemoglobin 14.4 g/dL (11.5-15.3); Lymphocytes # 1.3 10^3/uL (0.8-4.8); Lymphocytes % 16.8 %; Mean Corpuscular HGB Conc 33.2 g/dL (30.0-36.0); Mean Corpuscular Hemoglobin 30.6 pg (28.0-34.0); Mean Corpuscular Volume 92.1 fl (81-99); Monocytes # 0.2 10^3/uL (0.2-0.9); Monocytes % 2.3 %; Neutrophils # 6.37 10^3/uL (1.8-7.7); Neutrophils % 79.9 %; Nucleated Red Blood Cells % 0 %; Platelet Count 294 10^3/cmm (130-400); Red Blood Count 4.71 10^6/uL (4.1-5.3); Red Cell Distribution Width 12.6 % (12.1-15.1)
[2022-12-14] MEDS: sodium chloride 0.9% 1,000 ML 999 ML IV ×2 (10:13→11:37)
[2022-12-14] MEDS: haloperidol inj 5 mg/mL INJ 1 mL 2.5 MG IVP (10:13)
[2022-12-14 10:15] VITALS: BP 129/69; PULSE 76; RESP 23; O2SAT 100
[2022-12-14 11:15] LABS: Alanine Aminotransferase 19 U/L (0-33); Albumin Level 3.8 g/dL (3.5-5.2); Alkaline Phosphatase 47 U/L (35-105); Anion Gap 18.1 (5-19); Aspartate Amino Transferase 18 U/L (0-32); Blood Urea Nitrogen 5 mg/dL (6-20); Calcium 8.6 mg/dL (8.5-10.5); Carbon Dioxide 19 mmol/L (22-29); Chloride 105 mmol/L (98-107); Globulin 2.7 g/dL (1.3-4.6); Glomerular Filtration Rate 121.8 mL/min (90-130); Glucose 117 mg/dL (65-115); Lipase 29 U/L (13-60); Osmolality Calculated 286 mOsm/kg (285-295); Potassium 3.1 mmol/L (3.5-5.1); Sodium 139 mmol/L (136-145); Total Bilirubin 0.2 mg/dL (0.15-1.2); Total Protein 6.5 g/dL (6.6-8.7)
[2022-12-14] MEDS: potassium chloride oral liq 20 mEq/15 mL UDC 40 MEQ PO (11:36)
[2022-12-14 11:41] VITALS: BP 103/52; PULSE 78; RESP 20; O2SAT 96
== END 2022-12-14 12:07 | disposition home or self-care (01) ==
PROVIDERS: Emergency Provider Family Medicine; PCP Family Medicine
DX: R11.2 Nausea with vomiting, unspecified (principal); E87.6 Hypokalemia; F12.90 Cannabis use, unspecified, uncomplicated
CPT/HCPCS: 36415; 80053; 83690; 85025; 96361; 96374; 96375; 99284; J1630; J2060; J7030

== ENCOUNTER 2023-01-12 10:35 | Emergency (ER) | payer MEDICAID, SELFPAY ==
[2023-01-12 10:40] VITALS: BP 131/83; PULSE 92; RESP 24; TEMP 36.7; O2SAT 100; BMI 25.7
--- NOTE | 2023-01-12 10:45 | W.ED.NAVMDI ---
HPI - Nausea/Vomiting/Diarrhea General: Chief complaint: Nausea/Vomiting/Diarrhea Stated complaint: NV Time Seen by Provider: 01/12/23 10:40 Source: patient Mode of arrival: ambulatory Limitations: no limitations History of Present Illness: Patient is a 27-year-old female presents to ED today with complaint of nausea, vomiting, abdominal pain. She tells me she has a history of cyclic vomiting syndrome and her symptoms are identical to previous episodes. I have seen patient previously for identical symptoms. She has been in our emergency department multiple times for identical symptoms. She has a longstanding marijuana user stating she started smoking when she was 18 years old. She has been told by previous providers including myself that her symptoms most likely are related to this however she is adamant that they are not stating she subsided from marijuana use for 3 months and did not notice a difference in her symptoms. Again, patient has been smoking habitually for 9 years. She tells me after her discharge last time she was here in the emergency department recently she was placed on Olanzapine and Ativan and this did not seem to help her symptoms. Patient denies changes in bowel movements. She is not having any hematemesis. Abdominal pain is diffuse and crampy. No fevers. No urinary symtpoms. MD elicited complaint: nausea, vomiting and abdominal pain Pertinent past history: cyclical vomiting Onset (ago): day(s) Associated nausea: Yes Associated abdominal pain: Yes Location of pain: Diffuse Radiation: diffuse Pain consistency: constant Severity: severe Quality: cramping Exacerbating factors: eating Relieving factors: none Context: marijuana use Associated symtoms: Reports dizziness and nausea; Denies chest pain, dysuria, fatigue, headache(s) or malaise Review of Systems Const: Denies: fever(s), chills, body aches, fatigue or malaise Card: Denies: chest pain Resp: Denies: dyspnea GI: Reports: abdominal pain, nausea, vomiting and GI cramping; Denies: hematemesis, heartburn, diarrhea, change in bowel habits, hematochezia or melena : Denies: flank pain, difficulty voiding, dysuria, hematuria or pelvic pain Musc: Denies: neck pain, back pain, extremity pain or joint pain Skin/Breast: Denies: rash Neuro: Reports: dizziness; Denies: headache(s), numbness in extremities, weakness in extremities or sensory changes [facility] ED PFSH: Medical History (Updated 01/12/23 @ 12:30 by SIOBHAN Krishna) Cannabinoid hyperemesis syndrome Cannabis hyperemesis syndrome concurrent with and due to cannabis abuse Surgical History S/P tonsillectomy and adenoidectomy Family History Mother Cyclical vomiting Social History Smoking and tobacco status: never smoked Alcohol intake: never Substance/Drug Use: current Substance/Drug use frequency: daily Lives independently: Yes Housing: House Marital status: Single 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, 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 Const: COMMON NORMALS: no acute distress, average body habitus, patient oriented x3, no limitations, healthy appearing, alert and well nourished GENERAL APPEARANCE: cooperative ORIENTATION/CONSCIOUSNESS: Yes awake, Yes oriented to person, Yes oriented to place and Yes oriented to time HENMT: COMMON NORMALS: normocephalic and atraumatic HEAD & SCALP: normal to inspection, normocephalic and atraumatic Eye: COMMON NORMALS: no scleral icterus GENERAL EYE: appearance normal, both eyes and all related structures Neck/C-Spine: COMMON NORMALS: full ROM, no lymphadenopathy and no meningeal signs Resp: COMMON NORMALS: normal respiratory effort and clear to auscultation bilaterally AUSCULTATION: clear to auscultation bilaterally Cardio: COMMON NORMALS: regular rate and regular rhythm RATE: regular rate RHYTHM: regular rhythm GI: COMMON NORMALS: Normal to inspection, nondistended, normoactive bowel sounds present, Soft to palpation, No hepatosplenomegaly present and no masses INSPECTION: Yes normal to inspection PALPATION: Yes Soft to palpation, Yes Tenderness to palpation present (GI) (diffuse), No Guarding due to palpation present (GI), No Rigid due to palpation and Yes No hepatosplenomegaly present : COMMON NORMALS: Yes no CVA tenderness BLADDER/KIDNEY EXAM: Yes no CVA tenderness Back/Pelvis: COMMON NORMALS: no CVA tenderness Extremity: COMMON NORMALS: normal to inspection GENERAL: Yes normal exam except as noted Neuro: [place] COMA SCALE: document GCS findings [place] coma scale eye opening: Spontaneous [place] coma scale verbal response: Orientated [place] coma scale motor response: Obey commands [place] coma scale total score: 15 COMMON NORMALS: patient oriented x3, moves all extremities, no focal motor deficits, no sensory deficits noted and gait normal SENSORIUM/ORIENTATION: Yes alert, Yes oriented to person, Yes oriented to place and Yes oriented to time MENINGEAL SIGNS: Yes no meningeal signs Skin: COMMON NORMALS: no rashes or lesions noted GENERAL SKIN EXAM: no rashes or lesions noted Course Vital Signs: Vital signs: Vital Signs Temperature 98.0 F 01/12/23 10:40 Pulse Rate 92 01/12/23 10:40 Respiratory Rate 24 H 01/12/23 10:40 Blood Pressure 131/83 01/12/23 10:40 Pulse Oximetry 100 01/12/23 10:40 MDM - Nausea/Vomiting/Diarrhea Medical Decision Making Patient here with complaints of abdominal pain, nausea, vomiting. She has a longstanding history of identical symptoms has been seen here in our emergency department multiple times. She has been told by multiple providers her symptoms are secondary to marijuana use but she refuses to believe this. Patient has been smoking habitually for the past 9 years. She states she stopped smoking for approximately 3 months to see if this helps with symptoms but it did not. Tried to explain to patient that after smoking for 9 years it is going to take much longer than 3 months to note any improvement and honestly I would recommend complete cessation indefinitely. She does not seem open to this suggestion. Patient has held down food/liquid here. She is requesting Ativan/Haldol at home which is what she received here as she states this worked. Lab Data 01/12/23 11:02 01/12/23 11:02 Laboratory Results WBC 11.08 10^3/uL (3.29-11.43) 01/12/23 11:02 RBC 4.87 10^6/uL (3.85-5.65) 01/12/23 11:02 Hgb 14.90 g/dL (11.27-16.99) 01/12/23 11:02 Hct 41.8 % (36-47) 01/12/23 11:02 MCV 85.8 fl (85-98) 01/12/23 11:02 MCH 30.6 pg (27-33) 01/12/23 11:02 MCHC 35.6 g/dL (30-55) 01/12/23 11:02 RDW 11.4 % (12.1-15.1) L 01/12/23 11:02 Plt Count 297 10^3/cmm (157-399) 01/12/23 11:02 MPV 10.2 fL (7.4-10.4) 01/12/23 11:02 Neut % (Auto) 79.1 % 01/12/23 11:02 Lymph % (Auto) 14.7 % 01/12/23 11:02 Isabela % (Auto) 5.4 % 01/12/23 11:02 Eos % (Auto) 0.0 % 01/12/23 11:02 Baso % (Auto) 0.3 % 01/12/23 11:02 Neut # (Auto) 8.77 10^3/uL (1.8-7.7) H 01/12/23 11:02 Lymph # (Auto) 1.6 10^3/uL (0.8-4.8) 01/12/23 11:02 Isabela # (Auto) 0.6 10^3/uL (0.2-0.9) 01/12/23 11:02 Eos # (Auto) 0.0 10^3/uL (0.0-0.8) 01/12/23 11:02 Baso # (Auto) 0.0 10^3/uL (0.0-0.1) 01/12/23 11:02 Nucleated RBC % (auto) 0 % 01/12/23 11:02 Nucleated RBCs # 0.0 /100WBC 01/12/23 11:02 Sodium 134 mmol/L (136-145) L 01/12/23 11:02 Potassium 3.3 mmol/L (3.5-5.1) L 01/12/23 11:02 Chloride 92 mmol/L (98-107) L 01/12/23 11:02 Carbon Dioxide 25 mmol/L (22-29) 01/12/23 11:02 Anion Gap 20.3 (5-19) H 01/12/23 11:02 BUN 14 mg/dL (6-20) 01/12/23 11:02 Creatinine 0.8 mg/dL (0.5-0.9) 01/12/23 11:02 GFR Calculation 87.4 mL/min (90-130) L 01/12/23 11:02 Glucose 85 mg/dL (65-115) 01/12/23 11:02 Calculated Osmolality 278 mOsm/kg (285-295) L 01/12/23 11:02 Calcium 9.6 mg/dL (8.5-10.5) 01/12/23 11:02 Total Bilirubin 1.0 mg/dL (0.15-1.2) 01/12/23 11:02 AST 17 U/L (0-32) 01/12/23 11:02 ALT 15 U/L (0-33) 01/12/23 11:02 Alkaline Phosphatase 58 U/L (35-105) 01/12/23 11:02 Total Protein 7.5 g/dL (6.6-8.7) 01/12/23 11:02 Albumin 4.9 g/dL (3.5-5.2) 01/12/23 11:02 Globulin 2.6 g/dL (1.3-4.6) 01/12/23 11:02 Lipase 25 U/L (13-60) 01/12/23 11:02 HCG, Qual Negative (Negative) 01/12/23 11:02 Discharge Plan Discharge Patient Disposition: Home Clinical Impression: Cannabinoid hyperemesis syndrome Condition: Stable Prescriptions: New haloperidol 2 mg tablet 2 mg PO Q8H PRN (Reason: nausea and vomiting) Qty: 10 0RF Continued Ativan 2 mg tablet 2 mg buccal TID PRN (Reason: nausea and vomiting) Qty: 10 0RF ondansetron 4 mg tablet,disintegrating 4 mg PO Q6H PRN (Reason: nausea and vomiting) Qty: 14 0RF Discontinued olanzapine 10 mg tablet,disintegrating 10 mg PO Q8H PRN (Reason: nausea and vomiting) Qty: 10 0RF Discharge Orders: Discharge ED (Routine); Ordered 01/12/23 Ordered By: Komal Kilpatrick Referrals: Aureliano Rodas MD [Primary Care Provider] - Patient Instructions: Cannabis Use Disorder (ED) Coding Level of Care Code ED Lab Technologist for Carlos Ahuja
--- NOTE | 2023-01-12 11:02 | PC.NURSE ---
PT WAS SEEN BY NURSE AND PA AT SAME TIME. LABS ALSO DRAWN WITH IV START
[2023-01-12] MEDS: sodium chloride 0.9% 1,000 ML 999 ML IV (11:05)
[2023-01-12] MEDS: haloperidol inj 5 mg/mL INJ 1 mL 2.5 MG IVP (11:09)
[2023-01-12] MEDS: LORazepam 2 mg/mL INJ 1 mL IVP (11:09)
[2023-01-12] MEDS: metoclopramide 5 mg/mL SDV 2 mL 10 MG IVP (11:09)
[2023-01-12 11:11] VITALS: PULSE 74; RESP 18; O2SAT 99
[2023-01-12 11:12] LABS: Basophils % 0.3 %; Hematocrit 41.8 % (36-47); Lymphocytes # 1.6 10^3/uL (0.8-4.8); Lymphocytes % 14.7 %; Mean Corpuscular HGB Conc 35.6 g/dL (30-55); Mean Corpuscular Hemoglobin 30.6 pg (27-33); Mean Corpuscular Volume 85.8 fl (85-98); Mean Platelet Volume 10.2 fL (7.4-10.4); Monocytes # 0.6 10^3/uL (0.2-0.9); Monocytes % 5.4 %; Neutrophils # 8.77 10^3/uL (1.8-7.7); Neutrophils % 79.1 %; Nucleated Red Blood Cells % 0 %; Platelet Count 297 10^3/cmm (157-399); Red Blood Count 4.87 10^6/uL (3.85-5.65); Red Cell Distribution Width 11.4 % (12.1-15.1); White Blood Count 11.08 10^3/uL (3.29-11.43)
[2023-01-12 11:26] LABS: HCG, Serum Qual Negative (Negative)
[2023-01-12 11:29] LABS: Alanine Aminotransferase 15 U/L (0-33); Albumin Level 4.9 g/dL (3.5-5.2); Alkaline Phosphatase 58 U/L (35-105); Anion Gap 20.3 (5-19); Aspartate Amino Transferase 17 U/L (0-32); Blood Urea Nitrogen 14 mg/dL (6-20); Calcium 9.6 mg/dL (8.5-10.5); Carbon Dioxide 25 mmol/L (22-29); Chloride 92 mmol/L (98-107); Globulin 2.6 g/dL (1.3-4.6); Glomerular Filtration Rate 87.4 mL/min (90-130); Glucose 85 mg/dL (65-115); Lipase 25 U/L (13-60); Osmolality Calculated 278 mOsm/kg (285-295); Potassium 3.3 mmol/L (3.5-5.1); Sodium 134 mmol/L (136-145); Total Protein 7.5 g/dL (6.6-8.7)
[2023-01-12 13:02] VITALS: BP 131/72; PULSE 85; O2SAT 85
== END 2023-01-12 13:04 | disposition home or self-care (01) ==
PROVIDERS: Emergency Provider Physician Assistant; PCP Family Medicine
DX: R11.2 Nausea with vomiting, unspecified (principal); F12.90 Cannabis use, unspecified, uncomplicated
CPT/HCPCS: 80053; 83690; 84703; 85025; 96374; 96375; 99284; J1630; J2060; J2765; J7030

== ENCOUNTER 2023-09-12 06:05 | Emergency (ER) | payer SELFPAY ==
[2023-09-12 06:12] VITALS: BP 112/71; PULSE 96; RESP 16; TEMP 37.1; O2SAT 96; BMI 25.0
--- NOTE | 2023-09-12 06:47 | W.ED.EYEPROB ---
HPI - Eye Problem General: Chief complaint: Eye Problems Stated complaint: foreign object in right eye Time Seen by Provider: 09/12/23 06:45 Source: patient Mode of arrival: ambulatory Limitations: no limitations History of Present Illness: Patient states she was awakened this morning with pain in her right eye. She states it feels like a foreign body sensation. She states she was in her normal state of health yesterday and did not work in a [place] or otherwise risky environments for foreign bodies. He does not wear contact lenses or eyeglasses. She did wear fake eyelashes last night but states that she removes them without any issue. She is worn them previously. She denies any fevers or chills recent upper respiratory infections etc. MD chief complaint: eye pain Associated symptoms: Denies fever(s) or headache(s) Review of Systems Const: Denies: fever(s) or chills Eyes: Reports: blurry vision and eye discomfort ENMT: Denies: throat pain, nasal discharge or nasal congestion Skin/Breast: Denies: rash, pruritus or erythema Neuro: Denies: headache(s), numbness in extremities or weakness in extremities PFSH ED PFSH: Medical History (Updated 09/12/23 @ 07:07 by Lazarus George DO) Cannabinoid hyperemesis syndrome Cannabis hyperemesis syndrome concurrent with and due to cannabis abuse Surgical History S/P tonsillectomy and adenoidectomy Family History Mother Cyclical vomiting Social History Smoking and tobacco/nicotine status: never used tobacco/nicotine Alcohol intake: never Substance/Drug Use: current Substance/Drug use frequency: daily Lives independently: Yes Housing: House Marital status: Single 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, works at night as [employer] Female 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 History: Date of last menstrual period: 09/06/23 Physical Exam Narrative: EXAM NARRATIVE: Patient's anxious and very uncomfortable but able answer questions in a goal-directed fashion. Const: COMMON NORMALS: average body habitus and patient oriented x3 GENERAL APPEARANCE: cooperative HENMT: COMMON NORMALS: normocephalic, atraumatic, external ears normal, Normal nasal mucous membranes and turbinates present, moist oral mucous membranes and oropharynx normal HEAD & SCALP: normocephalic and atraumatic NOSE: Normal nasal mucous membranes and turbinates present EXTERNAL EAR: Yes external ears normal Eye: COMMON NORMALS: Equal, round and reactive pupils present and EOMs intact bilaterally VISUAL ACUITY: Yes acuity normal, Yes visual acuity right eye (20/50) and Yes visual acuity left eye (20/20) CORNEA: Yes fluorescein used PUPIL: Yes Equal, round and reactive pupils present OTHER: Examination of both eyes revealed her left eye to be normal in appearance. Both pupils are equal and reactive to light. She has injection of the right conjunctiva. Eversion of the upper lid reveals no evidence of foreign body there with direct examination and thorough examination there is no evidence of retained foreign body. Pupil is equal and reactive to that on the contralateral side. Extraocular motion was intact. There is no erythema around the orbit. There is no step-off etc. Fluorescein stain revealed a corneal abrasion to the inner lower quadrant of the right eye. Neck/C-Spine: COMMON NORMALS: no lymphadenopathy Chest: COMMONS NORMALS: normal inspection of the chest Resp: COMMON NORMALS: normal respiratory effort Extremity: COMMON NORMALS: normal to inspection and full ROM Neuro: COMMON NORMALS: patient oriented x3, moves all extremities, no focal motor deficits and no sensory deficits noted CRANIAL NERVES: Yes CN normal except as noted Skin: COMMON NORMALS: no rashes or lesions noted and no wounds GENERAL SKIN EXAM: no rashes or lesions noted Course Vital Signs: Vital signs: Vital Signs Temperature 98.7 F 09/12/23 06:12 Pulse Rate 96 09/12/23 06:12 Respiratory Rate 16 09/12/23 06:12 Blood Pressure 112/71 09/12/23 06:12 Pulse Oximetry 96 09/12/23 06:12 Oxygen Delivery Me thod Room Air 09/12/23 06:12 MDM - Eye Problem Medical Decision Making Patient presented with right eye pain overnight onset. History of false eyelash use but no contact lenses or known foreign bodies. Visual acuity was notable for right being less than the left eye. Clinical examination revealed evidence of corneal abrasion on the right involved without any evidence of foreign body or other injuries. No prior history of eye disease such as iritis, contact lens use etc. Simple corneal abrasion will treat in the usual and excepted fashion with antibiotic ointment for lubrication 4 times a day for the next 48 hours. We also discussed analgesia and we will give her 1 mL of tetracaine to use for no longer than 24 hours for pain relief. She was specifically instructed to return to this emergency department in 24 hours if she was still having eye pain and not use any more tetracaine. No radiology studies performed this visit Discharge Plan Discharge Patient Disposition: Home Clinical Impression: Corneal abrasion, right Qualifiers: Encounter type: initial encounter Qualified Code(s): S05.01XA - Injury of conjunctiva and corneal abrasion without foreign body, right eye, initial encounter Condition: Stable Prescriptions: No Action haloperidol 2 mg tablet 2 mg PO Q8H PRN (Reason: nausea and vomiting) Qty: 10 0RF Ativan 2 mg tablet 2 mg buccal TID PRN (Reason: nausea and vomiting) Qty: 10 0RF ondansetron 4 mg tablet,disintegrating 4 mg PO Q6H PRN (Reason: nausea and vomiting) Qty: 14 0RF Discharge Orders: Discharge ED (Routine); Ordered 09/12/23 Ordered By: Lazarus George Referrals: Aureliano Rodas MD [Primary Care Provider] - Discharge Activity: Limit activity as instructed Patient Instructions: Opioid Safety, Pain Management Activity Restrictions/Additional Instructions: As we discussed you have a area on your right eye that has been scratched or abraded in some fashion. These injuries usually heal very quickly. We have provided antibiotic ointment to place approximately half inch ribbon in the lower eyelid of the right eye 4 times daily for the next 2 days to help lubricate and reduce the risk of infection. We have also per side provided you a small very small amount of a eyedrop that will help reduce your pain. As we discussed while you are in the emergency department this pain drops should only be used for 24 hours. If you are still having pain in the right eye or change in your vision or any other concerns you should return to this or the nearest emergency department immediately. Coding Level of Care Code ED Laboratory Technologist for Carlos Ahuja
== END 2023-09-12 07:22 | disposition home or self-care (01) ==
PROVIDERS: Emergency Provider Emergency Medicine; PCP Family Medicine
DX: S05.01XA Injury of conjunctiva and corneal abrasion without foreign body, right eye, initial encounter (principal); X58.XXXA Exposure to other specified factors, initial encounter
CPT/HCPCS: 99282

== ENCOUNTER 2024-10-19 10:37 | Emergency (ER) | payer SELFPAY ==
[2024-10-19 10:57] VITALS: BP 113/59; PULSE 72; RESP 18; TEMP 36.7; O2SAT 96; BMI 23.6
[2024-10-19 11:00] LABS: Basophils % 0.4 %; Eosinophils % 0.1 %; Hematocrit 39.3 % (36-47); Lymphocytes # 1.5 10^3/uL (0.8-4.8); Lymphocytes % 18.5 %; Mean Corpuscular HGB Conc 36.1 g/dL (30-55); Mean Corpuscular Volume 85.8 fl (85-98); Mean Platelet Volume 9.9 fL (7.4-10.4); Monocytes # 0.3 10^3/uL (0.2-0.9); Monocytes % 3.8 %; Neutrophils # 6.04 10^3/uL (1.8-7.7); Neutrophils % 76.6 %; Nucleated Red Blood Cells % 0 %; Platelet Count 250 10^3/cmm (157-399); Red Blood Count 4.58 10^6/uL (3.85-5.65); Red Cell Distribution Width 11.8 % (12.1-15.1); White Blood Count 7.89 10^3/uL (3.29-11.43)
--- NOTE | 2024-10-19 11:04 | W.ED.NAVMDI ---
HPI - Nausea/Vomiting/Diarrhea General: Chief complaint: Nausea/Vomiting/Diarrhea Stated complaint: vomitting Time Seen by Provider: 10/19/24 11:03 History of Present Illness: 29-year-old female presents to the emergency room said problems in the past with cyclic vomiting she also had associated hyperemesis cannabinoid. She is cut back quite a bit on her use of THC products this is the first time she has had an episode in quite some time. Last time documented on the chart goes back almost to full 2 years. Patient also reports recently at home positive test and is had some increased vaginal bleeding she is concerned she may be miscarrying. She has not had any confirmation testing with a physician. Associated nausea: Yes Associated symtoms: Reports nausea; Denies chest pain or dysuria Related Data Home Medications ?Medication ?Instructions ?Recorded ?Confirmed sertraline 50 mg tablet (Zoloft) 50 mg PO DAILY 03/03/24 10/19/24 lamotrigine 100 mg tablet 100 mg PO DAILY 10/19/24 10/19/24 triamcinolone acetonide 0.5 % 1 applic topical BID for 7 days 10/19/24 10/19/24 topical cream Previous Rx's ?Medication ?Instructions ?Recorded lorazepam 2 mg tablet (Ativan) 2 mg PO Q8H PRN nausea and 10/19/24 vomiting #14 tabs potassium chloride 20 mEq 20 meq PO BID #6 tabs 10/19/24 tablet,extended release(part/cryst) (Klor-Con M) promethazine 25 mg tablet 25 mg PO Q6H PRN nausea and 10/19/24 vomiting #20 tabs Allergies Allergy/AdvReac Type Severity Reaction Status Date / Time hydrocodone Allergy ALGY-Hives Verified 08/31/24 10:48 Review of Systems Const: Denies: fever(s) or chills Card: Denies: chest pain Resp: Denies: dyspnea GI: Reports: nausea and vomiting; Denies: abdominal pain, hematemesis, hematochezia or melena : Reports: vaginal bleeding (tapering); Denies: dysuria, urinary frequency or urinary urgency Musc: Denies: neck pain or back pain Skin/Breast: Denies: rash PFSH ED PFSH: Medical History (Updated 10/19/24 @ 13:17 by Mino Tate DO) Cannabinoid hyperemesis syndrome Cannabis hyperemesis syndrome concurrent with and due to cannabis abuse Surgical History S/P tonsillectomy and adenoidectomy Family History Mother Cyclical vomiting Social History Smoking and tobacco/nicotine status: current every day tobacco/nicotine user Alcohol intake: never Substance/Drug Use: current Substance/Drug use frequency: daily Lives independently: Yes Housing: House Marital status: Single 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, 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 Const: COMMON NORMALS: no acute distress GENERAL APPEARANCE: cooperative and comfortable ORIENTATION/CONSCIOUSNESS: Yes awake, Yes oriented to person, Yes oriented to place and Yes oriented to time HENMT: COMMON NORMALS: normocephalic, atraumatic and hearing grossly normal bilaterally HEAD & SCALP: normocephalic and atraumatic Resp: COMMON NORMALS: normal respiratory effort, No retractions, No use of accessory muscles and clear to auscultation bilaterally AUSCULTATION: clear to auscultation bilaterally Cardio: COMMON NORMALS: regular rate, regular rhythm and No murmurs present (Cardio) RATE: regular rate RHYTHM: regular rhythm GI: COMMON NORMALS: Soft to palpation and No hepatosplenomegaly present AUSCULTATION: Yes normoactive bowel sounds PALPATION: Yes Soft to palpation, No Tenderness to palpation present (GI), No Guarding due to palpation present (GI) and Yes No hepatosplenomegaly present Extremity: COMMON NORMALS: normal to inspection, capillary refill normal, no clubbing, cyanosis or edema, no calf tenderness and no pedal edema Neuro: SENSORIUM/ORIENTATION: Yes oriented to person, Yes oriented to place and Yes oriented to time Skin: COMMON NORMALS: no rashes or lesions noted GENERAL SKIN EXAM: no rashes or lesions noted Course Vital Signs: Vital signs: Vital Signs Temperature 98.1 F 10/19/24 10:57 Pulse Rate 63 10/19/24 15:00 Respiratory Rate 16 10/19/24 15:00 Blood Pressure 98/58 10/19/24 15:00 Pulse Oximetry 97 10/19/24 15:00 Oxygen Delivery Me thod Room Air 10/19/24 10:57 MDM - Nausea/Vomiting/Diarrhea Medical Decision Making Patient feeling much better after medications and fluids will discharge patient home. Continue use promethazine or lorazepam as needed for her persistent nausea and vomiting. Her beta-hCG is 150 this should be repeated in 72 hours with your primary care doctor. Discussed this with her. She was also given potassium supplement for her hypokalemia. Medical Records I reviewed the patient's medical records. Lab Data I reviewed the patient's lab results. 10/19/24 10:53 10/19/24 10:53 Laboratory Results WBC 7.89 10^3/uL (3.29-11.43) 10/19/24 10:53 RBC 4.58 10^6/uL (3.85-5.65) 10/19/24 10:53 Hgb 14.20 g/dL (11.27-16.99) 10/19/24 10:53 Hct 39.3 % (36-47) 10/19/24 10:53 MCV 85.8 fl (85-98) 10/19/24 10:53 MCH 31.0 pg (27-33) 10/19/24 10:53 MCHC 36.1 g/dL (30-55) 10/19/24 10:53 RDW 11.8 % (12.1-15.1) L 10/19/24 10:53 Plt Count 250 10^3/cmm (157-399) 10/19/24 10:53 MPV 9.9 fL (7.4-10.4) 10/19/24 10:53 Neut % (Auto) 76.6 % 10/19/24 10:53 Lymph % (Auto) 18.5 % 10/19/24 10:53 [place] % (Auto) 3.8 % 10/19/24 10:53 Eos % (Auto) 0.1 % 10/19/24 10:53 Baso % (Auto) 0.4 % 10/19/24 10:53 Neut # (Auto) 6.04 10^3/uL (1.8-7.7) 10/19/24 10:53 Lymph # (Auto) 1.5 10^3/uL (0.8-4.8) 10/19/24 10:53 [place] # (Auto) 0.3 10^3/uL (0.2-0.9) 10/19/24 10:53 Eos # (Auto) 0.0 10^3/uL (0.0-0.8) 10/19/24 10:53 Baso # (Auto) 0.0 10^3/uL (0.0-0.1) 10/19/24 10:53 Nucleated RBC % (auto) 0 % 10/19/24 10:53 Nucleated RBCs # 0.0 /100WBC 10/19/24 10:53 Sodium 135 mmol/L (136-145) L 10/19/24 10:53 Potassium 3.0 mmol/L (3.5-5.1) L 10/19/24 10:53 Chloride 99 mmol/L (98-107) 10/19/24 10:53 Carbon Dioxide 23 mmol/L (22-29) 10/19/24 10:53 Anion Gap 16.0 (5-19) 10/19/24 10:53 BUN 8 mg/dL (6-20) 10/19/24 10:53 Creatinine 0.8 mg/dL (0.5-0.9) 10/19/24 10:53 GFR Calculation 86.0 mL/min (90-130) L 10/19/24 10:53 Glucose 129 mg/dL (65-115) H 10/19/24 10:53 Calculated Osmolality 280 mOsm/kg (285-295) L 10/19/24 10:53 Calcium 9.3 mg/dL (8.5-10.5) 10/19/24 10:53 Total Bilirubin 0.7 mg/dL (0.15-1.2) 10/19/24 10:53 AST 29 U/L (0-32) 10/19/24 10:53 ALT 47 U/L (0-33) H 10/19/24 10:53 Alkaline Phosphatase 52 U/L (35-105) 10/19/24 10:53 Total Protein 7.0 g/dL (6.6-8.7) 10/19/24 10:53 Albumin 4.4 g/dL (3.5-5.2) 10/19/24 10:53 Globulin 2.6 g/dL (1.3-4.6) 06/18/25 10:53 Lipase 43 U/L (13-60) 10/19/24 10:53 HCG, Qual Positive (Negative) H 10/19/24 10:53 Ser , Semi-Qnt 150.40 mIU/mL 10/19/24 10:53 No radiology studies performed this visit Discharge Plan Discharge Patient Disposition: Home Clinical Impression: Cyclic vomiting syndrome, Miscarriage, threatened, early Condition: Stable Prescriptions: New promethazine 25 mg tablet 25 mg PO Q6H PRN (Reason: nausea and vomiting) Qty: 20 0RF lorazepam [Ativan] 2 mg tablet 2 mg PO Q8H PRN (Reason: nausea and vomiting) Qty: 14 0RF potassium chloride [Klor-Con M20] 20 mEq tablet,ER particles/crystals 20 meq PO BID Qty: 6 0RF No Action sertraline [Zoloft] 50 mg tablet 50 mg PO DAILY lamotrigine 100 mg tablet 100 mg PO DAILY triamcinolone acetonide 0.5 % cream 1 applic topical BID Discharge Orders: Discharge ED (Routine); Ordered 10/19/24 Ordered By: Mino Tate Referrals: Aureliano Rodas MD [Primary Care Provider, Family Practice] Discharge Diet: Clear Liquid Discharge Activity: Increase activity as tolerated Patient Instructions: Opioid Safety, Pain Management Activity Restrictions/Additional Instructions: Thank you for choosing [facility] for your healthcare needs today. It is very important that you follow up as instructed or that you return to the Emergency Department should you have concerns or if your condition changes or worsens in any way. You were seen emergency room with complaints of cyclic vomiting. Improved with fluids and medications given. Laboratory test were otherwise not significantly abnormal. He did have mild low potassium for which we will give you a potassium supplement to start tomorrow 1 pill twice a day for 3 days. Print Language: Nepalese Coding Level of Care Code ED Assistant [employer] Professional for Carlos Ahuja
[2024-10-19 11:15] LABS: Alanine Aminotransferase 47 U/L (0-33); Albumin Level 4.4 g/dL (3.5-5.2); Alkaline Phosphatase 52 U/L (35-105); Aspartate Amino Transferase 29 U/L (0-32); Blood Urea Nitrogen 8 mg/dL (6-20); Calcium 9.3 mg/dL (8.5-10.5); Carbon Dioxide 23 mmol/L (22-29); Chloride 99 mmol/L (98-107); Globulin 2.6 g/dL (1.3-4.6); Glucose 129 mg/dL (65-115); HCG, Serum Qual Positive (Negative); Lipase 43 U/L (13-60); Osmolality Calculated 280 mOsm/kg (285-295); Sodium 135 mmol/L (136-145); Total Bilirubin 0.7 mg/dL (0.15-1.2)
[2024-10-19] MEDS: prochlorperazine 10 mg/2 mL Inj IVP (11:25)
[2024-10-19] MEDS: LORazepam 1 MG/0.5 ML injection 2 MG IVP (11:25)
[2024-10-19 11:38] VITALS: BP 114/68; O2SAT 96
[2024-10-19] MEDS: sodium chloride 0.9% 1,000 ML 999 ML IV ×2 (12:00→12:47)
[2024-10-19 12:04] VITALS: BP 99/65; O2SAT 99
--- NOTE | 2024-10-19 12:19 | PC.PHAR ---
Pt could not stay awake to answer questions about medications. Verified with [facility] for current medications with last fill date and day supply.
[2024-10-19 15:00] VITALS: BP 98/58; PULSE 63; RESP 16; O2SAT 97
== END 2024-10-19 15:01 | disposition home or self-care (01) ==
PROVIDERS: Emergency Medicine; Emergency Provider Family Medicine; PCP Family Medicine
DX: R11.15 Cyclical vomiting syndrome unrelated to migraine (principal); O20.0 Threatened abortion; Z3A.00 Weeks of gestation of pregnancy not specified; Z72.0 Tobacco use
CPT/HCPCS: 36415; 80053; 83690; 84702; 84703; 85025; 96361; 96374; 96375; 99284; J0780; J2060; J7030